=== PATIENT | female | born 1930 | race Caucasian/White ===

== ENCOUNTER 2017-06-24 10:53 | Emergency (ER) | payer MEDICARE, BC ==
--- NOTE | 2017-06-24 12:12 | ERPHSYRPT ---
- History of Present Illness Time Seen by Provider: 06/24/17 11:54 Source: patient, family (son and daughter in law) Patient Subjective Stated Complaint: vomiting and diarrhea lst pm, denies fever , family is historian due to patient having alzheimers Triage Nursing Assessment: pt to er per wheelchair with daugher in law, family reports caregivier advised diarrhea and vomiting last night, no fever, denies pain or discomfort, denies any other complaints Physician History: CC: vomiting and diarrhea Hx: 87 y/o Alzheimer patient cared for at home with 24 hour family care. She has had copious vomiting and diarrhea thru the night./ This AM was generally weak and barely able to walk. No focal weakness. Stared at them funny. No further vomiting or diarrhea. No fever. She sees Dr Camacho. Timing/Duration: today, yesterday Allergies/Adverse Reactions: No Known Drug Allergies Allergy (Verified 03/12/16 15:12) Hx Tetanus, Diphtheria Vaccination/Date Given: No Hx Influenza Vaccination/Date Given: Yes Hx Pneumococcal Vaccination/Date Given: Yes - Review of Systems Constitutional: Fatigue, Malaise, Weakness, No Fever, No Chills Eyes: No Symptoms Ears, Nose, & Throat: No Symptoms Respiratory: No Cough, No Dyspnea Cardiac: No Chest Pain Abdominal/Gastrointestinal: Nausea, Vomiting, Diarrhea, No Abdominal Pain Genitourinary Symptoms: No Dysuria Skin: No Rash Neurological: No Headache All Other Systems: Reviewed and Negative - Past Medical History Pertinent Past Medical History: Yes Neurological History: Alzheimer's Disease ENT History: No Pertinent History Cardiac History: No Pertinent History Respiratory History: No Pertinent History Endocrine Medical History: No Pertinent History Musculoskeletal History: No Pertinent History GI Medical History: No Pertinent History History: No Pertinent History Psycho-Social History: No Pertinent History Female Reproductive Disorders: No Pertinent History Other Medical History: daughter in law states no medical history, no surgical history, no medication, no allergies, has 24 hour accompaniment in her own home - Past Surgical History Past Surgical History: No Neuro Surgical History: No Pertinent History Cardiac: No Pertinent History Respiratory: No Pertinent History Gastrointestinal: No Pertinent History Genitourinary: No Pertinent History Musculoskeletal: No Pertinent History Female Surgical History: No Pertinent History Other Surgical History: JOINT ASPIRATION OF THE KNEE - Social History Smoking Status: Never smoker Exposure to second hand smoke: No Drug Use: none Patient Lives Alone: No (cared for by family) - Female History Hx Now: No - Nursing Vital Signs Nursing Vital Signs: Initial Vital Signs Temperature 97.9 F 06/24/17 11:07 Pulse Rate 74 06/24/17 11:07 Respiratory Rate 20 06/24/17 11:07 Blood Pressure 187/85 06/24/17 11:07 O2 Sat by Pulse Oximetry 99 06/24/17 11:07 Pain Scale Pain Intensity 0 - Physical Exam General Appearance: alert Eye Exam: PERRL/EOMI Ears, Nose, Throat Exam: dry mucous membranes Neck Exam: normal inspection, non-tender, supple Respiratory Exam: normal breath sounds Cardiovascular Exam: regular rate/rhythm Gastrointestinal/Abdomen Exam: soft, No tenderness, No distention Extremity Exam: normal inspection, normal range of motion Neurologic Exam: alert, cooperative (but has trouble understanding everything due to dementia), No motor deficits Skin Exam: warm, dry, No rash SpO2 Interpretation: normal SpO2: 99 Oxygen Delivery: Room Air - Course Nursing assessment & vital signs reviewed: Yes EKG Interpreted by Me: RATE (71), Sinus Rhythm, NORMAL AXIS, NORMAL INTERVALS ( QTc 429), NORMAL QRS, NORMAL ST-T - Radiology Exams AAS X-ray Interpretation: Teleradiologist Report (a few small bowel air fluid leveling, rule out ileus vs enteritis.) Ordered Tests: Active Orders 24 hr Category Date Time Status Cath for Specimen-Straight STAT Care 06/24/17 12:08 Active EKG-ER Only STAT Care 06/24/17 12:07 Active Gown/Disrobe Pt STAT Care 06/24/17 12:09 Active IV Insertion STAT Care 06/24/17 12:07 Active OBSTR/ACUTE ABDOMEN SERIES Stat Exams 06/24/17 12:08 Completed CBC W DIFF Stat Lab 06/24/17 12:37 Completed CMP Stat Lab 06/24/17 12:37 Completed CULTURE,URINE Stat Lab 06/24/17 13:05 Received Lactic Acid Stat Lab 06/24/17 12:07 Completed UA W/ MICROSCOPIC Stat Lab 06/24/17 13:05 Completed Medication Summary Generic Name Dose Route Start Last Admin Trade Name Freq PRN Reason Stop Dose Admin Lactated Ringer's 1,000 mls @ 100 mls/hr 06/24/17 12:30 06/24/17 12:46 Lactated Ringers IV 07/24/17 12:29 100 mls/hr .Q10H SHANTE Administration Discontinued Medications Generic Name Dose Route Start Last Admin Trade Name Jael PRN Reason Stop Dose Admin Ceftriaxone Sodium/Dextrose 1 g in 50 mls @ 100 mls/hr 06/24/17 13:24 13:52 Rocephin 1 Gm-D5w 50 Ml Bag IV 06/24/17 13:53 100 mls/hr STAT STA Administration Ceftriaxone Sodium/Dextrose Confirm 06/24/17 13:50 Rocephin 1 Gm-D5w 50 Ml Bag Administered 06/24/17 13:51 Dose 1 g in 50 mls @ ud IV .STK-MED ONE Ondansetron HCl 4 mg 06/24/17 13:25 06/24/17 13:52 Zofran 4 Mg/2 Ml Vial IV 06/24/17 13:26 4 mg STAT ONE Administration Ondansetron HCl Confirm 06/24/17 13:49 Zofran 4 Mg/2 Ml Vial Administered 06/24/17 13:50 Dose 4 mg .ROUTE .STK-MED ONE Lab/Rad Data: Laboratory Result Diagrams 06/24/17 12:37 06/24/17 12:37 Laboratory Results 06/24/17 06/24/17 06/24/17 Range/Units 13:05 12:37 12:37 WBC 8.9 (4.0-10.5) K/mm3 RBC 4.94 (4.1-5.4) M/mm3 Hgb 13.6 (12.0-16.0) gm/dl Hct 41.7 (35-47) % MCV 84.4 (78-100) fl MCH 27.5 (26-32) pg MCHC 32.6 (32-36) g/dl RDW 14.7 H (11.5-14.0) % Plt Count 221 (150-450) K/mm3 MPV 9.2 (6-9.5) fl Gran % 83.2 H (36.0-66.0) % Lymphocytes % 7.6 L (24.0-44.0) % Monocytes % 8.5 (0.0-12.0) % Eosinophils % 0.6 (0.00-5.0) % Basophils % 0.1 (0.0-0.4) % Basophils # 0.01 (0-0.4) Sodium 141 (137-145) mmol/L Potassium 4.5 (3.5-5.1) mmol/L Chloride 103 (98-107) mEq/L Carbon Dioxide 26 (22-30) mmol/L Anion Gap 15.5 MEQ/L BUN 22 H (7-17) mg/dl Creatinine 1.08 H (0.52-1.04) mg/dl Estimated GFR 51 ML/MIN Glucose 103 (74-106) mg/dL Lactic Acid (0.4-2.0) Calcium 9.3 (8.4-10.2) mg/dl Total Bilirubin 0.70 (0.2-1.3) mg/d? AST 18 (14-36) U/L ALT 13 (0-35) U/L Alkaline Phosphatase 95 (38-126) U/L Serum Total Protein 6.7 (6.3-8.2) mg/dl Albumin 4.0 (3.5-5.0) g/dl Ur Collection Type CATH Urine Color YELLOW (YELLOW) Urine Appearance HAZY (CLEAR) Urine pH 5.0 (5-6) Ur Specific [place] 1.010 (1.005-1.025) Urine Protein TRACE (Negative) Urine Ketones NEGATIVE (NEGATIVE) Urine Blood 50 (0-5) Rafy/ul Urine Nitrite POSITIVE (NEGATIVE) Urine Bilirubin SMALL (NEGATIVE) Urine Urobilinogen NORMAL (0-1) mg/dL Ur Leukocyte Esterase TRACE (NEGATIVE) Urine Microscopic RBC 0-2 (0-2) /HPF Urine Microscopic WBC 10-15 (0-5) /HPF Urine Bacteria PACKED (NEGATIVE) /HPF Urine Culture Reflexed YES (NO) Urine Glucose NEGATIVE (NEGATIVE) mg/dL Specimen Received 06/24/17 1305 06/24/17 Range/Units 12:07 WBC (4.0-10.5) K/mm3 RBC (4.1-5.4) M/mm3 Hgb (12.0-16.0) gm/dl Hct (35-47) % MCV (78-100) fl MCH (26-32) pg MCHC (32-36) g/dl RDW (11.5-14.0) % Plt Count (150-450) K/mm3 MPV (6-9.5) fl Gran % (36.0-66.0) % Lymphocytes % (24.0-44.0) % Monocytes % (0.0-12.0) % Eosinophils % (0.00-5.0) % Basophils % (0.0-0.4) % Basophils # (0-0.4) Sodium (137-145) mmol/L Potassium (3.5-5.1) mmol/L Chloride (98-107) mEq/L Carbon Dioxide (22-30) mmol/L Anion Gap MEQ/L BUN (7-17) mg/dl Creatinine (0.52-1.04) mg/dl Estimated GFR ML/MIN Glucose (74-106) mg/dL Lactic Acid 1.8 (0.4-2.0) Calcium (8.4-10.2) mg/dl Total Bilirubin (0.2-1.3) mg/d? AST (14-36) U/L ALT (0-35) U/L Alkaline Phosphatase (38-126) U/L Serum Total Protein (6.3-8.2) mg/dl Albumin (3.5-5.0) g/dl Ur Collection Type Urine Color (YELLOW) Urine Appearance (CLEAR) Urine pH (5-6) Ur Specific [place] (1.005-1.025) Urine Protein (Negative) Urine Ketones (NEGATIVE) Urine Blood (0-5) Rafy/ul Urine Nitrite (NEGATIVE) Urine Bilirubin (NEGATIVE) Urine Urobilinogen (0-1) mg/dL Ur Leukocyte Esterase (NEGATIVE) Urine Microscopic RBC (0-2) /HPF Urine Microscopic WBC (0-5) /HPF Urine Bacteria (NEGATIVE) /HPF Urine Culture Reflexed (NO) Urine Glucose (NEGATIVE) mg/dL Specimen Received - Progress Progress Note: 06/24/17 14:48 Pt doing well here. A little general weak but walked in [place]. She ate a popsicle. Family prefers to take her home. Rx keflex and zofran. Counseled pt/family regarding: lab results, diagnosis, need for follow-up, rad results - Departure Time of Disposition: 14:48 Departure Disposition: Home Clinical Impression: Vomiting and diarrhea, UTI (urinary tract infection) Condition: Stable Critical Care Time: No Referrals: MICHAEL CAMACHO [Primary Care Provider] - Instructions: Diarrhea and Traveler's Diarrhea, Adult (DC), Nausea and Vomiting , Adult (DC) Additional Instructions: URINARY TRACT INFECTION 1. You will need to drink plenty of fluids in order to keep your urinary system flushed. These fluids should mainly consist of water and juices. 2. Take medications as directed. You need to completely finish any antiobiotic prescription given. 3. Try to avoid coffee, tea, alcohol, and seasoned foods as they may cause bladder irritation. 4. If signs and symptoms persist after 3-4 days, you will need to follow up with your family physician. 5. Female Patients: A. Avoid intercourse for 3-4 days. B. Empty bladder before and after intercourse to reduce risk of re- infection. C. After emptying bladder, wipe from front to back to reduce the risk of re- infection. Sip fluids. Rx zofran to [facility] Return for problems or concerns. Prescriptions: Ondansetron ODT 4 MG [Zofran Odt 4 mg] 1 tab PO Q6H PRN PRN #10 tab.rapdis PRN Reason: Nausea/Vomiting Cephalexin Mh 500 mg [Keflex 500 mg] 1 cap PO TID #21 capsule
[2017-06-24] MEDS ORDERED: Lactated Ringers 1,000 ML IV SCH (12:30)
[2017-06-24] MEDS ORDERED: Lactated Ringers 1,000 ML IV ONE (12:45)
[2017-06-24 12:48] LABS: BASOPHIL % 0.1 % (0.0-0.4); Basophil (Absolute #) 0.01 (0-0.4); Eosinophil % 0.6 % (0.00-5.0); Eosinophil (Absolute #) 0.05 (0-0.5); Granulocyte Absolute (ANC) 7.39 (1.4-6.9); Granulocytes % 83.2 % (36.0-66.0); Hematocrit 41.7 % (35-47); Hemoglobin 13.6 gm/dl (12.0-16.0); Lymphocyte (Absolute #) 0.67 (1.0-4.6); Lymphocytes % 7.6 % (24.0-44.0); Mean Cell Volume 84.4 fl (78-100); Mean Corpuscular Hemoglobin 27.5 pg (26-32); Mean Corpuscular Hgb Concent. 32.6 g/dl (32-36); Mean Platelet Volume 9.2 fl (6-9.5); Monocyte (Absolute #) 0.75 (0.0-1.3); Monocytes % 8.5 % (0.0-12.0); Platelet Count 221 K/mm3 (150-450); Red Blood Count 4.94 M/mm3 (4.1-5.4); Red Cell Distribution Width 14.7 % (11.5-14.0); White Blood Count 8.9 K/mm3 (4.0-10.5)
[2017-06-24 12:56] LABS: ANION GAP 15.5 MEQ/L; BILIRUBIN,TOTAL 0.7 mg/d? (0.2-1.3); Calcium 9.3 mg/dl (8.4-10.2); Creatinine 1 1.08 mg/dl (0.52-1.04); Potassium 4.5 mmol/L (3.5-5.1); Total Protein 6.7 mg/dl (6.3-8.2)
--- NOTE | 2017-06-24 13:06 | XRAY ---
Indication: Left upper abdominal pain. Vomiting. Comparison: None 2 views of the abdomen demonstrates a few small bowel air-fluid leveling. No focal bowel dilatation or obstruction. Previous cholecystectomy. Remaining solid organs unremarkable. Osseous structures demonstrates moderate osteopenia, multilevel degenerative spondylosis, and moderate levorotoscoliosis centered at L2-L3 level. Also mild bilateral hip degenerative changes. Single PA chest demonstrates minor fissure thickening. No infiltrate, consolidation, or large effusion. Heart is not enlarged. Mild aortic calcifications. Bony thorax intact with mild osteopenia, degenerative changes including right shoulder heterotopic ossifications, and double curvature scoliosis. Impression: 1. A few small bowel air-fluid leveling. Rule out ileus versus enteritis. 2. Nonacute 1 view chest with chronic features.
[2017-06-24 13:19] LABS: Appearance HAZY (CLEAR); Bilirubin SMALL (NEGATIVE); Blood 50 Ery/ul (0-5); Glucose NEGATIVE (NEGATIVE); Ketones NEGATIVE (NEGATIVE); Leukocyte Esterase TRACE (NEGATIVE); Nitrite POSITIVE (NEGATIVE); Protein,Urine Dip TRACE (Negative); Urobilinogen NORMAL mg/dL (0-1)
[2017-06-24 13:20] LABS: Bacteria PACKED /HPF (NEGATIVE)
[2017-06-24] MEDS ORDERED: ROCEPHIN 1 Gm-D5w 50 ml Bag** 1 G/50 ML IVPB IV STA (13:24)
[2017-06-24] MEDS ORDERED: Zofran 4 MG/2 ML VIAL IV ONE (13:25)
[2017-06-24] MEDS ORDERED: Zofran 4 MG/2 ML VIAL ONE (13:49)
[2017-06-24] MEDS ORDERED: ROCEPHIN 1 Gm-D5w 50 ml Bag** 1 G/50 ML IVPB IV ONE (13:50)
[2017-06-24 14:39] VITALS: BP 170/78; PULSE 68
[2017-06-24 14:51] VITALS: O2SAT 99
== END 2017-06-24 15:34 | disposition home or self-care (01) ==
LOC: ED 10:53
DX: R11.2 Nausea with vomiting, unspecified (principal); R19.7 Diarrhea, unspecified; N39.0 Urinary tract infection, site not specified; G30.9 Alzheimer's disease, unspecified; F02.80 Dementia in other diseases classified elsewhere, unspecified severity, without behavioral disturbance, psychotic disturbance, mood disturbance, and anxiety
CPT/HCPCS: 96374; 96365; 99285; 36000; 96360; 96361; 93005; 81000; 36415; 87186; 85025; 87077; 80053; 87086; 74022; 83605; P9612; 96367; J0696; J2405

== ENCOUNTER 2017-07-20 11:04 | Emergency (ER) | payer MEDICARE, BC ==
[2017-07-20] MEDS ORDERED: Catapres 0.1 MG PO ONE (11:25)
[2017-07-20] MEDS ORDERED: Sodium Chloride 0.9% 1000 ML 1,000 ML IV STA (11:25)
[2017-07-20] MEDS ORDERED: VASOTEC I.V. 2.5 MG IV ONE ×2 (11:25→11:32)
[2017-07-20] MEDS ORDERED: Sodium Chloride 0.9% 1000 ML 1,000 ML ONE (11:32)
[2017-07-20] MEDS ORDERED: Catapres 0.1 MG ONE (11:32)
--- NOTE | 2017-07-20 11:37 | ERPHSYRPT ---
- History of Present Illness Time Seen by Provider: 07/20/17 11:35 Source: patient, family Exam Limitations: no limitations Patient Subjective Stated Complaint: pt family reports pt with Alzheimer's with increased confusion, states care givers report a strong smell to the urine and a darker color than normal. pt denies pain. pt denies urinary s/s. Triage Nursing Assessment: pt is aox1, pupils perrl, pt is afebrile, resps easy and non labored, radial pulses are strong and equal. abd is soft and non tender , bowel sounds are present and normoactive x4. no edema appreciated to bilat lower extremities. Physician History: 87-year-old female without any significant past medical history except for dementia according to [id number] started having confusion episodes since yesterday. She was talking about her mother who has been for long years. Her [id number] also noticed that her urine is very cloudy and foul- smelling. Although patient denies any other symptoms. Timing/Duration: yesterday Associated Symptoms: denies symptoms Allergies/Adverse Reactions: No Known Drug Allergies Allergy (Verified 03/12/16 15:12) Hx Tetanus, Diphtheria Vaccination/Date Given: Yes Hx Influenza Vaccination/Date Given: Yes Hx Pneumococcal Vaccination/Date Given: Yes Immunizations Up to Date: Yes - Review of Systems Constitutional: No Fever, No Chills Eyes: No Symptoms Ears, Nose, & Throat: No Symptoms Respiratory: No Cough, No Dyspnea Cardiac: No Chest Pain, No Edema, No Syncope Abdominal/Gastrointestinal: No Abdominal Pain, No Nausea, No Vomiting, No Diarrhea Genitourinary Symptoms: No Dysuria Musculoskeletal: No Back Pain, No Neck Pain Skin: No Rash Neurological: No Dizziness, No Focal Weakness, No Sensory Changes Psychological: No Symptoms Endocrine: No Symptoms All Other Systems: Reviewed and Negative - Past Medical History Pertinent Past Medical History: Yes Neurological History: Alzheimer's Disease ENT History: No Pertinent History Cardiac History: No Pertinent History Respiratory History: No Pertinent History Endocrine Medical History: No Pertinent History Musculoskeletal History: No Pertinent History GI Medical History: No Pertinent History History: No Pertinent History Psycho-Social History: No Pertinent History Female Reproductive Disorders: No Pertinent History Other Medical History: daughter in law states no medical history, no surgical history, no medication, no allergies, has 24 hour accompaniment in her own home - Past Surgical History Past Surgical History: No Neuro Surgical History: No Pertinent History Cardiac: No Pertinent History Respiratory: No Pertinent History Gastrointestinal: No Pertinent History Genitourinary: No Pertinent History Musculoskeletal: No Pertinent History Female Surgical History: No Pertinent History Other Surgical History: JOINT ASPIRATION OF THE KNEE - Social History Smoking Status: Never smoker Exposure to second hand smoke: No Drug Use: none Patient Lives Alone: Yes (11/11 care nurse rn) - Nursing Vital Signs Nursing Vital Signs: Initial Vital Signs Temperature 97.6 F 07/20/17 11:07 Pulse Rate 68 07/20/17 11:07 Respiratory Rate 20 07/20/17 11:07 Blood Pressure 197/115 07/20/17 11:07 O2 Sat by Pulse Oximetry 96 07/20/17 11:07 Pain Scale Pain Intensity 0 - Physical Exam General Appearance: no apparent distress, alert Eye Exam: PERRL/EOMI, eyes nml inspection Ears, Nose, Throat Exam: normal ENT inspection, TMs normal, pharynx normal, moist mucous membranes Neck Exam: normal inspection, non-tender, supple, full range of motion Respiratory Exam: normal breath sounds, lungs clear, No respiratory distress Cardiovascular Exam: regular rate/rhythm, normal heart sounds, normal peripheral pulses Gastrointestinal/Abdomen Exam: soft, normal bowel sounds, No tenderness, No mass Back Exam: normal inspection, normal range of motion, No CVA tenderness, No vertebral tenderness Extremity Exam: normal inspection, normal range of motion, pelvis stable Neurologic Exam: alert, oriented x 3, cooperative, normal mood/affect, nml cerebellar function, nml station & gait, sensation nml, No motor deficits Skin Exam: normal color, warm, dry, No rash Lymphatic Exam: No adenopathy SpO2: 96 Oxygen Delivery: Room Air - Course Nursing assessment & vital signs reviewed: Yes EKG Interpreted by Me: Sinus Rhythm Ordered Tests: Active Orders 24 hr Category Date Time Status Cloth Examiner Hand STAT Care 07/20/17 11:26 Active Clean Catch Urine Specimen STAT Care 07/20/17 11:26 Active EKG-ER Only STAT Care 07/20/17 11:25 Active IV Insertion STAT Care 07/20/17 11:26 Active Oxygen-ED Only NASAL CANNULA 2 lpm Care 07/20/17 11:25 Active HEAD WITHOUT CONTRAST [CT] Stat Exams 07/20/17 11:26 Taken CBC W DIFF Stat Lab 07/20/17 11:35 Completed CMP Stat Lab 07/20/17 11:35 Completed CULTURE,URINE Stat Lab 07/20/17 11:26 Received TROPONIN Q3H Lab 07/20/17 11:35 Received UA W/ MICROSCOPIC Stat Lab 07/20/17 11:26 Completed Urine Triage Profile Stat Lab 07/20/17 11:26 Received Medication Summary Discontinued Medications Generic Name Dose Route Start Last Admin Trade Name Jael PRN Reason Stop Dose Admin Clonidine 0.1 mg 07/20/17 11:25 07/20/17 11:36 Catapres 0.1 Mg PO 07/20/17 11:26 0.1 mg STAT ONE Administration Clonidine Confirm 07/20/17 11:32 Catapres 0.1 Mg Administered 07/20/17 11:33 Dose 0.1 mg .ROUTE .STK-MED ONE Enalaprilat 0.625 mg 07/20/17 11:25 07/20/17 11:36 Vasotec I.V. 2.5 Mg IV 07/20/17 11:26 0.625 mg STAT ONE Administration Enalaprilat Confirm 07/20/17 11:32 Vasotec I.V. 2.5 Mg Administered 07/20/17 11:33 Dose 2.5 mg IV .STK-MED ONE Sodium Chloride 1,000 mls @ 999 mls/hr 07/20/17 11:25 07/20/17 11:36 Sodium Chloride 0.9% 1000 Ml IV 07/20/17 12:25 999 mls/hr .Q1H1M STA Administration Sodium Chloride Confirm 07/20/17 11:32 Sodium Chloride 0.9% 1000 Ml Administered 07/20/17 11:33 Dose 1,000 mls @ ud .ROUTE .STK-MED ONE Ceftriaxone Sodium/Dextrose 1 g in 50 mls @ 100 mls/hr 07/20/17 12:03 12:21 Rocephin 1 Gm-D5w 50 Ml Bag IV 07/20/17 12:32 100 mls/hr STAT STA Administration Ceftriaxone Sodium/Dextrose Confirm 07/20/17 12:10 Rocephin 1 Gm-D5w 50 Ml Bag Administered 07/20/17 12:11 Dose 1 g in 50 mls @ ud IV .STK-MED ONE Lab/Rad Data: Laboratory Result Diagrams 07/20/17 11:35 07/20/17 11:35 Laboratory Results 07/20/17 07/20/17 07/20/17 Range/Units 11:35 11:35 11:26 WBC 5.7 (4.0-10.5) K/mm3 RBC 4.93 (4.1-5.4) M/mm3 Hgb 13.7 (12.0-16.0) gm/dl Hct 41.1 (35-47) % MCV 83.4 (78-100) fl MCH 27.8 (26-32) pg MCHC 33.3 (32-36) g/dl RDW 14.4 H (11.5-14.0) % Plt Count 232 (150-450) K/mm3 MPV 8.7 (6-9.5) fl Gran % 54.7 (36.0-66.0) % Eos # (Auto) 0.23 (0-0.5) Absolute Lymphs (auto) 1.54 (1.0-4.6) Absolute Monos (auto) 0.78 (0.0-1.3) Lymphocytes % 27.1 (24.0-44.0) % Monocytes % 13.7 H (0.0-12.0) % Eosinophils % 4.0 (0.00-5.0) % Basophils % 0.5 (0.0-0.4) % Absolute Granulocytes 3.11 (1.4-6.9) Basophils # 0.03 (0-0.4) Sodium 141 (137-145) mmol/L Potassium 4.5 (3.5-5.1) mmol/L Chloride 107 (98-107) mmol/L Carbon Dioxide 22 (22-30) mmol/L Anion Gap 16.3 H (5-15) MEQ/L BUN 14 (7-17) mg/dL Creatinine 0.93 (0.52-1.04) mg/dL Estimated GFR > 60 ML/MIN Glucose 87 (74-106) mg/dL Calcium 9.7 (8.4-10.2) mg/dL Total Bilirubin 0.50 (0.2-1.3) mg/dL AST 22 (14-36) U/L ALT 13 (0-35) U/L Alkaline Phosphatase 80 (38-126) U/L Serum Total Protein 7.2 (6.3-8.2) g/dL Albumin 4.1 (3.5-5.0) g/dL Ur Collection Type CLEAN CATCH Urine Color YELLOW (YELLOW) Urine Appearance CLOUDY (CLEAR) Urine pH 5.0 (5-6) Ur Specific [place] 1.010 (1.005-1.025) Urine Protein TRACE (Negative) Urine Ketones NEGATIVE (NEGATIVE) Urine Blood 250 (0-5) Rafy/ul Urine Nitrite POSITIVE (NEGATIVE) Urine Bilirubin NEGATIVE (NEGATIVE) Urine Urobilinogen NORMAL (0-1) mg/dL Ur Leukocyte Esterase 2+ (NEGATIVE) Urine Microscopic WBC >100 (0-5) /HPF Urine Bacteria PACKED (NEGATIVE) /HPF Urine Culture Reflexed YES (NO) Urine Glucose NEGATIVE (NEGATIVE) mg/dL Specimen Received 07-20-17 1126 - Progress Progress: improved Counseled pt/family regarding: lab results, diagnosis, need for follow-up, rad results - Departure Time of Disposition: 12:40 Departure Disposition: Home Clinical Impression: Essential hypertension, Vascular dementia with behavior disturbance UTI (urinary tract infection) Qualifiers: Urinary tract infection type: acute pyelonephritis Qualified Code(s): N10 - Acute pyelonephritis Condition: Stable Critical Care Time: Yes Critical Care Time(excluding separately billable procedures): 30-74 minutes Referrals: MICHAEL CAMACHO [Primary Care Provider] - Instructions: Urinary Tract Infection, Adult (DC), Dementia (Including Alzheimer Disease), Dementia (DC), Tips for Caregivers of People With Alzheimer Disease, Medicines for High Blood Pressure, High Blood Pressure (DC) Additional Instructions: I U-type hiPlease follow-up with your primary care physician in next 2-3 days. Please take your medication as prescribed. You do have a high blood pressure problem and for which I have prescribed lisinopril 5 mg daily for you. Your CT scan also showing some high blood pressure effects on your brain including dementia. Please contact your primary care physician to get consult with neurologist for further evaluation. Please follow the instructions given to you. Please take your medication as prescribed if given. If symptoms recur or get worse, come back to the emergency room if you cannot reach your primary care physician, or call your primary care physician for an appointment. Again if your symptoms get worse, come back to the emergency room. Thanks for visiting emergency room, and let us take care of you. URINARY TRACT INFECTION 1. You will need to drink plenty of fluids in order to keep your urinary system flushed. These fluids should mainly consist of water and juices. 2. Take medications as directed. You need to completely finish any antiobiotic prescription given. 3. Try to avoid coffee, tea, alcohol, and seasoned foods as they may cause bladder irritation. 4. If signs and symptoms persist after 3-4 days, you will need to follow up with your family physician. 5. Female Patients: A. Avoid intercourse for 3-4 days. B. Empty bladder before and after intercourse to reduce risk of re- infection. C. After emptying bladder, wipe from front to back to reduce the risk of re- infection. SAMANTHASKYLER MALIK was seen on 07/20/17 n the Emergency Room. At that time you were treated for an emergent condition, during your visit Laboratory, Radiology and/or other procedures may have been ordered. It is very important that you follow-up with your Primary Care Physician MICHAEL CAMACHO within the next 24- 48 hours to review your Emergency Room visit and the final results of testing that was ordered. Some test results such as Urine Cultures, Blood Cultures, and other cultures if ordered will not be finalized for 24-48 hours. If you do not have a Primary Care Provider please call the medical records department at [phone] to obtain a copy of your results or you may sign into our patient portal to obtain these results by visiting us @ [email or web address] and completing the following steps: 1. Click on the Patient Portal link 2. Click the Patient Self Enrollment Link to complete the enrollment form and entering your 3. Once the enrollment form is completed you will receive an email with a temporary ID and password at the email address you provided. 4. Next choose a user name and password. Your user name must be at least 4 characters long and your password must be at least 4 characters long. 5. Choose a security question from the list and provide your answer to the question. If you already have signed into the Health Portal you may access your Health Care Information 11/11 by the following steps: 1. Login to our website @ [email or web address] 2. Enter your original user name and password. FAQS The [facility] Health Portal is an online tool that contains your Lab Results, Radiology Reports, Visit History, Discharge Instructions and Health Summary Lab and Radiology Results will not be available for 72 hours on the portal. The Portal is a secure site, passwords are encryted and URLs are re-written so they cannot be copied and pasted. You and authorized family members are the only ones who can access your Portal. Also there is a timeout feature that protects your information if you leave the Portal page open. If you have technical difficulty please use the Contact Us link on the page this will allow you to submit any questions you have regarding the Portal or you may contact the Medical Record Department at [phone]. Prescriptions: Ciprofloxacin HCl [Cipro] 250 mg PO BID #15 tablet Lisinopril 5 mg [Zestril 5 MG] 5 mg PO DAILY #30 tablet
[2017-07-20 11:45] LABS: BASOPHIL % 0.5 % (0.0-0.4); Basophil (Absolute #) 0.03 (0-0.4); Eosinophil (Absolute #) 0.23 (0-0.5); Granulocyte Absolute (ANC) 3.11 (1.4-6.9); Granulocytes % 54.7 % (36.0-66.0); Hematocrit 41.1 % (35-47); Hemoglobin 13.7 gm/dl (12.0-16.0); Lymphocyte (Absolute #) 1.54 (1.0-4.6); Lymphocytes % 27.1 % (24.0-44.0); Mean Cell Volume 83.4 fl (78-100); Mean Corpuscular Hemoglobin 27.8 pg (26-32); Mean Corpuscular Hgb Concent. 33.3 g/dl (32-36); Mean Platelet Volume 8.7 fl (6-9.5); Monocyte (Absolute #) 0.78 (0.0-1.3); Monocytes % 13.7 % (0.0-12.0); Platelet Count 232 K/mm3 (150-450); Red Blood Count 4.93 M/mm3 (4.1-5.4); Red Cell Distribution Width 14.4 % (11.5-14.0); White Blood Count 5.7 K/mm3 (4.0-10.5)
[2017-07-20 11:46] LABS: Appearance CLOUDY (CLEAR); Bilirubin NEGATIVE (NEGATIVE); Blood 250 Ery/ul (0-5); Glucose NEGATIVE (NEGATIVE); Ketones NEGATIVE (NEGATIVE); Leukocyte Esterase 2+ (NEGATIVE); Nitrite POSITIVE (NEGATIVE); Protein,Urine Dip TRACE (Negative); Urobilinogen NORMAL mg/dL (0-1)
[2017-07-20 11:57] LABS: ALBUMIN 4.1 g/dL (3.5-5.0); ALKALINE PHOSPHATASE 80 U/L (38-126); ANION GAP 16.3 MEQ/L (5-15); BLOOD UREA NITROGEN 14 mg/dL (7-17); CHLORIDE 107 mmol/L (98-107); Calcium 9.7 mg/dL (8.4-10.2); Carbon Dioxide 22 mmol/L (22-30); Creatinine 1 0.93 mg/dL (0.52-1.04); Glucose 87 mg/dL (74-106); Potassium 4.5 mmol/L (3.5-5.1); SGOT/AST 22 U/L (14-36); SGPT/ALT 13 U/L (0-35); SODIUM 141 mmol/L (137-145); Total Protein 7.2 g/dL (6.3-8.2)
[2017-07-20 11:57] LABS: Bacteria PACKED /HPF (NEGATIVE); WBC >100 /HPF (0-5)
[2017-07-20] MEDS ORDERED: ROCEPHIN 1 Gm-D5w 50 ml Bag** 1 G/50 ML IVPB IV STA (12:03)
[2017-07-20] MEDS ORDERED: ROCEPHIN 1 Gm-D5w 50 ml Bag** 1 G/50 ML IVPB IV ONE (12:10)
[2017-07-20 12:24] LABS: Amphetamine,Urine NEGATIVE (NEGATIVE); Barbiturate,Urine NEGATIVE (NEGATIVE); Benzodiazepine,Urine NEGATIVE (NEGATIVE); Cocaine,Urine NEGATIVE (NEGATIVE); Methadone,Urine NEGATIVE (NEGATIVE); Opiate,Urine NEGATIVE (NEGATIVE); PCP,Urine NEGATIVE (NEGATIVE); THC,Urine NEGATIVE (NEGATIVE)
[2017-07-20 13:08] VITALS: BP 160/81; PULSE 72; O2SAT 99
--- NOTE | 2017-07-20 20:48 | XRAY ---
Indication: Confusion. Multiple contiguous axial images obtained through the head without contrast. Comparison: None Age-appropriate global atrophy and moderate periventricular degenerative micro-ischemia bilaterally. No acute intracranial hemorrhage, abnormal extra-axial fluid collection, or mass effect. Fourth ventricle is midline without hydrocephalus. Bony calvarium intact. Visualized paranasal sinuses and mastoid air cells are clear. Impression: Nonacute senile brain. Comment: Preliminary interpretation was made by [facility]. No discrepancy. CTDI 66.59
== END 2017-07-20 13:05 | disposition home or self-care (01) ==
LOC: ED 11:04
DX: N10 Acute pyelonephritis (principal); F01.51 Vascular dementia, unspecified severity, with behavioral disturbance; I10 Essential (primary) hypertension
CPT/HCPCS: 36000; 36415; 70450; 80053; 80307; 81000; 84484; 85025; 87077; 87086; 87186; 93005; 93041; 96360; 96365; 96374; 99284; J0696; A9270-GY

== ENCOUNTER 2017-10-20 21:20 | Emergency (ER) | payer MEDICARE, BC ==
--- NOTE | 2017-10-20 21:47 | ERPHSYRPT ---
- History of Present Illness Time Seen by Provider: 10/20/17 21:36 Source: patient, family Exam Limitations: other (dementia) Physician History: The patient is an 87-year-old female with dementia with her family complaining of intermittent headaches for about 2 weeks. Tonight the patient does not want to clearly state she has a headache, however, her daughter stated that the patient was crying because of her head was hurting just before arrival. Tshe daughter states the patient's BP always goes up when she sees the doctor. The patient does not appear to be in any distress at this time. She denies vomiting or light avoidance. The daughter gave her ibuprofen 200 mg earlier today. Her past medical history significant for dementia, hypertension, and recent removal of skin lesions from her face. Timing/Duration: week(s) (2), intermittent, improved Quality: aching Head Pain Location: global Severity of Pain-Max: severe Severity of Pain-Current: none Recent Head Trauma: occasional headaches Associated Symptoms: denies symptoms Previous symptoms: no prior history Allergies/Adverse Reactions: No Known Drug Allergies Allergy (Verified 10/20/17 21:41) Hx Tetanus, Diphtheria Vaccination/Date Given: Yes Hx Influenza Vaccination/Date Given: Yes Hx Pneumococcal Vaccination/Date Given: Yes - Review of Systems Constitutional: No Fever, No Chills Eyes: No Symptoms Ears, Nose, & Throat: No Symptoms Respiratory: No Cough, No Dyspnea Cardiac: No Chest Pain, No Edema, No Syncope Abdominal/Gastrointestinal: No Abdominal Pain, No Nausea, No Vomiting, No Diarrhea Genitourinary Symptoms: No Dysuria Musculoskeletal: No Back Pain, No Neck Pain Skin: No Rash Neurological: Headache Psychological: No Symptoms Endocrine: No Symptoms Hematologic/Lymphatic: No Symptoms Immunological/Allergic: No Symptoms All Other Systems: Reviewed and Negative - Past Medical History Pertinent Past Medical History: Yes Neurological History: Alzheimer's Disease ENT History: No Pertinent History Cardiac History: No Pertinent History Respiratory History: No Pertinent History Endocrine Medical History: No Pertinent History Musculoskeletal History: No Pertinent History GI Medical History: No Pertinent History History: No Pertinent History Psycho-Social History: No Pertinent History Female Reproductive Disorders: No Pertinent History Other Medical History: daughter in law states no medical history, no surgical history, no medication, no allergies, has 24 hour accompaniment in her own home - Past Surgical History Past Surgical History: No Neuro Surgical History: No Pertinent History Cardiac: No Pertinent History Respiratory: No Pertinent History Gastrointestinal: No Pertinent History Genitourinary: No Pertinent History Musculoskeletal: No Pertinent History Female Surgical History: No Pertinent History Other Surgical History: JOINT ASPIRATION OF THE KNEE - Social History Smoking Status: Never smoker Exposure to second hand smoke: No Drug Use: none 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) - Nursing Vital Signs Nursing Vital Signs: Initial Vital Signs Temperature 97.9 F 10/20/17 21:27 Pulse Rate 69 10/20/17 21:27 Respiratory Rate 18 10/20/17 21:27 Blood Pressure 203/91 10/20/17 21:27 O2 Sat by Pulse Oximetry 97 10/20/17 21:27 Pain Scale Pain Intensity 5 - Physical Exam General Appearance: no apparent distress Eye Exam: PERRL/EOMI Ears, Nose, Throat Exam: normal ENT inspection, moist mucous membranes Neck Exam: normal inspection, supple, full range of motion, No meningismus Respiratory Exam: normal breath sounds, lungs clear Cardiovascular Exam: regular rate/rhythm, normal heart sounds Gastrointestinal/Abdominal Exam: soft, No tenderness, No distention Back Exam: normal inspection, normal range of motion Extremity Exam: normal inspection Mental Status Exam: alert, oriented x 3, 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 Exam: normal speech, PERRL, tongue midline, No abnormal pupil position, No abnormal speech, No facial asymmetry, No facial droop, No facial paresthesias, No facial weakness, No hearing deficit (R), No hearing deficit (L), No tongue deviation to R, No tongue deviation to L Coordination/Gait Exam: normal cerebellar function Motor/Sensory Exam: no motor deficit, no sensory deficit Skin Exam: normal color, warm, dry, No rash SpO2 Interpretation: normal Oxygen Delivery: Room Air - CT Exams Head CT Interpretation: Negative, Tele-radiologist Report (Per Dr Harris), No/ Intracranial Hemorrhag Ordered Tests: Active Orders 24 hr Category Date Time Status IV Insertion STAT Care 10/20/17 21:48 Active HEAD WITHOUT CONTRAST [CT] Stat Exams 10/20/17 21:48 Taken BMP Stat Lab 10/20/17 21:30 Completed CBC W DIFF Stat Lab 10/20/17 21:30 Completed CULTURE,URINE Stat Lab 10/20/17 22:06 Received UA W/ MICROSCOPIC Stat Lab 10/20/17 22:06 Completed Medication Summary Discontinued Medications Generic Name Dose Route Start Last Admin Trade Name Jeal PRN Reason Stop Dose Admin Acetaminophen 1,000 mg 10/20/17 22:36 10/20/17 22:41 Tylenol Extra Strength 500 Mg PO 10/20/17 22:37 1,000 mg STAT STA Administration Acetaminophen Confirm 10/20/17 22:41 Tylenol Extra Strength 500 Mg Administered 10/20/17 22:42 Dose 1,000 mg .ROUTE .STK-MED ONE Lorazepam 0.5 mg 10/20/17 21:49 10/20/17 22:06 Ativan 2 Mg/1 Ml Vial IV 10/20/17 21:50 0.5 mg STAT ONE Administration Lorazepam Confirm 10/20/17 21:51 Ativan 2 Mg/1 Ml Vial Administered 10/20/17 21:52 Dose 2 mg .ROUTE .STK-MED ONE Lab/Rad Data: Laboratory Result Diagrams 10/20/17 21:30 10/20/17 21:30 Laboratory Results 10/20/17 10/20/17 10/20/17 Range/Units 22:06 21:30 21:30 WBC 5.5 (4.0-10.5) K/mm3 RBC 4.87 (4.1-5.4) M/mm3 Hgb 13.9 (12.0-16.0) gm/dl Hct 41.0 (35-47) % MCV 84.2 (78-100) fl MCH 28.5 (26-32) pg MCHC 33.9 (32-36) g/dl RDW 14.8 H (11.5-14.0) % Plt Count 214 (150-450) K/mm3 MPV 8.8 (6-9.5) fl Gran % 44.8 (36.0-66.0) % Eos # (Auto) 0.44 (0-0.5) Absolute Lymphs (auto) 1.74 (1.0-4.6) Absolute Monos (auto) 0.83 (0.0-1.3) Lymphocytes % 31.5 (24.0-44.0) % Monocytes % 15.0 H (0.0-12.0) % Eosinophils % 8.0 H (0.00-5.0) % Basophils % 0.7 (0.0-0.4) % Absolute Granulocytes 2.47 (1.4-6.9) Basophils # 0.04 (0-0.4) Sodium 141 (137-145) mmol/L Potassium 4.4 (3.5-5.1) mmol/L Chloride 109 H (98-107) mmol/L Carbon Dioxide 23 (22-30) mmol/L Anion Gap 13.5 (5-15) MEQ/L BUN 29 H (7-17) mg/dL Creatinine 1.16 H (0.52-1.04) mg/dL Estimated GFR 46.9 ML/MIN Glucose 107 H (74-106) mg/dL Calcium 9.4 (8.4-10.2) mg/dL Ur Collection Type VOID Urine Color YELLOW (YELLOW) Urine Appearance CLEAR (CLEAR) Urine pH 5.0 (5-6) Ur Specific [place] 1.025 (1.005-1.025) Urine Protein TRACE (Negative) Urine Ketones NEGATIVE (NEGATIVE) Urine Blood 5-10 (0-5) Rafy/ul Urine Nitrite NEGATIVE (NEGATIVE) Urine Bilirubin NEGATIVE (NEGATIVE) Urine Urobilinogen NORMAL (0-1) mg/dL Ur Leukocyte Esterase NEGATIVE (NEGATIVE) Urine Microscopic RBC 0-2 (0-2) /HPF Urine Microscopic WBC 0-2 (0-5) /HPF Ur Epithelial Cells RARE (FEW) /HPF Urine Bacteria RARE (NEGATIVE) /HPF Urine Culture Reflexed YES (NO) Urine Glucose NEGATIVE (NEGATIVE) mg/dL Specimen Received 10/20/170 - Progress Progress: improved Progress Note: 10/20/17 23:16 I discussed pt's BP with family. Counseled pt/family regarding: lab results, diagnosis, need for follow-up, rad results - Departure Time of Disposition: 23:12 Departure Disposition: Home Clinical Impression: Headache Condition: Stable Critical Care Time: No Referrals: MICHAEL CAMACHO [Primary Care Provider] - Additional Instructions: You have intermittent headaches. Today in the ER your blood pressure was also elevated. Your family states that your blood pressure goes up when you see a doctor. Today you were given Ativan 0.5 mg by IV and Tylenol 1000 mg orally in the ER. Continue taking Tylenol 1000 mg 3 times a day. Check your blood pressure when you are home tonight and if it is still elevated, please take another lisinopril 5 mg. Follow-up with your primary medical doctor next week.
[2017-10-20] MEDS ORDERED: Ativan 2 MG/1 ML VIAL IV ONE (21:49)
[2017-10-20] MEDS ORDERED: Ativan 2 MG/1 ML VIAL ONE (21:51)
[2017-10-20 21:54] LABS: BASOPHIL % 0.7 % (0.0-0.4); Basophil (Absolute #) 0.04 (0-0.4); Eosinophil (Absolute #) 0.44 (0-0.5); Granulocyte Absolute (ANC) 2.47 (1.4-6.9); Granulocytes % 44.8 % (36.0-66.0); Hemoglobin 13.9 gm/dl (12.0-16.0); Lymphocyte (Absolute #) 1.74 (1.0-4.6); Lymphocytes % 31.5 % (24.0-44.0); Mean Cell Volume 84.2 fl (78-100); Mean Corpuscular Hemoglobin 28.5 pg (26-32); Mean Corpuscular Hgb Concent. 33.9 g/dl (32-36); Mean Platelet Volume 8.8 fl (6-9.5); Monocyte (Absolute #) 0.83 (0.0-1.3); Platelet Count 214 K/mm3 (150-450); Red Blood Count 4.87 M/mm3 (4.1-5.4); Red Cell Distribution Width 14.8 % (11.5-14.0); White Blood Count 5.5 K/mm3 (4.0-10.5)
[2017-10-20 22:09] LABS: ANION GAP 13.5 MEQ/L (5-15); Calcium 9.4 mg/dL (8.4-10.2); Creatinine 1 1.16 mg/dL (0.52-1.04); Potassium 4.4 mmol/L (3.5-5.1)
[2017-10-20] MEDS ORDERED: TYLENOL EXTRA STRENGTH 500 MG PO STA (22:36)
[2017-10-20] MEDS ORDERED: TYLENOL EXTRA STRENGTH 500 MG ONE (22:41)
[2017-10-20 22:44] LABS: Appearance CLEAR (CLEAR); Specific Gravity 1.025 (1.005-1.025)
[2017-10-20 22:45] LABS: Bilirubin NEGATIVE (NEGATIVE); Glucose NEGATIVE (NEGATIVE); Ketones NEGATIVE (NEGATIVE); Leukocyte Esterase NEGATIVE (NEGATIVE); Nitrite NEGATIVE (NEGATIVE); Protein,Urine Dip TRACE (Negative); Urobilinogen NORMAL mg/dL (0-1)
[2017-10-20 22:46] LABS: Bacteria RARE /HPF (NEGATIVE); Epithelial Cells RARE /HPF (FEW); RBC 0-2 /HPF (0-2); WBC 0-2 /HPF (0-5)
[2017-10-20 23:09] VITALS: O2SAT 95
[2017-10-20 23:39] VITALS: BP 206/93; PULSE 65
--- NOTE | 2017-10-21 08:35 | XRAY ---
Indication: Headache. No known injury. Multiple contiguous axial images obtained through the head without contrast. Comparison: July 20, 2017. Stable age-appropriate global atrophy and moderate periventricular degenerative micro-ischemia bilaterally. Again no acute intracranial hemorrhage, abnormal extra-axial fluid collection, or mass effect. Fourth ventricle is midline without hydrocephalus. Bony calvarium intact. Visualized paranasal sinuses and mastoid air cells are clear. Impression: Stable nonacute senile brain. Comment: Preliminary interpretation was made by [facility]. No discrepancy. CT DI 71.08
== END 2017-10-20 23:39 | disposition home or self-care (01) ==
LOC: ED 21:20
DX: R51 Headache (principal); G30.9 Alzheimer's disease, unspecified; F02.80 Dementia in other diseases classified elsewhere, unspecified severity, without behavioral disturbance, psychotic disturbance, mood disturbance, and anxiety; Z79.899 Other long term (current) drug therapy
CPT/HCPCS: 36000; 36415; 70450; 80048; 81000; 85025; 87086; 96374; 99284; J2060; A9270-GY

== ENCOUNTER 2017-11-11 17:49 | Emergency (ER) | payer MEDICARE, BC ==
--- NOTE | 2017-11-11 19:57 | ERPHSYRPT ---
- History of Present Illness Time Seen by Provider: 11/11/17 19:00 Source: patient, family Exam Limitations: other (pt has dementia) Patient Subjective Stated Complaint: Pt daughter in law states "She has dementia and this morning we were at her house and she was complaining of a headache. normally she walks without any difficulty and this morning she was having a hard time walking and when she did walk, she started to lean to the left." Triage Nursing Assessment: Pt alert and oriented X 3, skin pwd. Pt cannot stand on her own, pt is leaning to the left even when sitting down. Pt in no respiratory distress, cinn stroke scale is a negative, pt has clear speech in full sentences. Physician History: 87 y/o white female with h/o htn presents greater than 12 hours since pt awoke this am with leaning to the left when ambulating, c/o headache and "problem with my eye. sx have resolved per pt. pt has a surgery tomorrow to remove skin cancer. pt has no complaints upon arrival. family states every time pt comes to hospital ER her bp rises significantly and as soon as pt is home, it goes back to normal Time of Onset/Last Time Seen Normal: last pm Timing/Duration: today, resolved prior to arrival, sudden, improved Severity: mild (pt had c/o headache, left eye problems and seen leaning to the left when ambulating.) Character of Deficits: new weakness, RLE Baseline/Normal Cognition: alert but confused Current Cognition: alert but confused Baseline Gait: walks only w/assistance Associated Symptoms: confusion, weakness, trouble walking Allergies/Adverse Reactions: No Known Drug Allergies Allergy (Verified 10/20/17 21:41) Hx Tetanus, Diphtheria Vaccination/Date Given: No Hx Influenza Vaccination/Date Given: No Hx Pneumococcal Vaccination/Date Given: No Immunizations Up to Date: Yes - Review of Systems Constitutional: Weakness Eyes: Other (left eye pain that has resolved) Ears, Nose, & Throat: No Symptoms Respiratory: No Symptoms, No Cough, No Dyspnea, No Stridor, No Wheezing Cardiac: No Symptoms, No Chest Pain, No Palpitations, No Syncope Abdominal/Gastrointestinal: No Symptoms, No Abdominal Pain, No Nausea, No Vomiting, No Diarrhea Genitourinary Symptoms: No Symptoms, No Dysuria, No Frequency, No Incontinence, No Urinary Retention Musculoskeletal: Other (leaning to the left when ambulating) - Past Medical History Pertinent Past Medical History: Yes Neurological History: Alzheimer's Disease ENT History: No Pertinent History Cardiac History: No Pertinent History Respiratory History: No Pertinent History Endocrine Medical History: No Pertinent History Musculoskeletal History: No Pertinent History GI Medical History: No Pertinent History History: No Pertinent History Psycho-Social History: No Pertinent History Female Reproductive Disorders: No Pertinent History Other Medical History: daughter in law states no medical history, no surgical history, no medication, no allergies, has 24 hour accompaniment in her own home - Past Surgical History Past Surgical History: No Neuro Surgical History: No Pertinent History Cardiac: No Pertinent History Respiratory: No Pertinent History Gastrointestinal: No Pertinent History Genitourinary: No Pertinent History Musculoskeletal: No Pertinent History Female Surgical History: No Pertinent History Other Surgical History: JOINT ASPIRATION OF THE KNEE - Social History Smoking Status: Never smoker Exposure to second hand smoke: No Drug Use: none Patient Lives Alone: No - Female History Hx Now: No - Nursing Vital Signs Nursing Vital Signs: Initial Vital Signs Temperature 98.8 F 11/11/17 17:59 Pulse Rate 70 11/11/17 17:59 Respiratory Rate 16 11/11/17 17:59 Blood Pressure 206/92 11/11/17 17:59 O2 Sat by Pulse Oximetry 98 11/11/17 17:59 Pain Scale Pain Intensity 0 - [place] Coma Scale Best Eye Response (Chris): (4) open spontaneously Best Verbal Response ([place]idan): (4) confused conversation Best Motor Response ([place]): (6) obeys commands Chris Total: 14 - Physical Exam General Appearance: no apparent distress, alert, No anxiety Eye Exam: bilateral eye: normal inspection, PERRL, EOMI Ears, Nose, Throat Exam: normal ENT inspection Neck Exam: normal inspection, No non-tender, No supple, No full range of motion Respiratory: normal breath sounds, lungs clear, No chest tenderness, No respiratory distress Cardiovascular: regular rate/rhythm, normal heart sounds, normal peripheral pulses Gastrointestinal: soft, normal bowel sounds, No tenderness, No distention Pelvic Exam: not done Rectal Exam: deferred Back Exam: normal inspection Extremity Exam: normal inspection, normal range of motion, pelvis stable Mental Status: alert, cooperative, 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 Exam: normal hearing, normal speech, PERRL, tongue midline, No abnormal speech, No facial droop, No facial weakness, No tongue deviation to L Coordination/Gait: abnormal gait (leans to left) Motor/Sensory: weak motor strength RLE Skin Exam: normal color SpO2 Interpretation: normal SpO2: 98 Oxygen Delivery: Room Air - Course Nursing assessment & vital signs reviewed: Yes EKG Interpreted by Me: RATE, Sinus Rhythm, NORMAL AXIS, NORMAL INTERVALS, NORMAL QRS, Non-specific ST Changes (comparison ekg 07/20/17 no sig changes) Ordered Tests: Active Orders 24 hr Category Date Time Status EKG-ER Only STAT Care 11/11/17 19:33 Active HEAD WITHOUT CONTRAST [CT] Stat Exams 11/11/17 18:45 Taken CBC Stat Lab 11/11/17 19:55 Completed CMP Stat Lab 11/11/17 19:55 Completed UA Stat Lab 11/11/17 19:55 Completed Medication Summary Discontinued Medications Generic Name Dose Route Start Last Admin Trade Name Freq PRN Reason Stop Dose Admin Clonidine 0.1 mg 11/11/17 21:02 Catapres 0.1 Mg PO 11/11/17 21:03 STAT ONE Lab/Rad Data: Laboratory Result Diagrams 11/11/17 19:55 11/11/17 19:55 Laboratory Results 11/11/17 11/11/17 11/11/17 Range/Units 19:55 19:55 19:55 WBC 6.2 (4.0-10.5) K/mm3 RBC 4.69 (4.1-5.4) M/mm3 Hgb 13.5 (12.0-16.0) gm/dl Hct 39.7 (35-47) % MCV 84.6 (78-100) fl MCH 28.8 (26-32) pg MCHC 34.0 (32-36) g/dl RDW 14.7 H (11.5-14.0) % Plt Count 265 (150-450) K/mm3 MPV 8.7 (6-9.5) fl Sodium 142 (137-145) mmol/L Potassium 4.9 (3.5-5.1) mmol/L Chloride 107 (98-107) mmol/L Carbon Dioxide 26 (22-30) mmol/L Anion Gap 14.2 (5-15) MEQ/L BUN 18 H (7-17) mg/dL Creatinine 0.98 (0.52-1.04) mg/dL Estimated GFR 56.9 ML/MIN Glucose 110 H (74-106) mg/dL Calcium 9.7 (8.4-10.2) mg/dL Total Bilirubin 0.40 (0.2-1.3) mg/dL AST 15 (14-36) U/L ALT 14 (0-35) U/L Alkaline Phosphatase 87 (38-126) U/L Serum Total Protein 6.9 (6.3-8.2) g/dL Albumin 4.1 (3.5-5.0) g/dL Ur Collection Type CLEAN CATCH Urine Color YELLOW (YELLOW) Urine Appearance CLEAR (CLEAR) Urine pH 5.0 (5-6) Ur Specific [place] 1.020 (1.005-1.025) Urine Protein NEGATIVE (Negative) Urine Ketones NEGATIVE (NEGATIVE) Urine Blood NEGATIVE (0-5) Rafy/ul Urine Nitrite NEGATIVE (NEGATIVE) Urine Bilirubin NEGATIVE (NEGATIVE) Urine Urobilinogen NORMAL (0-1) mg/dL Ur Leukocyte Esterase NEGATIVE (NEGATIVE) Urine Glucose NEGATIVE (NEGATIVE) mg/dL Specimen Received 11/11/171999 - Progress Progress: improved, re-examined Progress Note: 11/11/17 21:[address] MARTIN WHO IS COVERING FOR DR. CAMACHO. NO NEED FOR ADMISSION, I AGREE. PT HAS 11/[address]. MARTIN ADD A DAILY ASA AND CONTINUE LISINOPRIL. FOLLOW UP WITH DR. CAMACHO ON FRIDAY THIS WEEK. FAMILY AND PT AGREE WITH THIS PLAN Discussed with : Yoni Counseled pt/family regarding: lab results, diagnosis, need for follow-up, rad results - Departure Time of Disposition: 21:20 Departure Disposition: Home Clinical Impression: Hypertension, TIA (transient ischemic attack), Dementia Condition: Stable Critical Care Time: Yes Critical Care Time(excluding separately billable procedures): 30-74 minutes Referrals: MICHAEL CAMACHO [Primary Care Provider] -
[2017-11-11 20:31] LABS: Appearance CLEAR (CLEAR); Bilirubin NEGATIVE (NEGATIVE); Blood NEGATIVE Ery/ul (0-5); Glucose NEGATIVE (NEGATIVE); Ketones NEGATIVE (NEGATIVE); Leukocyte Esterase NEGATIVE (NEGATIVE); Nitrite NEGATIVE (NEGATIVE); Protein,Urine Dip NEGATIVE (Negative); Urobilinogen NORMAL mg/dL (0-1)
[2017-11-11 20:39] LABS: ALBUMIN 4.1 g/dL (3.5-5.0); ANION GAP 14.2 MEQ/L (5-15); BILIRUBIN,TOTAL 0.4 mg/dL (0.2-1.3); Calcium 9.7 mg/dL (8.4-10.2); Creatinine 1 0.98 mg/dL (0.52-1.04); Hematocrit 39.7 % (35-47); Hemoglobin 13.5 gm/dl (12.0-16.0); Mean Cell Volume 84.6 fl (78-100); Mean Corpuscular Hemoglobin 28.8 pg (26-32); Mean Platelet Volume 8.7 fl (6-9.5); Platelet Count 265 K/mm3 (150-450); Potassium 4.9 mmol/L (3.5-5.1); Red Blood Count 4.69 M/mm3 (4.1-5.4); Red Cell Distribution Width 14.7 % (11.5-14.0); Total Protein 6.9 g/dL (6.3-8.2); White Blood Count 6.2 K/mm3 (4.0-10.5)
[2017-11-11 20:49] VITALS: PULSE 66
[2017-11-11] MEDS ORDERED: BABY ASPIRIN 81 MG CHEW ONE (21:40)
[2017-11-11] MEDS: BABY ASPIRIN 81 MG CHEW PO ONE (21:41)
[2017-11-11] MEDS: Catapres 0.1 MG PO ONE (21:41)
[2017-11-11] MEDS ORDERED: Catapres 0.1 MG ONE (21:41)
[2017-11-11 22:18] VITALS: BP 187/93; O2SAT 95
--- NOTE | 2017-11-12 08:34 | XRAY ---
Indication: Difficulty walking. Balance issues. Hallucinations. Multiple contiguous axial images obtained through the head without contrast. Comparison: October 20, 2017. Stable age-appropriate global atrophy and moderate periventricular degenerative micro-ischemia bilaterally. No acute intracranial hemorrhage, abnormal extra-axial fluid collection, or mass effect. Fourth ventricle is midline without hydrocephalus. Bony calvarium intact. Visualized paranasal sinuses and mastoid air cells are clear. Impression: Stable nonacute senile brain. CT DI 70.00
== END 2017-11-11 22:20 | disposition home or self-care (01) ==
LOC: ED 17:49
DX: I10 Essential (primary) hypertension (principal); G45.9 Transient cerebral ischemic attack, unspecified; F03.90 Unspecified dementia, unspecified severity, without behavioral disturbance, psychotic disturbance, mood disturbance, and anxiety; G30.8 Other Alzheimer's disease; F02.80 Dementia in other diseases classified elsewhere, unspecified severity, without behavioral disturbance, psychotic disturbance, mood disturbance, and anxiety; R51 Headache
CPT/HCPCS: 36415; 70450; 80053; 81002; 85027; 93005; 99284; A9270-GY

== ENCOUNTER 2017-12-27 14:20 | Emergency (ER) | payer MEDICARE, BC ==
[2017-12-27] MEDS ORDERED: BACIGUENT PACKET TP ONE (15:01)
[2017-12-27] MEDS ORDERED: BACIGUENT PACKET ONE (15:01)
--- NOTE | 2017-12-27 15:07 | ERPHSYRPT ---
- History of Present Illness Time Seen by Provider: 12/27/17 14:57 Source: patient, family Patient Subjective Stated Complaint: Wound check to left upper forehead Triage Nursing Assessment: Patient brought back via w/c per family and transferred to bed with assist of 1. Patient had skin cancer removed at [facility] Friday12-23-17. Patient had dissolvable stitches and had been putting vaseline to site. Patient lives alone and receives 24 hour care and family was called by staff stating patient had been scratching at area to left upper forehead causing an open area. Area noted to be slightly red and warm. Physician History: This is a 87-year-old white female who is brought by her family with complaints that the patient was scratching at a skin cancer removal site they state that she was having bleeding in the area earlier today. According the family patient had a skin cancer removed on the left temp oral frontal region on December 23, 2017 dissolvable sutures were placed. Patient apparently began scratching on the site and this morning was noted to have blood to the area some erythema in the area. Past medical history is positive for Alzheimer's. Past surgical history includes joint aspiration of the knee skin cancer removed left lateral forehead. . Timing/Duration: today Severity: mild Modifying Factors: Improves With: nothing Associated Symptoms: denies symptoms Allergies/Adverse Reactions: No Known Drug Allergies Allergy (Verified 12/27/17 14:53) Home Medications: Aspirin 81 gm Chew [Baby Aspirin 81 mg Chew] 1 tab PO DAILY 12/27/17 [ History] Sertraline HCl 1 tab PO HS 12/27/17 [History] Hx Tetanus, Diphtheria Vaccination/Date Given: No Hx Influenza Vaccination/Date Given: No Hx Pneumococcal Vaccination/Date Given: No Immunizations Up to Date: Yes - Review of Systems Constitutional: No Fever, No Chills Eyes: No Symptoms Ears, Nose, & Throat: No Symptoms Respiratory: No Cough, No Dyspnea Cardiac: No Chest Pain, No Edema, No Syncope Abdominal/Gastrointestinal: No Abdominal Pain, No Nausea, No Vomiting, No Diarrhea Genitourinary Symptoms: No Dysuria Musculoskeletal: No Back Pain, No Neck Pain Skin: Other (patient's scratching at skin cancer recent removal site apparently bleeding this morning.) Neurological: No Dizziness, No Focal Weakness, No Sensory Changes Psychological: No Symptoms Endocrine: No Symptoms All Other Systems: Reviewed and Negative - Past Medical History Pertinent Past Medical History: Yes Neurological History: Alzheimer's Disease ENT History: No Pertinent History Cardiac History: No Pertinent History Respiratory History: No Pertinent History Endocrine Medical History: No Pertinent History Musculoskeletal History: No Pertinent History GI Medical History: No Pertinent History History: No Pertinent History Psycho-Social History: No Pertinent History Female Reproductive Disorders: No Pertinent History Other Medical History: daughter in law states no medical history, no surgical history, no medication, no allergies, has 24 hour accompaniment in her own home - Past Surgical History Past Surgical History: No Neuro Surgical History: No Pertinent History Cardiac: No Pertinent History Respiratory: No Pertinent History Gastrointestinal: No Pertinent History Genitourinary: No Pertinent History Musculoskeletal: No Pertinent History Female Surgical History: No Pertinent History Other Surgical History: JOINT ASPIRATION OF THE KNEE - Social History Smoking Status: Never smoker Exposure to second hand smoke: No Drug Use: none Patient Lives Alone: Yes (Has 24 hour care) - Female History Hx Last Menstrual Period: menopausal Hx Now: No - Nursing Vital Signs Nursing Vital Signs: Initial Vital Signs Temperature 98.0 F 12/27/17 14:45 Pulse Rate 66 12/27/17 14:45 Respiratory Rate 18 12/27/17 14:45 Blood Pressure 216/97 12/27/17 14:45 O2 Sat by Pulse Oximetry 95 12/27/17 14:45 Pain Scale Pain Intensity 0 - Physical Exam General Appearance: no apparent distress, alert, other (patient with sutured incision left frontal temporal region several smaller abrasions near the incision, slight erythema to the area area is not hot incision appears to be closed) Eye Exam: PERRL/EOMI, eyes nml inspection Ears, Nose, Throat Exam: normal ENT inspection, TMs normal, pharynx normal, moist mucous membranes Neck Exam: normal inspection, non-tender, supple, full range of motion Respiratory Exam: normal breath sounds, lungs clear, No respiratory distress Cardiovascular Exam: regular rate/rhythm, normal heart sounds, normal peripheral pulses Gastrointestinal/Abdomen Exam: soft, normal bowel sounds, No tenderness, No mass Back Exam: normal inspection, normal range of motion, No CVA tenderness, No vertebral tenderness Extremity Exam: normal inspection, normal range of motion, pelvis stable Neurologic Exam: alert, oriented x 3, cooperative, 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, normal mood/affect, nml cerebellar function, nml station & gait, sensation nml, No motor deficits Skin Exam: other (healing incision left frontal temporal area approximately 2.5 cm wound edges well approximated several abrasions near the incision no drainage area is not hot very slight erythema to area) SpO2 Interpretation: normal (95% ) SpO2: 95 Oxygen Delivery: Room Air - Course Nursing assessment & vital signs reviewed: Yes Ordered Tests: Active Orders 24 hr Category Date Time Status Wound Care STAT Care 12/27/17 15:01 Active Medication Summary Discontinued Medications Generic Name Dose Route Start Last Admin Trade Name Jael PRN Reason Stop Dose Admin Bacitracin Zinc 0.9 gm 12/27/17 15:01 12/27/17 15:02 Baciguent Packet TP 12/27/17 15:02 0.9 gm STAT ONE Administration Bacitracin Zinc Confirm 12/27/17 15:01 Baciguent Packet Administered 12/27/17 15:02 Dose 1 gm .ROUTE .STK-MED ONE Clonidine 0.1 mg 12/27/17 15:58 12/27/17 16:04 Catapres 0.1 Mg PO 12/27/17 15:59 0.1 mg STAT ONE Administration Clonidine Confirm 12/27/17 16:02 Catapres 0.1 Mg Administered 12/27/17 16:03 Dose 0.1 mg .ROUTE .STK-MED ONE - Progress Progress: improved Progress Note: 12/27/17 15:06 This is a 87-year-old white female status post removal of skin cancer left frontal temporal areas on December 23, 2017. Patient had the area sutured with absorbable sutures family states the patient has been itching the area. Patient with some very small superficial abrasions near the incision site the incision site appears to be healing quite well and possibly could be healed. There is a very slight amount of erythema in the area is not hot there is no drainage. Will have nurse clean the area and apply bacitracin. 12/27/17 16:27 Patient's family states that the patient has white coat syndrome, her blood pressure has been elevated. Patient has been given clonidine 0.1 mg orally. 12/27/17 16:49 patient's blood pressure is improved Will release. - Departure Time of Disposition: 15:07 Departure Disposition: Home Clinical Impression: abrasion to suture site left forehead Condition: Fair Critical Care Time: No Referrals: MICHAEL CAMACHO [Primary Care Provider] - Additional Instructions: Return home. Bacitracin to area until healed. Follow-up with your family doctor or return if problems. Return for acute distress or for severe symptoms. your blood pressure was elevated be sure to monitor your blood pressures at home , follow up with your family doctor.
[2017-12-27] MEDS ORDERED: Catapres 0.1 MG PO ONE (15:58)
[2017-12-27] MEDS ORDERED: Catapres 0.1 MG ONE (16:02)
[2017-12-27 16:48] VITALS: BP 184/84; PULSE 61
[2017-12-27 16:50] VITALS: O2SAT 95
== END 2017-12-27 17:02 | disposition home or self-care (01) ==
LOC: ED 14:20
DX: S00.81XA Abrasion of other part of head, initial encounter (principal); Z98.890 Other specified postprocedural states; Z79.82 Long term (current) use of aspirin; Z79.899 Other long term (current) drug therapy
CPT/HCPCS: 99283; A9270-GY

== ENCOUNTER 2018-01-23 18:04 | Observation (INO) | payer MEDICARE, BC ==
[2018-01-23 19:32] LABS: Hematocrit 21.4 % (35-47); Mean Cell Volume 85.9 fl (78-100); Mean Corpuscular Hemoglobin 27.3 pg (26-32); Mean Corpuscular Hgb Concent. 31.8 g/dl (32-36); Mean Platelet Volume 8.3 fl (6-9.5); Platelet Count 363 K/mm3 (150-450); Red Blood Count 2.49 M/mm3 (4.1-5.4); Red Cell Distribution Width 13.5 % (11.5-14.0); White Blood Count 6.3 K/mm3 (4.0-10.5)
[2018-01-23 19:35] LABS: Hemoglobin 6.8 gm/dl (12.0-16.0)
[2018-01-23] MEDS ORDERED: Sodium Chloride 0.9% 500 ML 500 ML IV SCH (20:30)
--- NOTE | 2018-01-23 20:53 | XRAY ---
Indication: Anemia and confusion. Multiple contiguous axial images obtained through the head without contrast. Comparison: November 11, 2017. Stable age-appropriate global atrophy and moderate periventricular degenerative micro-ischemia bilaterally. Also stable bilateral parasellar internal carotid artery calcifications. No acute intracranial hemorrhage, abnormal extra-axial fluid collection, or mass effect. Fourth ventricle is midline without hydrocephalus. Bony calvarium intact. Visualized paranasal sinuses and mastoid air cells are clear. Impression: Stable nonacute senile brain. CTDI 66.12
[2018-01-23 21:26] LABS: ABO TYPING B; RH TYPING NEGATIVE
[2018-01-23] MEDS ORDERED: Lactated Ringers 1,000 ML IV SCH (21:30)
[2018-01-23] MEDS ORDERED: PROTONIX 40 MG IV IV ONE (21:31)
[2018-01-23] MEDS ORDERED: PROTONIX IV SCH (21:45)
[2018-01-23] MEDS ORDERED: SODIUM CHLORIDE 0.9% IV SCH (21:45)
[2018-01-23] MEDS ORDERED: ROCEPHIN 1 Gm-D5w 50 ml Bag** 1 G/50 ML IVPB IV SCH (22:00)
[2018-01-23] MEDS: PROTONIX IV SCH (22:26)
[2018-01-23] MEDS: SODIUM CHLORIDE 0.9% IV SCH (22:26)
[2018-01-23] MEDS ORDERED: ZOLOFT 50 MG TABLET PO SCH (23:35)
[2018-01-23] MEDS ORDERED: Ativan 0.5 MG PO ONE (23:45)
[2018-01-24] MEDS: PROTONIX IV SCH (03:21)
[2018-01-24] MEDS: SODIUM CHLORIDE 0.9% IV SCH (03:21)
[2018-01-24 04:45] LABS: Antibody Screen POSITIVE (NEGATIVE)
[2018-01-24] MEDS ORDERED: PROTONIX 40 MG IV*** 80 MG in Sodium Chloride 0.9% 500 ML 500 ML IV SCH (08:00)
[2018-01-24] MEDS ORDERED: ZOLOFT 50 MG TABLET PO SCH (10:00)
[2018-01-24] MEDS ORDERED: APRESOLINE 20 MG/ML INJ IV ONE (10:49)
[2018-01-24 11:29] LABS: Hematocrit 27.7 % (35-47); Hemoglobin 9.7 gm/dl (12.0-16.0)
[2018-01-24 12:12] VITALS: BP 175/79; PULSE 79; O2SAT 95
--- NOTE | 2018-01-24 13:15 | PCM.SSS ---
History of Present Illness - Chief Complaint Chief Complaint: Anemia, confusion History of Present Illness: is a 87 year old female of Dr. Fidel Camacho with dementia who was admitted directed last night for blood transfusion with Hgb 6.9. She was seen in the office by Dr. Camacho yesterday with increased fatigue for several days, being pale, and not making sense when speaking. In the past similar sx indicated UTI so she was sent for labs and UA and returned home. She did submit a UA through OP lab, which was negative. She returned last night for 2 units of blood; I did examine her last night and speak with family, but she was not yet admitted so I did not submit an H&P through the EMR. She was denying any pain last night. Apparently her home nurse had noted a black stool 4d prior to admission. Medications & Allergies Home Medications: Home Medication List Sertraline HCl 1 tab PO HS 12/27/17 [History Confirmed 01/23/18] hydroCHLOROthiazide [Hydrochlorothiazide] 12.5 mg PO DAILY 01/23/18 [History Confirmed 01/23/18] Lisinopril 5 mg PO DAILY 01/24/18 [History Confirmed 01/24/18] Omeprazole 20 MG [Prilosec 20 mg] 20 mg PO DAILY #44 capsule. 01/24/18 [Rx] Allergies/Adverse Reactions: Allergies Allergy/AdvReac Type Severity Reaction Status Date / Time No Known Drug Allergies Allergy Verified 12/27/17 14:53 - Past Medical History Past Medical History: Yes Neurological History: Dementia, Stroke ENT History: No Pertinent History Cardiac History: No Pertinent History Respiratory History: No Pertinent History Endocrine Medical History: No Pertinent History Musculoskelatal History: No Pertinent History GI Medical History: No Pertinent History History: No Pertinent History Pyscho-Social History: Anxiety Reproductive Disorders: No Pertinent History 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 - Female History Are you now?: No - Past Surgical History Past Surgical History: Yes Neuro Surgical History: No Pertinent History Cardiac History: No Pertinent History Respiratory Surgery: No Pertinent History GI Surgical History: Appendectomy Genitourinary Surgical Hx: No Pertinent History Musculskeletal Surgical Hx: No Pertinent History Female Surgical History: No Pertinent History Other Surgical History: had uterus tied up - Social History Smoking Status: Never smoker Exposure to second hand smoke: No Alcohol: None Drug Use: none - Physical Exam Vital Signs: Vital Signs - 24 hr Temp Pulse Resp BP Pulse Ox 01/24/18 12:00 97.8 F 79 18 175/79 95 01/24/18 10:50 97.9 F 65 191/87 01/24/18 07:58 97.6 F 67 16 163/73 97 01/24/18 04:00 97.6 F 65 20 145/66 95 01/24/18 00:00 97.7 F 95 H 17 165/78 97 01/23/18 20:47 98.1 F 70 16 163/75 96 01/23/18 19:02 98.1 F 70 16 163/75 96 General Appearance: mild distress (crying initially, then is calm. denies pain. cooperative.) Neurologic Exam: alert, disoriented Respiratory Exam: normal breath sounds, lungs clear, No crackles/rales, No rhonchi, No wheezing Cardiovascular Exam: regular rate/rhythm, normal heart sounds, No murmur Gastrointestinal/Abdomen Exam: soft, No normal bowel sounds (hyperactive), No tenderness, No distention, No mass, No guarding, No rebound Extremity Exam: normal inspection, No pedal edema, No swelling Skin Exam: normal color, warm, dry, No rash Results - Labs Lab/Micro Results: Lab Results-Last 24 Hours 01/23/18 01/23/18 01/23/18 Range/Units 19:20 19:20 19:20 WBC 6.3 (4.0-10.5) K/mm3 RBC 2.49 L (4.1-5.4) M/mm3 Hgb 6.8 L* (12.0-16.0) gm/dl Hct 21.4 L (35-47) % MCV 85.9 (78-100) fl MCH 27.3 (26-32) pg MCHC 31.8 L (32-36) g/dl RDW 13.5 (11.5-14.0) % Plt Count 363 (150-450) K/mm3 MPV 8.3 (6-9.5) fl Stool Occult Blood (Negative) ABO Group B Rh Factor NEGATIVE Antibody Screen POSITIVE (NEGATIVE) Crossmatch COMPATIBLE COMPATIBLE (COMPATIBLE) 01/24/18 01/24/18 Range/Units 05:49 11:24 WBC (4.0-10.5) K/mm3 RBC (4.1-5.4) M/mm3 Hgb 9.7 L (12.0-16.0) gm/dl Hct 27.7 L (35-47) % MCV (78-100) fl MCH (26-32) pg MCHC (32-36) g/dl RDW (11.5-14.0) % Plt Count (150-450) K/mm3 MPV (6-9.5) fl Stool Occult Blood POSITIVE (Negative) ABO Group Rh Factor Antibody Screen (NEGATIVE) Crossmatch (COMPATIBLE) - Radiology Impressions Radiology Exams & Impressions: Radiology Procedures Category Date Time Status HEAD WITHOUT CONTRAST [CT] Routine Exams 01/23/18 19:15 Completed Assessment/Plan (1) Anemia Current Visit: Yes Status: Acute Qualifiers: Anemia type: iron deficiency Iron deficiency anemia type: unspecified iron deficiency Qualified Code(s): D50.9 - Iron deficiency anemia, unspecified Assessment & Plan: GI bleed - not currently with melena or hematochezia, but did have hemoccult + stool. Received 2 units PRBC with post hgb of 9.7. Home and family to monitor ; check H&H as needed. recheck hgb on friday or Friday outpatient. F/u with Dr. Camacho. Code(s): D64.9 - ANEMIA, UNSPECIFIED (2) GI bleed Current Visit: Yes Status: Acute Qualifiers: GI bleed type/associated pathology: unspecified gastrointestinal hemorrhage type Qualified Code(s): K92.2 - Gastrointestinal hemorrhage, unspecified Code(s): K92.2 - GASTROINTESTINAL HEMORRHAGE, UNSPECIFIED (3) Vascular dementia with behavior disturbance Current Visit: No Status: Chronic Code(s): F01.51 - VASCULAR DEMENTIA WITH BEHAVIORAL DISTURBANCE Hospital Summary - Hospital Course Hospital Course: is a 87 year old female of Dr. Fidel Camacho with dementia who was admitted directed last night for blood transfusion with Hgb 6.9. She was seen in the office by Dr. Camacho yesterday with increased fatigue for several days, being pale, and not making sense when speaking. In the past similar sx indicated UTI so she was sent for labs and UA and returned home. She did submit a UA through OP lab, which was negative. She returned last night for 2 units of blood; I did examine her last night and speak with family, but she was not yet admitted so I did not submit an H&P through the EMR. She was denying any pain last night. Apparently her home nurse had noted a black stool 4d prior to admission. Family notes she was sitting up making jokes with them this morning. Hgb is 9.7. She was then taken to the bathroom and the staff moved her too quickly and her head was "spinning" and now she says, "I just want to " but denies any pain or current head spinning. I discussed with family that her stool hemoccult was positive here but she would not be a good candidate for any procedures and they agree; would watch the hgb and transfuse as necessary. Also , I did offer that she could stay another day and recheck hgb in the morning but they opt to take her home tonight. After her second unit was transfused, she did have an elevated bp to 190s systolic and was given hydralazine 10mg IV x 1. Her lisinopril 10mg has been held so I will resume that when she is discharged to home. - Vitals & Intake/Output Vital Signs: Vital Signs Temperature 97.8 F 01/24/18 12:00 Pulse Rate 79 01/24/18 12:00 Respiratory Rate 18 01/24/18 12:00 Blood Pressure 175/79 01/24/18 12:00 O2 Sat by Pulse Oximetry 95 01/24/18 12:00 Intake & Output: Intake & Output 01/22/18 01/23/18 01/24/18 01/25/18 11:59 11:59 11:59 11:59 Intake Total 889 0 Output Total 0 700 Balance 889 -700 Weight 56.8 kg - Lab Result Diagrams: 01/24/18 11:24 Lab Results-Last 24 Hrs: Lab Results-Last 24 Hours 01/23/18 01/23/18 01/23/18 Range/Units 19:20 19:20 19:20 WBC 6.3 (4.0-10.5) K/mm3 RBC 2.49 L (4.1-5.4) M/mm3 Hgb 6.8 L* (12.0-16.0) gm/dl Hct 21.4 L (35-47) % MCV 85.9 (78-100) fl MCH 27.3 (26-32) pg MCHC 31.8 L (32-36) g/dl RDW 13.5 (11.5-14.0) % Plt Count 363 (150-450) K/mm3 MPV 8.3 (6-9.5) fl Stool Occult Blood (Negative) ABO Group B Rh Factor NEGATIVE Antibody Screen POSITIVE (NEGATIVE) Crossmatch COMPATIBLE COMPATIBLE (COMPATIBLE) 01/24/18 01/24/18 Range/Units 05:49 11:24 WBC (4.0-10.5) K/mm3 RBC (4.1-5.4) M/mm3 Hgb 9.7 L (12.0-16.0) gm/dl Hct 27.7 L (35-47) % MCV (78-100) fl MCH (26-32) pg MCHC (32-36) g/dl RDW (11.5-14.0) % Plt Count (150-450) K/mm3 MPV (6-9.5) fl Stool Occult Blood POSITIVE (Negative) ABO Group Rh Factor Antibody Screen (NEGATIVE) Crossmatch (COMPATIBLE) - Radiology Exams Ordered Rad Exams-Entire Visit: Radiology Procedures Category Date Time Status HEAD WITHOUT CONTRAST [CT] Routine Exams 01/23/18 19:15 Completed - Procedures and Test Procedures and Tests throughout Hospitalization: Therapy Orders & Screens 01/23/18 21:22 OT Screen per Nursing Assess Comment: Protocol Order Physician Instructions: Greater than 3 points order OT Admission Screening Reason For Exam: Triggered on Admission Diagnosis: Anemia, confusion Open Wound/Cellutlitis/Pressure Ulcers: No Acute Fx/ORIF/Change in wt bearing status: No Severe MUSCULOSKELETAL pain: No ADL Dysfunction: Yes Acute CVA w/Hemiparesis/Hemiplegia: No Decreased Functional Mobility/Strength: Yes Sprain/Strain: No Acute Post-op Mobility Dysfunction: No Total Points: 4 PT Screen per Nursing Assess Comment: Protocol Order Physician Instructions: Greater than 3 points order PT Admission Screenin Reason For Exam: Triggered on Admission Diagnosis: Anemia, confusion Open Wound/Cellutlitis/Pressure Ulcers: No Acute Fx/ORIF/Change in wt bearing status: No Severe MUSCULOSKELETAL pain: No ADL Dysfunction: Yes Acute CVA w/Hemiparesis/Hemiplegia: No Decreased Functional Mobility/Strength: Yes Sprain/Strain: No Acute Post-op Mobility Dysfunction: No Total Points: 4 - Discharge Disposition: Home, Self-Care Condition: Stable Prescriptions: New Omeprazole 20 MG [Prilosec 20 mg] 20 mg PO DAILY #44 capsule.dr Continue Sertraline HCl 1 tab PO HS hydroCHLOROthiazide [Hydrochlorothiazide] 12.5 mg PO DAILY Lisinopril 5 mg PO DAILY Discontinued Aspirin 81 gm Chew [Baby Aspirin 81 mg Chew] 1 tab PO DAILY Follow up with: MICHAEL CAMACHO [Primary Care Provider] - 01/30/18 1:30 pm
[2018-01-24] MEDS ORDERED: TYLENOL EXTRA STRENGTH 500 MG PO PRN (13:27)
[2018-01-24] MEDS ORDERED: ROCEPHIN 1 Gm-D5w 50 ml Bag** 1 G/50 ML IVPB IV SCH (22:00)
[2018-01-28 11:08] LABS: AB ID Interp SEE SEPARATE REPORT
== END 2018-01-24 14:10 | disposition home or self-care (01) ==
LOC: MED SURG 18:52
PROVIDERS: ADMIT Family Medicine; ATTEND Family Medicine
DX: D64.9 Anemia, unspecified (principal); K92.2 Gastrointestinal hemorrhage, unspecified; F01.51 Vascular dementia, unspecified severity, with behavioral disturbance; Z79.899 Other long term (current) drug therapy; Z23 Encounter for immunization
CPT/HCPCS: 36415; 70450; 80053; 81001; 82272; 85014; 85018; 85025; 85027; 86850; 86870; 86900; 86901; 86922; 87086; 93268; P9016; 36430; 90662; G0008; J0360; J0696; A9270-GY; G0378

== ENCOUNTER 2018-03-29 14:14 | Emergency (ER) | payer MEDICARE, BC ==
--- NOTE | 2018-03-29 14:49 | ERPHSYRPT ---
- History of Present Illness Time Seen by Provider: 03/29/18 14:37 Source: patient, family Exam Limitations: other (patient with history of ALZHEIMERS) Patient Subjective Stated Complaint: Pt states "I have this horrible cough. I was taking cough medicine for it that Dr. Camacho gave me but I am done with that and it just seems to be getting worse." Triage Nursing Assessment: Pt alert and oriented X 3, skin pwd. Pt in no apparent respiratory distress, able to speak in clear full sentences. Pt has intermittant non productive cough. Physician History: Patient arrives with complaint of cough for 11 days family states low-grade fever family states that patient had been placed on a cough syrup by family physician. she has not been otherwise ill he denies any stress is not short of breath she has no chest pain no belly pain no vomiting. 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 Past surgical history includes appendectomy, uterus was tied up. Timing/Duration: day(s) (11 DAYS ) Severity: mild Modifying Factors: Improves With: other (COUGH MEDICINE PRESCRIBED BY PATIENT'S FAMILY DOCTOR) Associated Symptoms: cough, fever, No nausea, No vomiting, No abdominal pain, No shortness of breath, No heartburn, No diaphoresis, No chest pain, No headaches, No loss of appetite, No malaise, No rash, No syncope, No seizure, No weakness Allergies/Adverse Reactions: No Known Drug Allergies Allergy (Verified 12/27/17 14:53) Home Medications: Sertraline HCl 1 tab PO HS 12/27/17 [History] Famotidine 40 mg PO DAILY 03/29/18 [History] Hx Tetanus, Diphtheria Vaccination/Date Given: No Hx Influenza Vaccination/Date Given: Yes Hx Pneumococcal Vaccination/Date Given: No Immunizations Up to Date: Yes - Review of Systems Constitutional: Fever (lowgrade), No Chills, No Fatigue, No Lethargy, No Malaise , No Night Sweats, No Weakness, No Weight Loss Eyes: No Symptoms Ears, Nose, & Throat: No Symptoms Respiratory: Cough, No Cyanosis, No Dyspnea, No Dyspnea on Exertion (LOYA), No Stridor, No Wheezing Cardiac: No Chest Pain, No Edema, No Syncope Abdominal/Gastrointestinal: No Abdominal Pain, No Nausea, No Vomiting, No Diarrhea Genitourinary Symptoms: No Dysuria Musculoskeletal: No Back Pain, No Neck Pain Skin: No Rash Neurological: No Dizziness, No Focal Weakness, No Sensory Changes Psychological: No Symptoms Endocrine: No Symptoms All Other Systems: Reviewed and Negative - Past Medical History Pertinent Past Medical History: Yes Neurological History: Dementia, Stroke ENT History: No Pertinent History Cardiac History: No Pertinent History Respiratory History: No Pertinent History Endocrine Medical History: No Pertinent History Musculoskeletal History: No Pertinent History GI Medical History: No Pertinent History History: No Pertinent History Psycho-Social History: Anxiety Female Reproductive Disorders: No Pertinent History 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 - Past Surgical History Past Surgical History: Yes Neuro Surgical History: No Pertinent History Cardiac: No Pertinent History Respiratory: No Pertinent History Gastrointestinal: Appendectomy Genitourinary: No Pertinent History Musculoskeletal: No Pertinent History Female Surgical History: No Pertinent History Other Surgical History: had uterus tied up - Social History Smoking Status: Never smoker Exposure to second hand smoke: No Drug Use: none Patient Lives Alone: No - Female History Hx Now: No - Nursing Vital Signs Nursing Vital Signs: Initial Vital Signs Temperature 98.2 F 03/29/18 14:18 Pulse Rate 72 03/29/18 14:18 Respiratory Rate 20 03/29/18 14:18 Blood Pressure 185/101 03/29/18 14:18 O2 Sat by Pulse Oximetry 95 03/29/18 14:18 Pain Scale Pain Intensity 0 - Physical Exam General Appearance: no apparent distress, alert, other (elderly white female in no apparent distress, patient on coughing at present) Eye Exam: PERRL/EOMI, eyes nml inspection Ears, Nose, Throat Exam: normal ENT inspection, TMs normal, pharynx normal, moist mucous membranes Neck Exam: normal inspection, non-tender, supple, full range of motion Respiratory Exam: normal breath sounds, lungs clear, No respiratory distress Cardiovascular Exam: regular rate/rhythm, normal heart sounds, normal peripheral pulses, capillary refill <2 sec Gastrointestinal/Abdomen Exam: soft, normal bowel sounds, No tenderness, No mass Back Exam: normal inspection, normal range of motion, No CVA tenderness, No vertebral tenderness Extremity Exam: normal inspection, normal range of motion, pelvis stable Neurologic Exam: alert, oriented x 3, cooperative, artillery officer II-XII nml as tested, normal mood/affect, nml cerebellar function, nml station & gait, sensation nml, No motor deficits Skin Exam: normal color, warm, dry, No rash SpO2 Interpretation: normal (95%) SpO2: 95 Oxygen Delivery: Room Air - Course Nursing assessment & vital signs reviewed: Yes EKG Interpreted by Me: RATE (71 bpm), Sinus Rhythm, NORMAL AXIS, Other (EKG: Sinus rhythm, 71 bpm, normal axis, no acute ST or T wave changes, essentially normal EKG , compared to November 11, 2017) Ordered Tests: Active Orders 24 hr Category Date Time Status Embedded Systems Software Developer STAT Care 03/29/18 14:43 Active EKG-ER Only STAT Care 03/29/18 14:42 Active IV Insertion STAT Care 03/29/18 14:42 Active cath [Cath for Specimen-Straight] STAT Care 03/29/18 15:12 Active CHEST 1 VIEW (PORTABLE) Stat Exams 03/29/18 14:42 Taken BLOOD CULTURE Stat Lab 03/29/18 15:24 Received CBC W DIFF Stat Lab 03/29/18 15:24 Completed CMP Stat Lab 03/29/18 15:24 Completed CULTURE,URINE Stat Lab 03/29/18 15:24 Received NT PRO BNP Stat Lab 03/29/18 15:24 Completed UA W/RFX UR CULTURE Stat Lab 03/29/18 15:24 Completed Peak Expiratory Flow Rate ONCE RT 03/29/18 17:06 Completed Respiratory Nebulizer STAT RT 03/29/18 16:43 Completed Respiratory Therapy Assessment DAILY RT 03/29/18 17:05 Completed Medication Summary Discontinued Medications Generic Name Dose Route Start Last Admin Trade Name Freq PRN Reason Stop Dose Admin Albuterol/Ipratropium 3 ml 03/29/18 16:43 03/29/18 17:00 Duoneb 0.5-3 Mg/3 Ml Neb IH 03/29/18 16:44 3 ml STAT ONE Administration Albuterol/Ipratropium Confirm 03/29/18 16:59 Duoneb 0.5-3 Mg/3 Ml Neb Administered 03/29/18 17:00 Dose 3 ml IH .STK-MED ONE Ceftriaxone Sodium/Dextrose 1 g in 50 mls @ 100 mls/hr 03/29/18 16:03 17:01 Rocephin 1 Gm-D5w 50 Ml Bag IV 03/29/18 16:32 Infused STAT STA Infusion Ceftriaxone Sodium/Dextrose Confirm 03/29/18 16:26 Rocephin 1 Gm-D5w 50 Ml Bag Administered 03/29/18 16:27 Dose 1 g in 50 mls @ ud IV .STK-MED ONE Lab/Rad Data: Laboratory Result Diagrams 03/29/18 15:24 03/29/18 15:24 Laboratory Results 03/29/18 03/29/18 03/29/18 Range/Units 15:24 15:24 15:24 WBC 5.5 (4.0-10.5) K/mm3 RBC 3.69 L (4.1-5.4) M/mm3 Hgb 9.0 L (12.0-16.0) gm/dl Hct 29.6 L (35-47) % MCV 80.2 (78-100) fl MCH 24.3 L (26-32) pg MCHC 30.4 L (32-36) g/dl RDW 16.0 H (11.5-14.0) % Plt Count 234 (150-450) K/mm3 MPV 8.5 (6-9.5) fl Gran % 57.3 (36.0-66.0) % Eos # (Auto) 0.26 (0-0.5) Absolute Lymphs (auto) 1.30 (1.0-4.6) Absolute Monos (auto) 0.73 (0.0-1.3) Lymphocytes % 23.9 L (24.0-44.0) % Monocytes % 13.4 H (0.0-12.0) % Eosinophils % 4.8 (0.00-5.0) % Basophils % 0.6 (0.0-0.4) % Absolute Granulocytes 3.13 (1.4-6.9) Basophils # 0.03 (0-0.4) Sodium 139 (137-145) mmol/L Potassium 4.0 (3.5-5.1) mmol/L Chloride 106 (98-107) mmol/L Carbon Dioxide 25 (22-30) mmol/L Anion Gap 11.8 (5-15) MEQ/L BUN 19 H (7-17) mg/dL Creatinine 1.02 (0.52-1.04) mg/dL Estimated GFR 54.4 ML/MIN Glucose 108 H (74-106) mg/dL Calcium 8.9 (8.4-10.2) mg/dL Total Bilirubin 0.30 (0.2-1.3) mg/dL AST 18 (14-36) U/L ALT 13 (0-35) U/L Alkaline Phosphatase 73 (38-126) U/L NT-Pro-B Natriuret Pep 959 (0-1800) pg/mL Serum Total Protein 6.5 (6.3-8.2) g/dL Albumin 3.7 (3.5-5.0) g/dL Urine Color YELLOW (YELLOW) Urine Appearance CLEAR (CLEAR) Urine pH 5.0 (5-6) Ur Specific [place] 1.016 (1.005-1.025) Urine Protein NEGATIVE (Negative) Urine Ketones NEGATIVE (NEGATIVE) Urine Blood SMALL (0-5) Rafy/ul Urine Nitrite POSITIVE (NEGATIVE) Urine Bilirubin NEGATIVE (NEGATIVE) Urine Urobilinogen NEGATIVE (0-1) mg/dL Ur Leukocyte Esterase SMALL (NEGATIVE) Urine WBC (Auto) 26-50 (0-5) /HPF Urine RBC (Auto) 6-10 (0-2) /HPF U Epithel Cells (Auto) RARE (FEW) /HPF Urine Bacteria (Auto) MODERATE (NEGATIVE) /HPF Urine Yeast (Budding) Rare (NEGATIVE) /HPF Urine Culture Reflexed YES (NO) Urine Glucose NEGATIVE (NEGATIVE) mg/dL - Progress Progress: improved Progress Note: 03/29/18 14:59 87-year-old white female brought by her family with patient is coughing for 11 days they state that she is coughing increasingly so, for the past 2 days. He has had a low grade fever at home. No vomiting no chest pain no abdominal pain no shortness of breath. Patient arrives he does not appear to be in acute distress. Patient does have elevated blood pressure however she has white coat syndrome. Family states that her blood pressure taken right before she came here was a diastolic of 9110 states they that her family doctor has taken her off of her blood pressure medicines. Family is asking for a urine to be drawn on this patient well. Will go ahead and get chest x-ray EKG CBC CMP and BNP. Patient does not appear to be in acute distress at this time. . 03/29/18 16:44 Patient's chest x-ray decreased inspiratory phase no obvious infiltrates. BMP within normal limits. Patient does have a urinary tract infection. Patient is given Rocephin IV. I reevaluated the patient now I can hear some wheezes posteriorly. Will go ahead and give patient DuoNeb treatment and reassess. 03/29/18 17:59 Patient better after DuoNeb treatment. I did offer consideration for possible observation however patient refuses. Will give patient prednisone 60 mg orally. Will send patient home with a prescription for Keflex, albuterol nebulizer and prednisone. Patient will need to follow-up with her family doctor - Departure Time of Disposition: 18:00 Departure Disposition: Home Clinical Impression: Bronchitis with bronchospasm UTI (urinary tract infection) Qualifiers: Urinary tract infection type: acute cystitis Hematuria presence: without hematuria Qualified Code(s): N30.00 - Acute cystitis without hematuria Condition: Fair Critical Care Time: No Referrals: MICHAEL CAMACHO [Primary Care Provider] - Additional Instructions: Return home. Keflex as prescribed. Prednisone as prescribed. Albuterol hand-held nebulizer one 2 puffs every 4-6 hours. Follow-up with your family doctor tomorrow and arrange follow-up. Return for acute distress or for severe symptoms. Your x-rays have been preliminarily read they will be reread tomorrow you will be contacted if any discrepancies are noted. Prescriptions: Albuterol Common Canister [Proventil Common Canister] 2 puff IH Q4-6HPRN PRN #1 canister PRN Reason: sob, wheezing Cephalexin Mh 500 mg [Keflex 500 mg] 500 mg PO Q6H #28 capsule
[2018-03-29 15:28] LABS: BASOPHIL % 0.6 % (0.0-0.4); Basophil (Absolute #) 0.03 (0-0.4); Eosinophil % 4.8 % (0.00-5.0); Eosinophil (Absolute #) 0.26 (0-0.5); Granulocyte Absolute (ANC) 3.13 (1.4-6.9); Granulocytes % 57.3 % (36.0-66.0); Hematocrit 29.6 % (35-47); Lymphocytes % 23.9 % (24.0-44.0); Mean Cell Volume 80.2 fl (78-100); Mean Corpuscular Hgb Concent. 30.4 g/dl (32-36); Mean Platelet Volume 8.5 fl (6-9.5); Monocyte (Absolute #) 0.73 (0.0-1.3); Monocytes % 13.4 % (0.0-12.0); Platelet Count 234 K/mm3 (150-450); Red Blood Count 3.69 M/mm3 (4.1-5.4); White Blood Count 5.5 K/mm3 (4.0-10.5)
[2018-03-29 15:41] LABS: Mean Corpuscular Hemoglobin 24.3 pg (26-32)
[2018-03-29 15:44] LABS: Appearance CLEAR (CLEAR); Bilirubin NEGATIVE (NEGATIVE); Blood SMALL Ery/ul (0-5); Glucose NEGATIVE (NEGATIVE); Ketones NEGATIVE (NEGATIVE); Leukocyte Esterase SMALL (NEGATIVE); Nitrite POSITIVE (NEGATIVE); Protein,Urine Dip NEGATIVE (Negative); Specific Gravity 1.016 (1.005-1.025); Urobilinogen NEGATIVE mg/dL (0-1)
[2018-03-29 15:56] LABS: ALBUMIN 3.7 g/dL (3.5-5.0); ANION GAP 11.8 MEQ/L (5-15); BILIRUBIN,TOTAL 0.3 mg/dL (0.2-1.3); Calcium 8.9 mg/dL (8.4-10.2); Creatinine 1 1.02 mg/dL (0.52-1.04); Total Protein 6.5 g/dL (6.3-8.2)
[2018-03-29] MEDS ORDERED: ROCEPHIN 1 Gm-D5w 50 ml Bag** 1 G/50 ML IVPB IV STA (16:03)
[2018-03-29] MEDS ORDERED: ROCEPHIN 1 Gm-D5w 50 ml Bag** 1 G/50 ML IVPB IV ONE (16:26)
[2018-03-29] MEDS ORDERED: DUONEB 0.5-3 MG/3 ml Neb IH ONE ×2 (16:43→16:59)
[2018-03-29 18:25] VITALS: BP 203/100
[2018-03-29 18:37] VITALS: PULSE 84; O2SAT 98
--- NOTE | 2018-03-29 20:13 | XRAY ---
Indication: Cough. Comparison: June 24, 2017. Portable chest underinflated today accentuating the cardiopulmonary structures. Cardiac silhouette now obscures left lung base. Remaining heart and lungs unremarkable. Bony thorax intact again with osteopenia and degenerative changes. Impression: Nonacute underinflated chest with chronic features.
== END 2018-03-29 18:50 | disposition home or self-care (01) ==
LOC: ED 14:14
DX: J40 Bronchitis, not specified as acute or chronic (principal); J98.01 Acute bronchospasm; N39.0 Urinary tract infection, site not specified; Z79.899 Other long term (current) drug therapy
CPT/HCPCS: 36000; 36415; 71045; 80053; 81001; 83880; 85025; 87040; 87077; 87086; 87186; 93005; 93041; 94150; 94640; 96374; 99284; P9612; J0696; A9270-GY

== ENCOUNTER 2018-04-07 18:24 | Emergency (ER) | payer MEDICARE, BC ==
--- NOTE | 2018-04-07 18:47 | ERPHSYRPT ---
- History of Present Illness Time Seen by Provider: 04/07/18 18:30 Source: patient, family Exam Limitations: no limitations Physician History: 87 y/o white female presents with one day h/o cough and soa. pt seen a week ago in this ED and dx with uti and tx with keflex. pt seen by pcp yesterday. no changes to tx plan. today pt has soa, wheezing and fever. daughter notes left buttock with some bleeding issue. family told to go to ED if sx worsen Timing/Duration: today Fever Severity: mild Fever Therapy BRIDGE ENGINEER: Acetaminophen Associated Symptoms: cough, shortness of breath Allergies/Adverse Reactions: No Known Drug Allergies Allergy (Verified 04/07/18 18:40) Home Medications: Sertraline HCl 1 tab PO HS 12/27/17 [History] Famotidine 40 mg PO DAILY 03/29/18 [History] Hx Tetanus, Diphtheria Vaccination/Date Given: No Hx Influenza Vaccination/Date Given: Yes Hx Pneumococcal Vaccination/Date Given: No - Review of Systems Constitutional: Fever Eyes: No Symptoms Ears, Nose, & Throat: No Symptoms Respiratory: Cough, Dyspnea (mld), Wheezing, No Stridor Cardiac: No Symptoms, No Chest Pain, No Palpitations, No Syncope Abdominal/Gastrointestinal: No Symptoms, No Abdominal Pain, No Nausea, No Vomiting, No Diarrhea Genitourinary Symptoms: No Symptoms, No Dysuria, No Frequency, No Hematuria Musculoskeletal: No Symptoms Skin: No Symptoms Neurological: No Symptoms Psychological: No Symptoms Endocrine: No Symptoms Hematologic/Lymphatic: No Symptoms Immunological/Allergic: No Symptoms All Other Systems: Reviewed and Negative - Past Medical History Pertinent Past Medical History: Yes Neurological History: Dementia, Stroke ENT History: No Pertinent History Cardiac History: No Pertinent History Respiratory History: No Pertinent History Endocrine Medical History: No Pertinent History Musculoskeletal History: No Pertinent History GI Medical History: No Pertinent History History: No Pertinent History Psycho-Social History: Anxiety Female Reproductive Disorders: No Pertinent History 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 - Past Surgical History Past Surgical History: Yes Neuro Surgical History: No Pertinent History Cardiac: No Pertinent History Respiratory: No Pertinent History Gastrointestinal: Appendectomy Genitourinary: No Pertinent History Musculoskeletal: No Pertinent History Female Surgical History: No Pertinent History Other Surgical History: had uterus tied up - Social History Smoking Status: Never smoker Exposure to second hand smoke: No Drug Use: none Patient Lives Alone: No - Nursing Vital Signs Nursing Vital Signs: Initial Vital Signs Temperature 99.9 F 04/07/18 18:36 Pulse Rate 62 04/07/18 18:36 Respiratory Rate 16 04/07/18 18:36 Blood Pressure 226/98 04/07/18 18:36 O2 Sat by Pulse Oximetry 97 04/07/18 18:36 Pain Scale Pain Intensity 0 - Physical Exam General Appearance: mild distress, alert Eye Exam: PERRL/EOMI ENT Exam: normal ENT inspection, no apparent trauma, hearing grossly normal Neck Exam: normal inspection, non-tender, supple, full range of motion Respiratory Exam: chest non-tender, no respiratory distress, wheezing (bilat lung field), No no accessory muscle use Cardiovascular/Chest Exam: normal heart sounds, regular rate/rhythm Gastrointestinal/Abdominal Exam: soft, non tender, no distention, no mass, no guarding, normal bowel sounds, No guarding, No rebound, No tenderness Pelvic Exam: not done Rectal Exam: not done Extremity Exam: non-tender, normal range of motion, normal inspection, normal capillary refill Neurologic Exam: alert, cooperative, other (pt has sig dementia) Skin Exam: other (left buttock superficial skin ulceration without infection 2.5cm diameter. ) Lymphatic: No adenopathy SpO2 Interpretation: normal Oxygen Delivery: Room Air - Course Nursing assessment & vital signs reviewed: Yes EKG Interpreted by Me: RATE (63), Sinus Rhythm, NORMAL AXIS, NORMAL INTERVALS, NORMAL QRS, Other (no sig change 03/29/18) Ordered Tests: Active Orders 24 hr Category Date Time Status EKG-ER Only STAT Care 04/07/18 18:55 Active IV Insertion STAT Care 04/07/18 18:55 Active CHEST 1 VIEW (PORTABLE) Stat Exams 04/07/18 18:55 Taken CBC W DIFF Stat Lab 04/07/18 19:35 Completed CMP Stat Lab 04/07/18 19:35 Completed NT PRO BNP Stat Lab 04/07/18 19:35 Completed TROPONIN Q3H Lab 04/07/18 19:35 Completed TROPONIN Q3H Lab 04/07/18 22:00 Ordered Medication Summary Discontinued Medications Generic Name Dose Route Start Last Admin Trade Name Freq PRN Reason Stop Dose Admin Enalaprilat 1.25 mg 04/07/18 21:42 Vasotec I.V. 2.5 Mg IV 12/18/18 21:43 STAT ONE Ceftriaxone Sodium/Dextrose 1 g in 50 mls @ 100 mls/hr 04/07/18 19:38 21:43 Rocephin 1 Gm-D5w 50 Ml Bag IV 04/07/18 20:07 Infused STAT STA Infusion Ceftriaxone Sodium/Dextrose Confirm 04/07/18 20:00 Rocephin 1 Gm-D5w 50 Ml Bag Administered 04/07/18 20:01 Dose 1 g in 50 mls @ ud IV .STK-MED ONE Methylprednisolone Sodium Succinate 125 mg 04/07/18 19:17 04/07/18 20:02 Solu-Medrol 125 Mg IV 04/07/18 19:18 125 mg STAT ONE Administration Methylprednisolone Sodium Succinate Confirm 04/07/18 20:00 Solu-Medrol 125 Mg Administered 04/07/18 20:01 Dose 125 mg .ROUTE .STK-MED ONE Lab/Rad Data: Laboratory Result Diagrams 04/07/18 19:35 04/07/18 19:35 Laboratory Results 04/07/18 04/07/18 04/07/18 Range/Units 19:35 19:35 19:35 WBC 5.9 (4.0-10.5) K/mm3 RBC 4.12 (4.1-5.4) M/mm3 Hgb 9.9 L (12.0-16.0) gm/dl Hct 32.6 L (35-47) % MCV 79.1 (78-100) fl MCH 24.0 L (26-32) pg MCHC 30.4 L (32-36) g/dl RDW 16.4 H (11.5-14.0) % Plt Count 278 (150-450) K/mm3 MPV 8.4 (6-9.5) fl Gran % 53.7 (36.0-66.0) % Eos # (Auto) 0.40 (0-0.5) Absolute Lymphs (auto) 1.41 (1.0-4.6) Absolute Monos (auto) 0.91 (0.0-1.3) Lymphocytes % 23.8 L (24.0-44.0) % Monocytes % 15.3 H (0.0-12.0) % Eosinophils % 6.7 H (0.00-5.0) % Basophils % 0.5 (0.0-0.4) % Absolute Granulocytes 3.18 (1.4-6.9) Basophils # 0.03 (0-0.4) Sodium 140 (137-145) mmol/L Potassium 4.0 (3.5-5.1) mmol/L Chloride 106 (98-107) mmol/L Carbon Dioxide 28 (22-30) mmol/L Anion Gap 9.7 (5-15) MEQ/L BUN 17 (7-17) mg/dL Creatinine 1.08 H (0.52-1.04) mg/dL Estimated GFR 50.9 ML/MIN Glucose 89 (74-106) mg/dL Calcium 8.8 (8.4-10.2) mg/dL Total Bilirubin 0.60 (0.2-1.3) mg/dL AST 13 L (14-36) U/L ALT 13 (0-35) U/L Alkaline Phosphatase 87 (38-126) U/L Troponin I < 0.012 (0.000-0.034) ng/mL NT-Pro-B Natriuret Pep 821 (0-1800) pg/mL Serum Total Protein 6.7 (6.3-8.2) g/dL Albumin 3.9 (3.5-5.0) g/dL - Progress Progress: improved Progress Note: 04/07/18 19:12 cxr-no acute process. 04/07/18 19:18 respiratory therapist evaluated pt and pt refuses svn tx. Counseled pt/family regarding: lab results, diagnosis, need for follow-up, rad results - Departure Time of Disposition: 21:48 Departure Disposition: Home Clinical Impression: Cough, Hypertension Condition: Stable Critical Care Time: No Referrals: MICHAEL CAMACHO [Primary Care Provider] - Additional Instructions: take medications as prescribed. follow up tomorrow with primary doctor for further management of cough and hypertension Prescriptions: Prednisone 10 mg [Deltasone 10 mg] 10 mg PO BID #6 tablet
[2018-04-07] MEDS ORDERED: solu-MEDROL 125 MG IV ONE (19:17)
[2018-04-07] MEDS ORDERED: ROCEPHIN 1 Gm-D5w 50 ml Bag** 1 G/50 ML IVPB IV STA (19:38)
[2018-04-07] MEDS ORDERED: ROCEPHIN 1 Gm-D5w 50 ml Bag** 1 G/50 ML IVPB IV ONE (20:00)
[2018-04-07] MEDS ORDERED: solu-MEDROL 125 MG ONE (20:00)
[2018-04-07 20:16] LABS: BASOPHIL % 0.5 % (0.0-0.4); Basophil (Absolute #) 0.03 (0-0.4); Eosinophil % 6.7 % (0.00-5.0); Granulocyte Absolute (ANC) 3.18 (1.4-6.9); Granulocytes % 53.7 % (36.0-66.0); Hematocrit 32.6 % (35-47); Hemoglobin 9.9 gm/dl (12.0-16.0); Lymphocyte (Absolute #) 1.41 (1.0-4.6); Lymphocytes % 23.8 % (24.0-44.0); Mean Cell Volume 79.1 fl (78-100); Mean Corpuscular Hgb Concent. 30.4 g/dl (32-36); Mean Platelet Volume 8.4 fl (6-9.5); Monocyte (Absolute #) 0.91 (0.0-1.3); Monocytes % 15.3 % (0.0-12.0); Platelet Count 278 K/mm3 (150-450); Red Blood Count 4.12 M/mm3 (4.1-5.4); Red Cell Distribution Width 16.4 % (11.5-14.0); White Blood Count 5.9 K/mm3 (4.0-10.5)
[2018-04-07 20:48] LABS: ALBUMIN 3.9 g/dL (3.5-5.0); ANION GAP 9.7 MEQ/L (5-15); BILIRUBIN,TOTAL 0.6 mg/dL (0.2-1.3); Calcium 8.8 mg/dL (8.4-10.2); Creatinine 1 1.08 mg/dL (0.52-1.04); Total Protein 6.7 g/dL (6.3-8.2)
[2018-04-07] MEDS ORDERED: VASOTEC I.V. 2.5 MG IV ONE ×2 (21:42→21:48)
[2018-04-07 22:55] VITALS: BP 191/125; PULSE 75; O2SAT 96
--- NOTE | 2018-04-08 09:00 | XRAY ---
Indication: Wheezing and cough. Comparison: March 29, 2018. Portable chest demonstrates stable right midlung subsegmental atelectasis/scarring. No focal infiltrate, consolidation, or large effusion. Heart is not enlarged for AP portable technique. Bony thorax intact again with osteopenia and degenerative changes. Impression: Nonacute chest with chronic features.
== END 2018-04-07 23:11 | disposition home or self-care (01) ==
LOC: ED 18:24
DX: R05 Cough (principal); R06.02 Shortness of breath; Z79.899 Other long term (current) drug therapy; I10 Essential (primary) hypertension
CPT/HCPCS: 36000; 36415; 71045; 80053; 83880; 84484; 85025; 93005; 96365; 96374; 96375; 99284; J0696; J2930

== ENCOUNTER 2018-04-23 16:06 | Inpatient (IN) | payer MEDICARE, BC ==
[2018-04-23] MEDS ORDERED: Sodium Chloride 0.9% 1000 ML 1,000 ML IV STA (16:37)
[2018-04-23] MEDS ORDERED: Zofran 4 MG/2 ML VIAL IV ONE (16:37)
--- NOTE | 2018-04-23 16:38 | ERPHSYRPT ---
- History of Present Illness Time Seen by Provider: 04/23/18 16:32 Source: family Exam Limitations: other (dementia) Patient Subjective Stated Complaint: pt has history of dementia and an only answers question with one word answers, she states she does not hurt, but told caregiver her chest hurt, pt is being treated for shingles to hip. and that she recently has been constipated but had normal bm today, vomiting x4 today Triage Nursing Assessment: pt alert, confused, resp easy, skin w/d/p. no edema, abd soft ,chest clear Physician History: The patient is an 88-year-old female with a family member who complains that the patient has been vomiting and had diarrhea all day. The patient has severe Alzheimer's dementia and is unable to communicate well. The family member also states that she had complained of chest pain at one point. She no longer is complaining of chest pain. Pt was seen in [facility] and sent to ER. She was being seen by Dr. Camden Camacho and is now being transferred over to Dr. Solis. Pt is DNR. Her past medical history significant for Alzheimer's dementia, TIA, hypertension , GERD, and shingles. Timing/Duration: today Severity: moderate Modifying Factors: Improves With: nothing Associated Symptoms: nausea, vomiting, chest pain Allergies/Adverse Reactions: No Known Drug Allergies Allergy (Verified 04/23/18 16:18) Home Medications: Sertraline HCl 1 tab PO HS 12/27/17 [History] Famotidine 40 mg PO DAILY 03/29/18 [History] Amlodipine Besylate [Norvasc] 2.5 mg DAILY 04/23/18 [History] Tramadol HCl 50 mg [Ultram 50 mg] 50 mg .ROUTE Q4H PRN PRN 04/23/18 [ History] Hx Tetanus, Diphtheria Vaccination/Date Given: No Hx Influenza Vaccination/Date Given: Yes Hx Pneumococcal Vaccination/Date Given: Yes Immunizations Up to Date: Yes - Review of Systems Constitutional: No Fever, No Chills Eyes: No Symptoms Ears, Nose, & Throat: No Symptoms Respiratory: No Cough, No Dyspnea Cardiac: Chest Pain Abdominal/Gastrointestinal: Nausea, Vomiting, Diarrhea Genitourinary Symptoms: No Dysuria Musculoskeletal: No Back Pain, No Neck Pain Skin: No Rash Neurological: No Dizziness, No Focal Weakness, No Sensory Changes Psychological: No Symptoms Endocrine: No Symptoms Hematologic/Lymphatic: No Symptoms Immunological/Allergic: No Symptoms All Other Systems: Reviewed and Negative - Past Medical History Pertinent Past Medical History: Yes Neurological History: Dementia, Stroke ENT History: No Pertinent History Cardiac History: No Pertinent History Respiratory History: No Pertinent History Endocrine Medical History: No Pertinent History Musculoskeletal History: No Pertinent History GI Medical History: No Pertinent History History: No Pertinent History Psycho-Social History: Anxiety Female Reproductive Disorders: No Pertinent History 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 - Past Surgical History Past Surgical History: Yes Neuro Surgical History: No Pertinent History Cardiac: No Pertinent History Respiratory: No Pertinent History Gastrointestinal: Appendectomy Genitourinary: No Pertinent History Musculoskeletal: No Pertinent History Female Surgical History: No Pertinent History Other Surgical History: had uterus tied up - Social History Smoking Status: Never smoker Exposure to second hand smoke: No Drug Use: none Patient Lives Alone: No - Female History Hx Last Menstrual Period: post Hx Now: No - Nursing Vital Signs Nursing Vital Signs: Initial Vital Signs Temperature 97.8 F 04/23/18 16:07 Pulse Rate 78 04/23/18 16:07 Respiratory Rate 18 04/23/18 16:07 Blood Pressure 158/73 04/23/18 16:07 O2 Sat by Pulse Oximetry 98 04/23/18 16:07 Pain Scale Pain Intensity 0 - Physical Exam General Appearance: no apparent distress, alert Eye Exam: PERRL/EOMI, eyes nml inspection Ears, Nose, Throat Exam: normal ENT inspection, TMs normal, pharynx normal, moist mucous membranes Neck Exam: normal inspection, non-tender, supple, full range of motion Respiratory Exam: normal breath sounds, lungs clear, No respiratory distress Cardiovascular Exam: regular rate/rhythm, normal heart sounds, normal peripheral pulses Gastrointestinal/Abdomen Exam: soft, normal bowel sounds, No tenderness, No mass Pelvic Exam: not done Rectal Exam: not done Back Exam: normal inspection, normal range of motion, No CVA tenderness, No vertebral tenderness Extremity Exam: normal inspection, normal range of motion, pelvis stable Neurologic Exam: alert, oriented x 3, cooperative, normal mood/affect, nml cerebellar function, nml station & gait, sensation nml, No motor deficits Lymphatic Exam: No adenopathy SpO2 Interpretation: normal SpO2: 98 Oxygen Delivery: Room Air - Course EKG Interpreted by Me: RATE, Sinus Rhythm, NORMAL AXIS, NORMAL INTERVALS, NORMAL QRS, NORMAL ST-T, Other (no change in EKG compared to EKG from 04/07/18.) - Radiology Exams Chest X-ray Interpretation: Reviewed by me, Teleradiologist Report (per Dr Wade), Infiltrates (new left lung base infiltrate versus atelecstasis.) Abdomen X-ray Interpretation: Reviewed by me, Teleradiologist Report (per Dr Wade), Negative, Other (fecal stasis without stasis) Ordered Tests: Active Orders 24 hr Category Date Time Status EKG-ER Only STAT Care 04/23/18 16:37 Active IV Insertion STAT Care 04/23/18 16:37 Active ABDOMEN 2 VIEW Stat Exams 04/23/18 16:39 Completed CHEST 2 VIEWS (PA AND LAT) Stat Exams 04/23/18 16:39 Completed CBC W DIFF Stat Lab 04/23/18 16:52 Completed CMP Stat Lab 04/23/18 16:52 Completed LIPASE Stat Lab 04/23/18 16:52 Completed Lactic Acid Stat Lab 04/23/18 17:00 Results PROTIME WITH INR Stat Lab 04/23/18 16:52 Completed TROPONIN Q3H Lab 04/23/18 16:52 Completed TROPONIN Q3H Lab 04/23/18 19:45 Ordered TROPONIN Q3H Lab 04/23/18 22:45 Ordered TROPONIN Q3H Lab 04/24/18 01:45 Ordered TROPONIN Q3H Lab 04/24/18 04:45 Ordered Medication Summary Discontinued Medications Generic Name Dose Route Start Last Admin Trade Name Freq PRN Reason Stop Dose Admin Sodium Chloride 1,000 mls @ 999 mls/hr 04/23/18 16:37 04/23/18 17:07 Sodium Chloride 0.9% 1000 Ml IV 04/23/18 17:37 999 mls/hr .Q1H1M STA Administration Sodium Chloride Confirm 04/23/18 17:03 Sodium Chloride 0.9% 1000 Ml Administered 04/23/18 17:04 Dose 1,000 mls @ ud .ROUTE .STK-MED ONE Ondansetron HCl 4 mg 04/23/18 16:37 04/23/18 17:08 Zofran 4 Mg/2 Ml Vial IV 04/23/18 16:38 4 mg STAT ONE Administration Ondansetron HCl Confirm 04/23/18 17:03 Zofran 4 Mg/2 Ml Vial Administered 04/23/18 17:04 Dose 4 mg .ROUTE .STK-MED ONE Lab/Rad Data: Laboratory Result Diagrams 04/23/18 16:52 04/23/18 16:52 Laboratory Results 04/23/18 04/23/18 04/23/18 Range/Units 17:00 16:52 16:52 WBC (4.0-10.5) K/mm3 RBC (4.1-5.4) M/mm3 Hgb (12.0-16.0) gm/dl Hct (35-47) % MCV (78-100) fl MCH (26-32) pg MCHC (32-36) g/dl RDW (11.5-14.0) % Plt Count (150-450) K/mm3 MPV (6-9.5) fl Gran % (36.0-66.0) % Eos # (Auto) (0-0.5) Absolute Lymphs (auto) (1.0-4.6) Absolute Monos (auto) (0.0-1.3) Lymphocytes % (24.0-44.0) % Monocytes % (0.0-12.0) % Eosinophils % (0.00-5.0) % Basophils % (0.0-0.4) % Absolute Granulocytes (1.4-6.9) Basophils # (0-0.4) PT 11.9 (9.95-12.35) SECONDS INR 1.02 (0.8-3.0) Sodium (137-145) mmol/L Potassium (3.5-5.1) mmol/L Chloride (98-107) mmol/L Carbon Dioxide (22-30) mmol/L Anion Gap (5-15) MEQ/L BUN (7-17) mg/dL Creatinine (0.52-1.04) mg/dL Estimated GFR ML/MIN Glucose (74-106) mg/dL Lactic Acid 1.9 (0.4-2.0) Calcium (8.4-10.2) mg/dL Total Bilirubin (0.2-1.3) mg/dL AST (14-36) U/L ALT (0-35) U/L Alkaline Phosphatase (38-126) U/L Troponin I < 0.012 (0.000-0.034) ng/mL Serum Total Protein (6.3-8.2) g/dL Albumin (3.5-5.0) g/dL Lipase (23-300) U/L 04/23/18 04/23/18 Range/Units 16:52 16:52 WBC 6.9 (4.0-10.5) K/mm3 RBC 3.96 L (4.1-5.4) M/mm3 Hgb 9.6 L (12.0-16.0) gm/dl Hct 31.5 L (35-47) % MCV 79.5 (78-100) fl MCH 24.2 L (26-32) pg MCHC 30.5 L (32-36) g/dl RDW 17.9 H (11.5-14.0) % Plt Count 231 (150-450) K/mm3 MPV 8.4 (6-9.5) fl Gran % 72.5 H (36.0-66.0) % Eos # (Auto) 0.09 (0-0.5) Absolute Lymphs (auto) 1.00 (1.0-4.6) Absolute Monos (auto) 0.80 (0.0-1.3) Lymphocytes % 14.4 L (24.0-44.0) % Monocytes % 11.5 (0.0-12.0) % Eosinophils % 1.3 (0.00-5.0) % Basophils % 0.3 (0.0-0.4) % Absolute Granulocytes 5.02 (1.4-6.9) Basophils # 0.02 (0-0.4) PT (9.95-12.35) SECONDS INR (0.8-3.0) Sodium 141 (137-145) mmol/L Potassium 4.0 (3.5-5.1) mmol/L Chloride 106 (98-107) mmol/L Carbon Dioxide 25 (22-30) mmol/L Anion Gap 13.9 (5-15) MEQ/L BUN 21 H (7-17) mg/dL Creatinine 1.06 H (0.52-1.04) mg/dL Estimated GFR 51.9 ML/MIN Glucose 111 H (74-106) mg/dL Lactic Acid (0.4-2.0) Calcium 9.2 (8.4-10.2) mg/dL Total Bilirubin 0.40 (0.2-1.3) mg/dL AST 17 (14-36) U/L ALT 15 (0-35) U/L Alkaline Phosphatase 93 (38-126) U/L Troponin I (0.000-0.034) ng/mL Serum Total Protein 6.8 (6.3-8.2) g/dL Albumin 4.0 (3.5-5.0) g/dL Lipase 90 (23-300) U/L - Progress Progress: unchanged Discussed with : Will Will see patient in: hospital (observation) Counseled pt/family regarding: lab results, diagnosis, rad results - Departure Time of Disposition: 17:54 Departure Disposition: Observation (per Dr Solis) Clinical Impression: Gastroenteritis, Infiltrate noted on imaging study Condition: Stable Critical Care Time: No Referrals: MICHAEL CAMACHO [Primary Care Provider] -
[2018-04-23 16:56] LABS: BASOPHIL % 0.3 % (0.0-0.4); Basophil (Absolute #) 0.02 (0-0.4); Eosinophil % 1.3 % (0.00-5.0); Eosinophil (Absolute #) 0.09 (0-0.5); Granulocytes % 72.5 % (36.0-66.0); Hematocrit 31.5 % (35-47); Hemoglobin 9.6 gm/dl (12.0-16.0); Lymphocytes % 14.4 % (24.0-44.0); Mean Cell Volume 79.5 fl (78-100); Mean Corpuscular Hemoglobin 24.2 pg (26-32); Mean Corpuscular Hgb Concent. 30.5 g/dl (32-36); Mean Platelet Volume 8.4 fl (6-9.5); Monocytes % 11.5 % (0.0-12.0); Platelet Count 231 K/mm3 (150-450); Red Blood Count 3.96 M/mm3 (4.1-5.4); Red Cell Distribution Width 17.9 % (11.5-14.0); White Blood Count 6.9 K/mm3 (4.0-10.5)
[2018-04-23] MEDS ORDERED: Zofran 4 MG/2 ML VIAL ONE (17:03)
[2018-04-23] MEDS ORDERED: Sodium Chloride 0.9% 1000 ML 1,000 ML ONE (17:03)
[2018-04-23 17:04] LABS: Lactic Acid 1.9 (0.4-2.0)
[2018-04-23 17:07] LABS: INR 1.02 (0.8-3.0); PROTIME 11.9 SECONDS (9.95-12.35)
[2018-04-23 17:11] LABS: ANION GAP 13.9 MEQ/L (5-15); BILIRUBIN,TOTAL 0.4 mg/dL (0.2-1.3); Calcium 9.2 mg/dL (8.4-10.2); Creatinine 1 1.06 mg/dL (0.52-1.04); Total Protein 6.8 g/dL (6.3-8.2)
--- NOTE | 2018-04-23 17:17 | XRAY ---
Indication: Cough. Comparison: April 07, 2018. PA/lateral chest demonstrates new left base infiltrate versus atelectasis with tiny effusion. Stable right midlung atelectasis/scarring. Heart is not enlarged.
--- NOTE | 2018-04-23 17:21 | XRAY ---
Indication: Nausea and vomiting. Comparison: None 2 views of the abdomen nonacute and nonobstructed with mild scattered colonic fecal debris and cholecystectomy clips. Solid organs unremarkable. Osseous structures intact with osteopenia, moderate multilevel degenerative spondylosis, and marked levorotoscoliosis. Impression: Fecal stasis without obstruction.
[2018-04-23] MEDS ORDERED: ROCEPHIN 1 Gm-D5w 50 ml Bag** 1 G/50 ML IVPB IV STA (17:49)
[2018-04-23] MEDS ORDERED: ROCEPHIN 1 Gm-D5w 50 ml Bag** 1 G/50 ML IVPB IV ONE (18:00)
[2018-04-23] MEDS ORDERED: Zofran 4 MG/2 ML VIAL IV PRN (18:57)
[2018-04-23] MEDS ORDERED: TYLENOL 325 MG PO PRN (18:57)
[2018-04-24 04:47] LABS: BASOPHIL % 0.6 % (0.0-0.4); Basophil (Absolute #) 0.03 (0-0.4); Eosinophil % 2.8 % (0.00-5.0); Eosinophil (Absolute #) 0.14 (0-0.5); Granulocytes % 60.1 % (36.0-66.0); Hematocrit 29.9 % (35-47); Lymphocyte (Absolute #) 1.16 (1.0-4.6); Lymphocytes % 23.5 % (24.0-44.0); Mean Cell Volume 79.3 fl (78-100); Mean Corpuscular Hgb Concent. 30.1 g/dl (32-36); Mean Platelet Volume 8.2 fl (6-9.5); Monocyte (Absolute #) 0.64 (0.0-1.3); Platelet Count 225 K/mm3 (150-450); Red Blood Count 3.77 M/mm3 (4.1-5.4); White Blood Count 4.9 K/mm3 (4.0-10.5)
[2018-04-24 04:58] LABS: ANION GAP 10.5 MEQ/L (5-15); BLOOD UREA NITROGEN 14 mg/dL (7-17); CHLORIDE 106 mmol/L (98-107); Calcium 8.7 mg/dL (8.4-10.2); Carbon Dioxide 26 mmol/L (22-30); Creatinine 1 0.88 mg/dL (0.52-1.04); Glucose 104 mg/dL (74-106); Potassium 4.1 mmol/L (3.5-5.1); SODIUM 138 mmol/L (137-145)
[2018-04-24 05:08] LABS: Mean Corpuscular Hemoglobin 23.8 pg (26-32)
--- NOTE | 2018-04-24 08:28 | PCM.HP ---
History of Present Illness - Chief Complaint Chief Complaint: Gastroenteritis, PNE History of Present Illness: is a 88 year old female patient of Dr Leyva who developed sudden onset of profuse diarrhea and vomiting, she was unable to tolerate anything by mouth including liquids. She has dementia but lives at home with caretakers. she was admitted for nausea, vomiting and diarrhea for IV fluids. chest xray showed infiltrate vs atelectasis left lung base. - Review of Systems Constitutional: No Fever, No Chills Respiratory: Cough Cardiac: No Chest Pain, No Edema, No Syncope Abdominal/Gastrointestinal: Nausea, Vomiting, Diarrhea Genitourinary Symptoms: No Dysuria Skin: No Rash All Other Systems: Reviewed and Negative Medications & Allergies Home Medications: Home Medication List Sertraline HCl 1 tab PO HS 12/27/17 [History Confirmed 04/23/18] Albuterol Common Canister [Proventil Common Canister] 2 puff IH Q4-6HPRN PRN #1 canister 03/29/18 [Rx Confirmed 04/23/18] Famotidine 40 mg PO DAILY 03/29/18 [History Confirmed 04/23/18] Amlodipine Besylate [Norvasc] 2.5 mg DAILY 04/23/18 [History Confirmed 04/23/18] Tramadol HCl 50 mg [Ultram 50 mg] 50 mg .ROUTE Q4H PRN PRN 04/23/18 [ History Confirmed 04/23/18] Allergies/Adverse Reactions: Allergies Allergy/AdvReac Type Severity Reaction Status Date / Time No Known Drug Allergies Allergy Verified 04/23/18 16:18 - Past Medical History Past Medical History: Yes Neurological History: Dementia, Stroke ENT History: No Pertinent History Cardiac History: No Pertinent History Respiratory History: No Pertinent History Endocrine Medical History: No Pertinent History Musculoskelatal History: No Pertinent History GI Medical History: No Pertinent History History: No Pertinent History Pyscho-Social History: Anxiety Reproductive Disorders: No Pertinent History 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 - Female History Hx Last Menstrual Period: post Are you now?: No - Past Surgical History Past Surgical History: Yes Neuro Surgical History: No Pertinent History Cardiac History: No Pertinent History Respiratory Surgery: No Pertinent History GI Surgical History: Appendectomy Genitourinary Surgical Hx: No Pertinent History Musculskeletal Surgical Hx: No Pertinent History Female Surgical History: No Pertinent History Other Surgical History: had uterus tied up - Social History Smoking Status: Never smoker Exposure to second hand smoke: No Alcohol: None Drug Use: none - Physical Exam Vital Signs: Vital Signs - 24 hr Temp Pulse Pulse Resp BP Pulse Ox 04/24/18 07:54 16 04/24/18 07:08 98.7 F 72 16 148/74 96 04/24/18 07:05 94 L 04/24/18 04:15 98.1 F 72 17 187/81 93 L 04/24/18 04:00 17 04/24/18 00:15 97.9 F 95 H 16 160/85 95 04/24/18 00:00 16 04/23/18 23:35 97.9 F 95 H 16 160/85 95 04/23/18 22:55 168/80 04/23/18 21:30 160/72 04/23/18 20:25 97.6 F 117 H 18 186/76 98 04/23/18 20:04 71 16 95 04/23/18 20:00 16 04/23/18 18:57 95 04/23/18 18:04 78 16 173/74 04/23/18 17:59 98 04/23/18 17:11 72 16 146/62 100 04/23/18 16:10 70 04/23/18 16:07 97.8 F 78 18 158/73 98 General Appearance: no apparent distress, alert Neurologic Exam: alert, oriented x 3, cooperative, normal mood/affect, nml cerebellar function, nml station & gait, sensation nml, No motor deficits Eye Exam: PERRL/EOMI, eyes nml inspection Respiratory Exam: lungs clear, No respiratory distress, No accessory muscle use Cardiovascular Exam: regular rate/rhythm, normal heart sounds, normal peripheral pulses Gastrointestinal/Abdomen Exam: soft, normal bowel sounds, No tenderness, No mass Extremity Exam: normal inspection, normal range of motion, pelvis stable Skin Exam: normal color, warm, dry, No rash Results - Labs Lab/Micro Results: Lab Results-Last 24 Hours 04/23/18 04/23/18 04/23/18 Range/Units 16:52 16:52 16:52 WBC 6.9 (4.0-10.5) K/mm3 RBC 3.96 L (4.1-5.4) M/mm3 Hgb 9.6 L (12.0-16.0) gm/dl Hct 31.5 L (35-47) % MCV 79.5 (78-100) fl MCH 24.2 L (26-32) pg MCHC 30.5 L (32-36) g/dl RDW 17.9 H (11.5-14.0) % Plt Count 231 (150-450) K/mm3 MPV 8.4 (6-9.5) fl Gran % 72.5 H (36.0-66.0) % Eos # (Auto) 0.09 (0-0.5) Absolute Lymphs (auto) 1.00 (1.0-4.6) Absolute Monos (auto) 0.80 (0.0-1.3) Lymphocytes % 14.4 L (24.0-44.0) % Monocytes % 11.5 (0.0-12.0) % Eosinophils % 1.3 (0.00-5.0) % Basophils % 0.3 (0.0-0.4) % Absolute Granulocytes 5.02 (1.4-6.9) Basophils # 0.02 (0-0.4) PT 11.9 (9.95-12.35) SECONDS INR 1.02 (0.8-3.0) Sodium 141 (137-145) mmol/L Potassium 4.0 (3.5-5.1) mmol/L Chloride 106 (98-107) mmol/L Carbon Dioxide 25 (22-30) mmol/L Anion Gap 13.9 (5-15) MEQ/L BUN 21 H (7-17) mg/dL Creatinine 1.06 H (0.52-1.04) mg/dL Estimated GFR 51.9 ML/MIN Glucose 111 H (74-106) mg/dL Lactic Acid (0.4-2.0) Calcium 9.2 (8.4-10.2) mg/dL Total Bilirubin 0.40 (0.2-1.3) mg/dL AST 17 (14-36) U/L ALT 15 (0-35) U/L Alkaline Phosphatase 93 (38-126) U/L Troponin I (0.000-0.034) ng/mL Serum Total Protein 6.8 (6.3-8.2) g/dL Albumin 4.0 (3.5-5.0) g/dL Lipase 90 (23-300) U/L 04/23/18 04/23/18 04/23/18 Range/Units 16:52 17:00 20:11 WBC (4.0-10.5) K/mm3 RBC (4.1-5.4) M/mm3 Hgb (12.0-16.0) gm/dl Hct (35-47) % MCV (78-100) fl MCH (26-32) pg MCHC (32-36) g/dl RDW (11.5-14.0) % Plt Count (150-450) K/mm3 MPV (6-9.5) fl Gran % (36.0-66.0) % Eos # (Auto) (0-0.5) Absolute Lymphs (auto) (1.0-4.6) Absolute Monos (auto) (0.0-1.3) Lymphocytes % (24.0-44.0) % Monocytes % (0.0-12.0) % Eosinophils % (0.00-5.0) % Basophils % (0.0-0.4) % Absolute Granulocytes (1.4-6.9) Basophils # (0-0.4) PT (9.95-12.35) SECONDS INR (0.8-3.0) Sodium (137-145) mmol/L Potassium (3.5-5.1) mmol/L Chloride (98-107) mmol/L Carbon Dioxide (22-30) mmol/L Anion Gap (5-15) MEQ/L BUN (7-17) mg/dL Creatinine (0.52-1.04) mg/dL Estimated GFR ML/MIN Glucose (74-106) mg/dL Lactic Acid 1.9 (0.4-2.0) Calcium (8.4-10.2) mg/dL Total Bilirubin (0.2-1.3) mg/dL AST (14-36) U/L ALT (0-35) U/L Alkaline Phosphatase (38-126) U/L Troponin I < 0.012 0.014 (0.000-0.034) ng/mL Serum Total Protein (6.3-8.2) g/dL Albumin (3.5-5.0) g/dL Lipase (23-300) U/L 04/23/18 04/24/18 04/24/18 Range/Units 22:58 01:50 04:32 WBC (4.0-10.5) K/mm3 RBC (4.1-5.4) M/mm3 Hgb (12.0-16.0) gm/dl Hct (35-47) % MCV (78-100) fl MCH (26-32) pg MCHC (32-36) g/dl RDW (11.5-14.0) % Plt Count (150-450) K/mm3 MPV (6-9.5) fl Gran % (36.0-66.0) % Eos # (Auto) (0-0.5) Absolute Lymphs (auto) (1.0-4.6) Absolute Monos (auto) (0.0-1.3) Lymphocytes % (24.0-44.0) % Monocytes % (0.0-12.0) % Eosinophils % (0.00-5.0) % Basophils % (0.0-0.4) % Absolute Granulocytes (1.4-6.9) Basophils # (0-0.4) PT (9.95-12.35) SECONDS INR (0.8-3.0) Sodium (137-145) mmol/L Potassium (3.5-5.1) mmol/L Chloride (98-107) mmol/L Carbon Dioxide (22-30) mmol/L Anion Gap (5-15) MEQ/L BUN (7-17) mg/dL Creatinine (0.52-1.04) mg/dL Estimated GFR ML/MIN Glucose (74-106) mg/dL Lactic Acid (0.4-2.0) Calcium (8.4-10.2) mg/dL Total Bilirubin (0.2-1.3) mg/dL AST (14-36) U/L ALT (0-35) U/L Alkaline Phosphatase (38-126) U/L Troponin I 0.019 0.019 0.016 (0.000-0.034) ng/mL Serum Total Protein (6.3-8.2) g/dL Albumin (3.5-5.0) g/dL Lipase (23-300) U/L 04/24/18 04/24/18 Range/Units 04:32 04:32 WBC 4.9 (4.0-10.5) K/mm3 RBC 3.77 L (4.1-5.4) M/mm3 Hgb 9.0 L (12.0-16.0) gm/dl Hct 29.9 L (35-47) % MCV 79.3 (78-100) fl MCH 23.8 L (26-32) pg MCHC 30.1 L (32-36) g/dl RDW 18.0 H (11.5-14.0) % Plt Count 225 (150-450) K/mm3 MPV 8.2 (6-9.5) fl Gran % 60.1 (36.0-66.0) % Eos # (Auto) 0.14 (0-0.5) Absolute Lymphs (auto) 1.16 (1.0-4.6) Absolute Monos (auto) 0.64 (0.0-1.3) Lymphocytes % 23.5 L (24.0-44.0) % Monocytes % 13.0 H (0.0-12.0) % Eosinophils % 2.8 (0.00-5.0) % Basophils % 0.6 (0.0-0.4) % Absolute Granulocytes 2.96 (1.4-6.9) Basophils # 0.03 (0-0.4) PT (9.95-12.35) SECONDS INR (0.8-3.0) Sodium 138 (137-145) mmol/L Potassium 4.1 (3.5-5.1) mmol/L Chloride 106 (98-107) mmol/L Carbon Dioxide 26 (22-30) mmol/L Anion Gap 10.5 (5-15) MEQ/L BUN 14 (7-17) mg/dL Creatinine 0.88 (0.52-1.04) mg/dL Estimated GFR > 60.0 ML/MIN Glucose 104 (74-106) mg/dL Lactic Acid (0.4-2.0) Calcium 8.7 (8.4-10.2) mg/dL Total Bilirubin (0.2-1.3) mg/dL AST (14-36) U/L ALT (0-35) U/L Alkaline Phosphatase (38-126) U/L Troponin I (0.000-0.034) ng/mL Serum Total Protein (6.3-8.2) g/dL Albumin (3.5-5.0) g/dL Lipase (23-300) U/L - Radiology Impressions Radiology Exams & Impressions: Radiology Procedures Category Date Time Status ABDOMEN 2 VIEW Stat Exams 04/23/18 16:39 Completed CHEST 2 VIEWS (PA AND LAT) Stat Exams 04/23/18 16:39 Completed Assessment/Plan (1) Gastroenteritis Current Visit: Yes Status: Acute Assessment & Plan: vomiting and diarrhea resolved since admission, will advance diet Code(s): K52.9 - NONINFECTIVE GASTROENTERITIS AND COLITIS, UNSPECIFIED (2) Pneumonia Current Visit: Yes Status: Acute Assessment & Plan: continue rocephin and zithromax, nebs and supportive care. Code(s): J18.9 - PNEUMONIA, UNSPECIFIED ORGANISM
[2018-04-24] MEDS ORDERED: PROVENTIL COMMON CANISTER IH PRN (09:59)
[2018-04-24] MEDS ORDERED: ULTRAM 50 MG PO PRN (09:59)
[2018-04-24] MEDS ORDERED: Zithromax 500 MG/ 250 ML NaCl Premix 500 MG/250 ML IVPB IV SCH (10:00)
[2018-04-24] MEDS ORDERED: NORVASC 5 MG PO SCH (10:00)
[2018-04-24] MEDS: Pepcid 20 MG PO SCH (10:34)
[2018-04-24] MEDS: Sodium Chloride 0.9% 1000 ML 1,000 ML IV SCH (11:22)
[2018-04-24] MEDS ORDERED: SERTRALINE HCL PO SCH (22:00)
[2018-04-24] MEDS: Zithromax 500 MG/ 250 ML NaCl Premix 500 MG/250 ML IVPB IV SCH (23:10)
[2018-04-24] MEDS: ZOLOFT 50 MG TABLET PO SCH (23:10)
[2018-04-24] MEDS: ROCEPHIN 1 Gm-D5w 50 ml Bag** 1 G/50 ML IVPB IV SCH (23:10)
[2018-04-25 05:38] LABS: BASOPHIL % 0.4 % (0.0-0.4); Basophil (Absolute #) 0.02 (0-0.4); Eosinophil % 3.5 % (0.00-5.0); Eosinophil (Absolute #) 0.19 (0-0.5); Granulocytes % 57.3 % (36.0-66.0); Hematocrit 30.6 % (35-47); Hemoglobin 9.3 gm/dl (12.0-16.0); Lymphocyte (Absolute #) 1.24 (1.0-4.6); Lymphocytes % 22.6 % (24.0-44.0); Mean Cell Volume 78.7 fl (78-100); Mean Corpuscular Hemoglobin 23.9 pg (26-32); Mean Corpuscular Hgb Concent. 30.4 g/dl (32-36); Mean Platelet Volume 8.4 fl (6-9.5); Monocyte (Absolute #) 0.89 (0.0-1.3); Monocytes % 16.2 % (0.0-12.0); Platelet Count 234 K/mm3 (150-450); Red Blood Count 3.89 M/mm3 (4.1-5.4); Red Cell Distribution Width 17.8 % (11.5-14.0); White Blood Count 5.5 K/mm3 (4.0-10.5)
[2018-04-25 05:49] LABS: ANION GAP 11.9 MEQ/L (5-15); BLOOD UREA NITROGEN 8 mg/dL (7-17); CHLORIDE 106 mmol/L (98-107); Calcium 8.9 mg/dL (8.4-10.2); Carbon Dioxide 25 mmol/L (22-30); Creatinine 1 0.91 mg/dL (0.52-1.04); Glucose 103 mg/dL (74-106); Potassium 3.9 mmol/L (3.5-5.1); SODIUM 139 mmol/L (137-145)
--- NOTE | 2018-04-25 07:54 | PCM.NOTE ---
Date and Time: 04/25/1848 Subjective Assessment: She had large emesis and large loose stool yesterday. Her son and another family member are at the bedside. Patient awakens but doesn't say much. She denies pain. - Review of Systems All Other Systems: Unable due to dementia (denies pain) Objective Exam General Appearance: no apparent distress, alert Neurologic Exam: alert, cooperative, normal mood/affect Skin Exam: normal color, warm, dry, No rash Respiratory Exam: normal breath sounds, lungs clear, No crackles/rales, No rhonchi, No wheezing Cardiovascular Exam: regular rate/rhythm, normal heart sounds, No murmur, No friction rub, No gallop Gastrointestinal/Abdomen Exam: soft, normal bowel sounds, No tenderness, No distention, No mass Extremity Exam: normal inspection, other (no c/c/e) OBJECTIVE DATA Vital Signs: Vital Signs - 24 hr Temp Pulse Resp BP Pulse Ox 04/25/18 07:34 98 F 84 20 186/82 98 04/25/18 04:00 98.1 F 75 21 188/87 97 04/25/18 00:00 23 04/24/18 23:49 97.9 F 71 23 171/76 98 04/24/18 20:00 97.7 F 74 17 141/66 97 04/24/18 19:54 69 18 96 04/24/18 16:00 97.6 F 74 18 136/58 94 L 04/24/18 12:00 99.3 F 70 18 130/59 94 L 04/24/18 11:17 16 04/24/18 11:07 96 04/24/18 07:54 16 Pain Assessment - Last Documented Pain Intensity 0 [facility] Intake and Output: Intake & Output 04/23/18 04/24/18 04/25/18 04/26/18 06:59 06:59 06:59 06:59 Intake Total 370 1896 Output Total 200 Balance 370 1696 Weight 59.9 kg Lab Results: Lab Results-Last 24 Hours 04/25/18 04/25/18 Range/Units 05:03 05:03 WBC 5.5 (4.0-10.5) K/mm3 RBC 3.89 L (4.1-5.4) M/mm3 Hgb 9.3 L (12.0-16.0) gm/dl Hct 30.6 L (35-47) % MCV 78.7 (78-100) fl MCH 23.9 L (26-32) pg MCHC 30.4 L (32-36) g/dl RDW 17.8 H (11.5-14.0) % Plt Count 234 (150-450) K/mm3 MPV 8.4 (6-9.5) fl Gran % 57.3 (36.0-66.0) % Eos # (Auto) 0.19 (0-0.5) Absolute Lymphs (auto) 1.24 (1.0-4.6) Absolute Monos (auto) 0.89 (0.0-1.3) Lymphocytes % 22.6 L (24.0-44.0) % Monocytes % 16.2 H (0.0-12.0) % Eosinophils % 3.5 (0.00-5.0) % Basophils % 0.4 (0.0-0.4) % Absolute Granulocytes 3.15 (1.4-6.9) Basophils # 0.02 (0-0.4) Sodium 139 (137-145) mmol/L Potassium 3.9 (3.5-5.1) mmol/L Chloride 106 (98-107) mmol/L Carbon Dioxide 25 (22-30) mmol/L Anion Gap 11.9 (5-15) MEQ/L BUN 8 (7-17) mg/dL Creatinine 0.91 (0.52-1.04) mg/dL Estimated GFR > 60.0 ML/MIN Glucose 103 (74-106) mg/dL Calcium 8.9 (8.4-10.2) mg/dL Radiology Exams: Radiology Procedures Category Date Time Status ABDOMEN 2 VIEW Stat Exams 04/23/18 16:39 Completed CHEST 2 VIEWS (PA AND LAT) Stat Exams 04/23/18 16:39 Completed Assessment/Plan (1) Gastroenteritis Current Visit: Yes Status: Acute Assessment & Plan: Continue with fluids and encourage oral intake. If she does well through the day today, may be discharged tomorrow. If continued diarrhea, may need to check stool studies. She lives at home alone but her family pays for someone to be with her 24 hours a day. Code(s): K52.9 - NONINFECTIVE GASTROENTERITIS AND COLITIS, UNSPECIFIED (2) Pneumonia Current Visit: Yes Status: Acute Qualifiers: Laterality: left Lung location: lower lobe of lung Assessment & Plan: Continue with ceftriaxone and azithromycin. Code(s): J18.9 - PNEUMONIA, UNSPECIFIED ORGANISM (3) Dementia Current Visit: No Status: Chronic Qualifiers: Assessment & Plan: History of iron deficiency anemia. Will check iron studies in AM if they have not been checked in the last few months. Code(s): F03.90 - UNSPECIFIED DEMENTIA WITHOUT BEHAVIORAL DISTURBANCE (4) Anemia Current Visit: No Status: Acute Qualifiers: Anemia type: iron deficiency Iron deficiency anemia type: unspecified iron deficiency Qualified Code(s): D50.9 - Iron deficiency anemia, unspecified Code(s): D64.9 - ANEMIA, UNSPECIFIED
[2018-04-25] MEDS: NORVASC 5 MG PO SCH (08:20)
[2018-04-25] MEDS: Pepcid 20 MG PO SCH (08:20)
[2018-04-25] MEDS: Sodium Chloride 0.9% 1000 ML 1,000 ML IV SCH (08:24)
[2018-04-25] MEDS: ROCEPHIN 1 Gm-D5w 50 ml Bag** 1 G/50 ML IVPB IV SCH (21:00)
[2018-04-25] MEDS: ZOLOFT 50 MG TABLET PO SCH (21:00)
[2018-04-25] MEDS: Zithromax 500 MG/ 250 ML NaCl Premix 500 MG/250 ML IVPB IV SCH (22:01)
[2018-04-26 05:59] LABS: BASOPHIL % 1.1 % (0.0-0.4); Basophil (Absolute #) 0.05 (0-0.4); Eosinophil % 6.1 % (0.00-5.0); Eosinophil (Absolute #) 0.28 (0-0.5); Granulocytes % 45.4 % (36.0-66.0); Hematocrit 27.9 % (35-47); Hemoglobin 8.4 gm/dl (12.0-16.0); Lymphocyte (Absolute #) 1.33 (1.0-4.6); Lymphocytes % 29.2 % (24.0-44.0); Mean Cell Volume 79.3 fl (78-100); Mean Corpuscular Hgb Concent. 30.1 g/dl (32-36); Mean Platelet Volume 8.5 fl (6-9.5); Monocyte (Absolute #) 0.83 (0.0-1.3); Monocytes % 18.2 % (0.0-12.0); Platelet Count 234 K/mm3 (150-450); Red Blood Count 3.52 M/mm3 (4.1-5.4); White Blood Count 4.6 K/mm3 (4.0-10.5)
[2018-04-26 06:01] LABS: Mean Corpuscular Hemoglobin 23.8 pg (26-32)
[2018-04-26 06:20] LABS: ANION GAP 9.2 MEQ/L (5-15); BLOOD UREA NITROGEN 11 mg/dL (7-17); CHLORIDE 106 mmol/L (98-107); Calcium 8.7 mg/dL (8.4-10.2); Carbon Dioxide 26 mmol/L (22-30); Creatinine 1 0.91 mg/dL (0.52-1.04); Glucose 94 mg/dL (74-106); Potassium 4.1 mmol/L (3.5-5.1); SODIUM 137 mmol/L (137-145)
[2018-04-26 06:29] LABS: Iron 25 ug/dL (37-170); Iron Saturation 8 % (20-39); TIBC 315 ug/dL (265-462)
[2018-04-26] MEDS: Sodium Chloride 0.9% 1000 ML 1,000 ML IV SCH (06:46)
[2018-04-26] MEDS ORDERED: FEOSOL 325 MG PO SCH (10:00)
--- NOTE | 2018-04-26 10:34 | PCM.DCORD ---
- Discharge Discharge Date: 04/26/18 Disposition: Home, Self-Care Condition: Good Prescriptions: New Ferrous Sulfate 325 mg [Feosol 325 mg] 325 mg PO BID #60 tablet Amlodipine Besylate 5 mg [Norvasc 5 mg] 5 mg PO DAILY #30 tablet Cefdinir [Omnicef] 300 mg PO BID #8 capsule Azithromycin 250 mg [Zithromax 250 MG TABLET] 250 mg PO DAILY #2 tablet Continue Sertraline HCl 1 tab PO HS Famotidine 40 mg PO DAILY Albuterol Common Canister [Proventil Common Canister] 2 puff IH Q4- 6HPRN PRN #1 canister PRN Reason: sob, wheezing Tramadol HCl 50 mg [Ultram 50 mg] 50 mg .ROUTE Q4H PRN PRN PRN Reason: Pain Discontinued Amlodipine Besylate [Norvasc] 2.5 mg DAILY Follow up with: MICHAEL CAMACHO [Primary Care Provider] - 1 Week
[2018-04-26] MEDS: Pepcid 20 MG PO SCH (10:36)
[2018-04-26] MEDS: NORVASC 5 MG PO SCH (10:37)
[2018-04-26 11:19] VITALS: BP 160/76; PULSE 73; O2SAT 96
--- NOTE | 2018-04-28 15:15 | DS ---
DISCHARGE DIAGNOSES: 1) GASTROENTERITIS. 2) LEFT LOWER LOBE PNEUMONIA. 3) DEMENTIA. 4) IRON DEFICIENCY ANEMIA. DISCHARGE PHYSICAL EXAMINATION: VITALS: Temperature current 98F, temperature max 98.7F, heart rate 69 to 76, respiratory rate 16 to 18, blood pressure 127 to 180 over 74 to 86. Oxygen saturation 95 to 97% on room air. GENERAL: The patient is lying in bed. Her son and were at the bedside. The patient was nonverbal, in no acute distress, looking around. Family member's state she has been more agitated last night and this morning. CVS: Her heart has a regular rate and rhythm. No murmurs, gallops or rubs are appreciated. CHEST: Clear to auscultation bilaterally. ABDOMEN: Soft, nontender, nondistended with normal bowel sounds. EXTREMITIES: No clubbing, cyanosis or edema. SKIN: Warm, dry and intact. HOSPITAL COURSE: 1) GASTROENTERITIS: She has had no further episodes of vomiting or diarrhea. She has been ambulating in the room well. 2) PNEUMONIA, LEFT LOWER LOBE: She has been on ceftriaxone and azithromycin for three days, will finish out a five day course of azithromycin and a seven day course of third generation cephalosporin with four more days of Cefdinir 300 mg p.o. b.i.d. 3) HYPOTENSION: I increased her amlodipine from 2.5 to 5 mg. She will need to follow up with her primary care physician regarding this. 4) IRON DEFICIENCY ANEMIA: I checked her iron level. Her iron was 25 and iron saturation was 8. Her TIBC was normal. Hemoglobin at discharge was 8.4. I have started her on ferrous sulfate 325 mg p.o. b.i.d. and she will need to have her hemoglobin and iron rechecked in three months. DISCHARGE MEDICATIONS: Please see the discharge order. DISPOSITION: The patient was discharged to home in fair condition.
== END 2018-04-26 12:45 | disposition home or self-care (01) | DRG 391 ==
LOC: ED 16:06 → MED SURG 18:45 → INTOOBSV 04-24 18:45 → OBSVTOIN 04-24 18:45
PROVIDERS: ADMIT Family Medicine; ATTEND Family Medicine
DX: K52.9 Noninfective gastroenteritis and colitis, unspecified (principal); J18.9 Pneumonia, unspecified organism; F03.90 Unspecified dementia, unspecified severity, without behavioral disturbance, psychotic disturbance, mood disturbance, and anxiety; D50.9 Iron deficiency anemia, unspecified; I95.9 Hypotension, unspecified; F41.9 Anxiety disorder, unspecified; R91.8 Other nonspecific abnormal finding of lung field; Z85.820 Personal history of malignant melanoma of skin; R41.0 Disorientation, unspecified; G30.9 Alzheimer's disease, unspecified; F02.80 Dementia in other diseases classified elsewhere, unspecified severity, without behavioral disturbance, psychotic disturbance, mood disturbance, and anxiety; I10 Essential (primary) hypertension; K21.9 Gastro-esophageal reflux disease without esophagitis; Z86.73 Personal history of transient ischemic attack (TIA), and cerebral infarction without residual deficits
CPT/HCPCS: 36000; 36415; 71046; 74021; 80048; 80053; 83540; 83550; 83605; 83690; 84484; 85025; 85610; 87040; 93005; 93268; 94762; 96360; 96365; 96374; 96375; 99285; G0378; J0456; J0696; J2405; A9270-GY

== ENCOUNTER 2018-08-14 17:49 | Emergency (ER) | payer MEDICARE, BC ==
[2018-08-14 18:52] LABS: BASOPHIL % 0.5 % (0.0-0.4); Basophil (Absolute #) 0.03 (0-0.4); Eosinophil % 6.2 % (0.00-5.0); Eosinophil (Absolute #) 0.35 (0-0.5); Granulocyte Absolute (ANC) 3.02 (1.4-6.9); Granulocytes % 53.9 % (36.0-66.0); Hematocrit 40.2 % (35-47); Hemoglobin 13.1 gm/dl (12.0-16.0); Lymphocyte (Absolute #) 1.35 (1.0-4.6); Lymphocytes % 24.1 % (24.0-44.0); Mean Cell Volume 84.3 fl (78-100); Mean Corpuscular Hemoglobin 27.5 pg (26-32); Mean Corpuscular Hgb Concent. 32.6 g/dl (32-36); Mean Platelet Volume 8.2 fl (6-9.5); Monocyte (Absolute #) 0.86 (0.0-1.3); Monocytes % 15.3 % (0.0-12.0); Platelet Count 241 K/mm3 (150-450); Red Blood Count 4.77 M/mm3 (4.1-5.4); Red Cell Distribution Width 14.8 % (11.5-14.0); White Blood Count 5.6 K/mm3 (4.0-10.5)
[2018-08-14 19:05] LABS: ALBUMIN 3.8 g/dL (3.5-5.0); ANION GAP 13.8 MEQ/L (5-15); BILIRUBIN,TOTAL 0.3 mg/dL (0.2-1.3); Calcium 9.5 mg/dL (8.4-10.2); Creatinine 1 1.08 mg/dL (0.52-1.04); Potassium 4.3 mmol/L (3.5-5.1); Total Protein 6.8 g/dL (6.3-8.2)
[2018-08-14 19:44] LABS: Appearance CLEAR (CLEAR); Bilirubin NEGATIVE (NEGATIVE); Blood SMALL Ery/ul (0-5); Glucose NEGATIVE (NEGATIVE); Ketones NEGATIVE (NEGATIVE); Leukocyte Esterase NEGATIVE (NEGATIVE); Mucus SLIGHT /HPF (NEGATIVE); Nitrite NEGATIVE (NEGATIVE); Protein,Urine Dip NEGATIVE (Negative); RBC 0-2 /HPF (0-2); Specific Gravity 1.018 (1.005-1.025); Urobilinogen NEGATIVE mg/dL (0-1)
[2018-08-14 19:59] VITALS: BP 174/85; PULSE 73; O2SAT 97
--- NOTE | 2018-08-14 22:14 | XRAY ---
Indication: Short of breath and wheezing. Tracheal deviation. Dementia. Multiple contiguous axial images obtained through the chest without contrast as ordered. Comparison: None Lungs inflated with scattered peripheral and bibasilar fibrosis/scarring. No suspicious pulmonary mass, infiltrate, or effusion. Heart is borderline enlarged. No pericardial effusion. Aorta mildly arteriosclerotic without aneurysmal dilatation. Mild tracheomalacia. Small mediastinal lymph nodes none pathologically enlarged. Small hiatal hernia. Bony thorax demonstrates osteopenia and mild degenerative changes throughout the spine. Limited upper abdomen demonstrates a few hepatic cysts, largest in the right lobe near the dome of the diaphragm measuring 1.4 cm. Impression: 1. Borderline cardiomegaly and scattered fibrosis/scarring. 2. No acute cardiopulmonary abnormalities on this noncontrast exam. 3. Incidental small hiatal hernia and hepatic cysts. Comment: Preliminary interpretation was made by [facility]. No critical discrepancy. CTDI 14.02
--- NOTE | 2018-08-14 22:16 | XRAY ---
Indication: Short of breath. Comparison: April 23, 2018. Portable chest again demonstrates chronic lung markings. No focal infiltrate, consolidation, or large effusion. Heart is borderline enlarged. Bony thorax intact again without osteopenia and degenerative changes. Impression: Borderline cardiomegaly. Negative acute pneumonic process or CHF.
--- NOTE | 2018-08-14 22:24 | ERPHSYRPT ---
- History of Present Illness Source: family Exam Limitations: clinical condition Patient Subjective Stated Complaint: pt has dementia. family staets that she has had wheezes and difficulty breathing. Triage Nursing Assessment: alert and confused due to dementia. family states she had an episode of wheezing. on arrival here no wheezing auscultated.lungs clear bilaterally denies any SOB.. no abdominal pain..family at bedside. Physician History: Pt is an 88 y/o female that has severe dementia. She was brought to the ED by her family, secondary to cough and wheeze. Pt can't give any ROS. She is severely demanted, and can't provide any history or ROS. Timing/Duration: yesterday Severity: mild Associated Symptoms: cough Allergies/Adverse Reactions: No Known Drug Allergies Allergy (Verified 08/14/18 18:38) Hx Tetanus, Diphtheria Vaccination/Date Given: No Hx Influenza Vaccination/Date Given: Yes Hx Pneumococcal Vaccination/Date Given: Yes - Review of Systems Constitutional: Other (Pt can't give any ROS, secondary to severe dementia) - Past Medical History Pertinent Past Medical History: Yes Neurological History: Dementia, Stroke ENT History: No Pertinent History Cardiac History: No Pertinent History Respiratory History: No Pertinent History Endocrine Medical History: No Pertinent History Musculoskeletal History: No Pertinent History GI Medical History: No Pertinent History History: No Pertinent History Psycho-Social History: Anxiety Female Reproductive Disorders: No Pertinent History 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 - Past Surgical History Past Surgical History: Yes Neuro Surgical History: No Pertinent History Cardiac: No Pertinent History Respiratory: No Pertinent History Gastrointestinal: Appendectomy Genitourinary: No Pertinent History Musculoskeletal: No Pertinent History Female Surgical History: No Pertinent History Other Surgical History: had uterus tied up - Social History Smoking Status: Never smoker Exposure to second hand smoke: No Drug Use: none Patient Lives Alone: No - Nursing Vital Signs Nursing Vital Signs: Initial Vital Signs Temperature 98.2 F 08/14/18 18:20 Pulse Rate 66 08/14/18 18:20 Respiratory Rate 18 08/14/18 18:20 Blood Pressure 199/100 08/14/18 18:20 O2 Sat by Pulse Oximetry 98 08/14/18 18:20 Pain Scale Pain Intensity 0 - Physical Exam General Appearance: no apparent distress Eye Exam: PERRL/EOMI, eyes nml inspection Ears, Nose, Throat Exam: normal ENT inspection, TMs normal, pharynx normal, moist mucous membranes Neck Exam: normal inspection, non-tender, supple, full range of motion Respiratory Exam: normal breath sounds, lungs clear, No respiratory distress Cardiovascular Exam: regular rate/rhythm, normal heart sounds, normal peripheral pulses Gastrointestinal/Abdomen Exam: soft, normal bowel sounds, No tenderness, No mass Extremity Exam: normal inspection, normal range of motion, pelvis stable Neurologic Exam: alert, systems lead II-XII nml as tested, other (Severe dementia.) SpO2: 97 - Course Nursing assessment & vital signs reviewed: Yes - CT Exams Chest CT Interpretation: Tele-radiologist Report (borderline cardiomegaly. Scattered fibrosis. Tracheomalacia) Ordered Tests: Active Orders 24 hr Category Date Time Status CHEST 1 VIEW (PORTABLE) Stat Exams 08/14/18 18:20 Completed CHEST WITHOUT CONTRAST [CT] Stat Exams 08/14/18 20:07 Completed CBC W DIFF Stat Lab 08/14/18 18:36 Completed CMP Stat Lab 08/14/18 18:36 Completed NT PRO BNP Stat Lab 08/14/18 18:36 Completed UA W/RFX UR CULTURE Stat Lab 08/14/18 19:23 Completed Lab/Rad Data: Laboratory Result Diagrams 08/14/18 18:36 08/14/18 18:36 Laboratory Results 08/14/18 08/14/18 08/14/18 Range/Units 19:23 18:36 18:36 WBC 5.6 (4.0-10.5) K/mm3 RBC 4.77 (4.1-5.4) M/mm3 Hgb 13.1 (12.0-16.0) gm/dl Hct 40.2 (35-47) % MCV 84.3 (78-100) fl MCH 27.5 (26-32) pg MCHC 32.6 (32-36) g/dl RDW 14.8 H (11.5-14.0) % Plt Count 241 (150-450) K/mm3 MPV 8.2 (6-9.5) fl Gran % 53.9 (36.0-66.0) % Eos # (Auto) 0.35 (0-0.5) Absolute Lymphs (auto) 1.35 (1.0-4.6) Absolute Monos (auto) 0.86 (0.0-1.3) Lymphocytes % 24.1 (24.0-44.0) % Monocytes % 15.3 H (0.0-12.0) % Eosinophils % 6.2 H (0.00-5.0) % Basophils % 0.5 (0.0-0.4) % Absolute Granulocytes 3.02 (1.4-6.9) Basophils # 0.03 (0-0.4) Sodium 142 (137-145) mmol/L Potassium 4.3 (3.5-5.1) mmol/L Chloride 106 (98-107) mmol/L Carbon Dioxide 26 (22-30) mmol/L Anion Gap 13.8 (5-15) MEQ/L BUN 23 H (7-17) mg/dL Creatinine 1.08 H (0.52-1.04) mg/dL Estimated GFR 50.8 ML/MIN Glucose 102 (74-106) mg/dL Calcium 9.5 (8.4-10.2) mg/dL Total Bilirubin 0.30 (0.2-1.3) mg/dL AST 16 (14-36) U/L ALT 12 (0-35) U/L Alkaline Phosphatase 102 (38-126) U/L NT-Pro-B Natriuret Pep 425 (0-1800) pg/mL Serum Total Protein 6.8 (6.3-8.2) g/dL Albumin 3.8 (3.5-5.0) g/dL Urine Color YELLOW (YELLOW) Urine Appearance CLEAR (CLEAR) Urine pH 6.0 (5-6) Ur Specific Oral 1.018 (1.005-1.025) Urine Protein NEGATIVE (Negative) Urine Ketones NEGATIVE (NEGATIVE) Urine Blood SMALL (0-5) Rafy/ul Urine Nitrite NEGATIVE (NEGATIVE) Urine Bilirubin NEGATIVE (NEGATIVE) Urine Urobilinogen NEGATIVE (0-1) mg/dL Ur Leukocyte Esterase NEGATIVE (NEGATIVE) Urine WBC (Auto) NONE (0-5) /HPF Urine RBC (Auto) 0-2 (0-2) /HPF U Epithel Cells (Auto) NONE (FEW) /HPF Urine Bacteria (Auto) NONE (NEGATIVE) /HPF Urine Mucus (Auto) SLIGHT (NEGATIVE) /HPF Urine Culture Reflexed NO (NO) Urine Glucose NEGATIVE (NEGATIVE) mg/dL - Progress Progress: unchanged Progress Note: 08/14/18 22:24 Pt had no wheeze or cough on exam. Lab work were normal, but as CXR showed trachea that is diviated, I ordered CT of chest, that showed tracheomalacia, but no PNA, CHF, or PTX. Pt is cleared for d/c to home. Will see patient in: office Counseled pt/family regarding: need for follow-up - Departure Departure Disposition: Home Clinical Impression: Cough Condition: Stable Critical Care Time: No Referrals: DOCTOR,NO FAMILY [Primary Care Provider] - Additional Instructions: Pt should f/u with her PCP.
== END 2018-08-14 22:42 | disposition home or self-care (01) ==
LOC: ED 17:49
DX: R05 Cough (principal); F03.90 Unspecified dementia, unspecified severity, without behavioral disturbance, psychotic disturbance, mood disturbance, and anxiety; Z86.73 Personal history of transient ischemic attack (TIA), and cerebral infarction without residual deficits; F41.9 Anxiety disorder, unspecified
CPT/HCPCS: 36415; 71045; 71250; 80053; 81001; 83880; 85025; 99284

== ENCOUNTER 2018-09-13 18:33 | Observation (INO) | payer MEDICARE, BC ==
[2018-09-13] MEDS ORDERED: PROTONIX 40 MG IV IV ONE ×2 (18:50→18:55)
[2018-09-13] MEDS ORDERED: Pepcid 20 MG VIAL IV ONE ×2 (18:50→18:55)
--- NOTE | 2018-09-13 18:50 | ERPHSYRPT ---
- History of Present Illness Time Seen by Provider: 09/13/18 18:47 Historian: patient, family Physician History: pt with dementia had choking after pill around noon , has eaten OK since and now swallowing OK but persistnet pain in this area; no prior heart dx or swallowing problems Timing/Duration: today Activities at Onset: other (eating) Quality: burning, sharpness Location: substernal Chest Pain Radiation: neck Severity of Pain-Max: moderate Severity of Pain-Current: moderate Modifying Factors: Improves With: eating Associated Symptoms: heartburn Prior Chest Pain/Cardiac Workup: no prior chest pain Nitro Today/Relief: no nitro taken today Aspirin Treatment Today: no aspirin today Allergies/Adverse Reactions: No Known Drug Allergies Allergy (Verified 09/13/18 18:50) Home Medications: Amlodipine Besylate 5 mg PO QAM 09/13/18 [History] Docusate Sodium [Dok] 100 mg PO QAM 09/13/18 [History] Famotidine 20 mg [Pepcid 20 MG] 40 mg PO QAM 09/13/18 [History] Sertraline HCl 50 mg [Zoloft 50 mg Tablet] 25 mg PO DAILY 09/13/18 [History] Hx Tetanus, Diphtheria Vaccination/Date Given: No Hx Influenza Vaccination/Date Given: Yes Hx Pneumococcal Vaccination/Date Given: Yes - Review of Systems Constitutional: No Fever, No Chills Eyes: No Symptoms Ears, Nose, & Throat: No Symptoms Respiratory: No Cough, No Dyspnea Cardiac: No Chest Pain, No Edema, No Syncope Abdominal/Gastrointestinal: No Abdominal Pain, No Nausea, No Vomiting, No Diarrhea Genitourinary Symptoms: No Dysuria Musculoskeletal: No Back Pain, No Neck Pain Skin: No Rash Neurological: No Dizziness, No Focal Weakness, No Sensory Changes Psychological: No Symptoms Endocrine: No Symptoms All Other Systems: Reviewed and Negative - Past Medical History Pertinent Past Medical History: Yes Neurological History: Dementia, Stroke ENT History: No Pertinent History Cardiac History: No Pertinent History Respiratory History: No Pertinent History Endocrine Medical History: No Pertinent History Musculoskeletal History: No Pertinent History GI Medical History: No Pertinent History History: No Pertinent History Psycho-Social History: Anxiety Female Reproductive Disorders: No Pertinent History 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 - Past Surgical History Past Surgical History: Yes Neuro Surgical History: No Pertinent History Cardiac: No Pertinent History Respiratory: No Pertinent History Gastrointestinal: Appendectomy Genitourinary: No Pertinent History Musculoskeletal: No Pertinent History Female Surgical History: No Pertinent History Other Surgical History: had uterus tied up - Social History Smoking Status: Never smoker Exposure to second hand smoke: No Drug Use: none Patient Lives Alone: No - Nursing Vital Signs Nursing Vital Signs: Initial Vital Signs Temperature 97.5 F 09/13/18 18:34 Pulse Rate 67 09/13/18 18:34 Respiratory Rate 27 H 09/13/18 18:34 Blood Pressure 163/81 09/13/18 18:34 O2 Sat by Pulse Oximetry 95 09/13/18 18:34 Pain Scale Pain Intensity 0 - Physical Exam General Appearance: no apparent distress, alert Eye Exam: PERRL/EOMI, eyes nml inspection Ears, Nose, Throat Exam: normal ENT inspection, moist mucous membranes Neck Exam: normal inspection, non-tender, supple, full range of motion Respiratory Exam: normal breath sounds, lungs clear, No respiratory distress Cardiovascular Exam: regular rate/rhythm, normal heart sounds Gastrointestinal/Abdomen Exam: soft, No tenderness, No mass Back Exam: normal inspection, No CVA tenderness, No vertebral tenderness Extremity Exam: normal inspection, normal range of motion Neurologic Exam: alert, oriented x 3, cooperative, normal mood/affect, sensation nml, No motor deficits Skin Exam: normal color, warm, dry Comments: 09/13/18 18:49 no change in mental status per family. - Course Nursing assessment & vital signs reviewed: Yes EKG Interpreted by Me: Sinus Rhythm, NORMAL AXIS, NORMAL INTERVALS, Non- specific ST Changes - CT Exams Soft Tissue Neck CT Interpretation: Tele-radiologist Report, DJD Chest CT Interpretation: Tele-radiologist Report, Other (STABLE MEDIASTINAL NODES ) Ordered Tests: Active Orders 24 hr Category Date Time Status Telehealth Nurse STAT Care 09/13/18 18:51 Active EKG-ER Only STAT Care 09/13/18 18:50 Active IV Insertion STAT Care 09/13/18 18:50 Active Pulse Oximetry (ED) STAT Care 09/13/18 18:50 Active CHEST WITHOUT CONTRAST [CT] Stat Exams 09/13/18 18:52 Taken NECK WO CONTRAST [CT] Stat Exams 09/13/18 18:53 Taken AMYLASE Stat Lab 09/13/18 19:07 Completed CBC W DIFF Stat Lab 09/13/18 19:07 Completed CMP Stat Lab 09/13/18 19:07 Completed D-DIMER QUANTITATION Stat Lab 09/13/18 19:07 Completed LIPASE Stat Lab 09/13/18 19:07 Completed Lactic Acid Stat Lab 09/13/18 19:13 Completed NT PRO BNP Stat Lab 09/13/18 19:07 Completed Occult Blood, Other Screening Stat Lab 09/13/18 18:50 Uncollected TROPONIN Q3H Lab 09/13/18 19:07 Completed TROPONIN Q3H Lab 09/13/18 22:12 Completed TROPONIN Q3H Lab 09/14/18 01:00 Ordered TROPONIN Q3H Lab 09/14/18 04:00 Ordered TROPONIN Q3H Lab 09/14/18 07:00 Ordered UA W/RFX UR CULTURE Stat Lab 09/13/18 20:23 Completed Medication Summary Generic Name Dose Route Start Last Admin Trade Name Freq PRN Reason Stop Dose Admin Sodium Chloride 1,000 mls @ 100 mls/hr 09/13/18 19:00 09/13/18 19:03 Sodium Chloride 0.9% 1000 Ml IV 10/13/18 18:59 100 mls/hr .Q10H SHANTE Administration Discontinued Medications Generic Name Dose Route Start Last Admin Trade Name Freq PRN Reason Stop Dose Admin Famotidine 20 mg 09/13/18 18:50 09/13/18 19:03 Pepcid 20 Mg Vial IV 09/13/18 18:51 20 mg STAT ONE Administration Famotidine Confirm 09/13/18 18:55 Pepcid 20 Mg Vial Administered 09/13/18 18:56 Dose 20 mg IV .STK-MED ONE Pantoprazole Sodium 40 mg 09/13/18 18:50 09/13/18 19:03 Protonix 40 Mg Iv IV 09/13/18 18:51 40 mg STAT ONE Administration Pantoprazole Sodium Confirm 09/13/18 18:55 Protonix 40 Mg Iv Administered 09/13/18 18:56 Dose 40 mg IV .STK-MED ONE Lab/Rad Data: Laboratory Result Diagrams 09/13/18 19:07 09/13/18 19:07 Laboratory Results 09/13/18 09/13/18 09/13/18 Range/Units 22:12 20:23 19:13 WBC (4.0-10.5) K/mm3 RBC (4.1-5.4) M/mm3 Hgb (12.0-16.0) gm/dl Hct (35-47) % MCV (78-100) fl MCH (26-32) pg MCHC (32-36) g/dl RDW (11.5-14.0) % Plt Count (150-450) K/mm3 MPV (6-9.5) fl Gran % (36.0-66.0) % Eos # (Auto) (0-0.5) Absolute Lymphs (auto) (1.0-4.6) Absolute Monos (auto) (0.0-1.3) Lymphocytes % (24.0-44.0) % Monocytes % (0.0-12.0) % Eosinophils % (0.00-5.0) % Basophils % (0.0-0.4) % Absolute Granulocytes (1.4-6.9) Basophils # (0-0.4) D-Dimer (215-500) ng/mL Sodium (137-145) mmol/L Potassium (3.5-5.1) mmol/L Chloride (98-107) mmol/L Carbon Dioxide (22-30) mmol/L Anion Gap (5-15) MEQ/L BUN (7-17) mg/dL Creatinine (0.52-1.04) mg/dL Estimated GFR ML/MIN Glucose (74-106) mg/dL Lactic Acid 1.2 (0.4-2.0) Calcium (8.4-10.2) mg/dL Total Bilirubin (0.2-1.3) mg/dL AST (14-36) U/L ALT (0-35) U/L Alkaline Phosphatase (38-126) U/L Troponin I < 0.012 (0.000-0.034) ng/mL NT-Pro-B Natriuret Pep (0-1800) pg/mL Serum Total Protein (6.3-8.2) g/dL Albumin (3.5-5.0) g/dL Amylase (30-110) U/L Lipase (23-300) U/L Urine Color YELLOW (YELLOW) Urine Appearance CLEAR (CLEAR) Urine pH 5.0 (5-6) Ur Specific [place] 1.029 (1.005-1.025) Urine Protein 30 (Negative) Urine Ketones NEGATIVE (NEGATIVE) Urine Blood NEGATIVE (0-5) Rafy/ul Urine Nitrite NEGATIVE (NEGATIVE) Urine Bilirubin NEGATIVE (NEGATIVE) Urine Urobilinogen NEGATIVE (0-1) mg/dL Ur Leukocyte Esterase NEGATIVE (NEGATIVE) Urine WBC (Auto) NONE (0-5) /HPF Urine RBC (Auto) 0-2 (0-2) /HPF U Epithel Cells (Auto) NONE (FEW) /HPF Urine Bacteria (Auto) NONE (NEGATIVE) /HPF Urine Mucus (Auto) SLIGHT (NEGATIVE) /HPF Urine Culture Reflexed NO (NO) Urine Glucose NEGATIVE (NEGATIVE) mg/dL 09/13/18 09/13/18 09/13/18 Range/Units 19:07 19:07 19:07 WBC (4.0-10.5) K/mm3 RBC (4.1-5.4) M/mm3 Hgb (12.0-16.0) gm/dl Hct (35-47) % MCV (78-100) fl MCH (26-32) pg MCHC (32-36) g/dl RDW (11.5-14.0) % Plt Count (150-450) K/mm3 MPV (6-9.5) fl Gran % (36.0-66.0) % Eos # (Auto) (0-0.5) Absolute Lymphs (auto) (1.0-4.6) Absolute Monos (auto) (0.0-1.3) Lymphocytes % (24.0-44.0) % Monocytes % (0.0-12.0) % Eosinophils % (0.00-5.0) % Basophils % (0.0-0.4) % Absolute Granulocytes (1.4-6.9) Basophils # (0-0.4) D-Dimer 1107 H* (215-500) ng/mL Sodium 141 (137-145) mmol/L Potassium 3.9 (3.5-5.1) mmol/L Chloride 110 H (98-107) mmol/L Carbon Dioxide 22 (22-30) mmol/L Anion Gap 13.2 (5-15) MEQ/L BUN 24 H (7-17) mg/dL Creatinine 1.05 H (0.52-1.04) mg/dL Estimated GFR 52.4 ML/MIN Glucose 108 H (74-106) mg/dL Lactic Acid (0.4-2.0) Calcium 9.1 (8.4-10.2) mg/dL Total Bilirubin 0.30 (0.2-1.3) mg/dL AST 12 L (14-36) U/L ALT 12 (0-35) U/L Alkaline Phosphatase 96 (38-126) U/L Troponin I < 0.012 (0.000-0.034) ng/mL NT-Pro-B Natriuret Pep 479 (0-1800) pg/mL Serum Total Protein 6.4 (6.3-8.2) g/dL Albumin 3.4 L (3.5-5.0) g/dL Amylase 98 (30-110) U/L Lipase 237 (23-300) U/L Urine Color (YELLOW) Urine Appearance (CLEAR) Urine pH (5-6) Ur Specific [place] (1.005-1.025) Urine Protein (Negative) Urine Ketones (NEGATIVE) Urine Blood (0-5) Rafy/ul Urine Nitrite (NEGATIVE) Urine Bilirubin (NEGATIVE) Urine Urobilinogen (0-1) mg/dL Ur Leukocyte Esterase (NEGATIVE) Urine WBC (Auto) (0-5) /HPF Urine RBC (Auto) (0-2) /HPF U Epithel Cells (Auto) (FEW) /HPF Urine Bacteria (Auto) (NEGATIVE) /HPF Urine Mucus (Auto) (NEGATIVE) /HPF Urine Culture Reflexed (NO) Urine Glucose (NEGATIVE) mg/dL 09/13/18 Range/Units 19:07 WBC 6.2 (4.0-10.5) K/mm3 RBC 4.31 (4.1-5.4) M/mm3 Hgb 12.1 (12.0-16.0) gm/dl Hct 37.1 (35-47) % MCV 86.1 (78-100) fl MCH 28.1 (26-32) pg MCHC 32.6 (32-36) g/dl RDW 15.5 H (11.5-14.0) % Plt Count 210 (150-450) K/mm3 MPV 8.3 (6-9.5) fl Gran % 54.3 (36.0-66.0) % Eos # (Auto) 0.22 (0-0.5) Absolute Lymphs (auto) 1.52 (1.0-4.6) Absolute Monos (auto) 1.05 (0.0-1.3) Lymphocytes % 24.6 (24.0-44.0) % Monocytes % 17.0 H (0.0-12.0) % Eosinophils % 3.6 (0.00-5.0) % Basophils % 0.5 (0.0-0.4) % Absolute Granulocytes 3.37 (1.4-6.9) Basophils # 0.03 (0-0.4) D-Dimer (215-500) ng/mL Sodium (137-145) mmol/L Potassium (3.5-5.1) mmol/L Chloride (98-107) mmol/L Carbon Dioxide (22-30) mmol/L Anion Gap (5-15) MEQ/L BUN (7-17) mg/dL Creatinine (0.52-1.04) mg/dL Estimated GFR ML/MIN Glucose (74-106) mg/dL Lactic Acid (0.4-2.0) Calcium (8.4-10.2) mg/dL Total Bilirubin (0.2-1.3) mg/dL AST (14-36) U/L ALT (0-35) U/L Alkaline Phosphatase (38-126) U/L Troponin I (0.000-0.034) ng/mL NT-Pro-B Natriuret Pep (0-1800) pg/mL Serum Total Protein (6.3-8.2) g/dL Albumin (3.5-5.0) g/dL Amylase (30-110) U/L Lipase (23-300) U/L Urine Color (YELLOW) Urine Appearance (CLEAR) Urine pH (5-6) Ur Specific [place] (1.005-1.025) Urine Protein (Negative) Urine Ketones (NEGATIVE) Urine Blood (0-5) Rafy/ul Urine Nitrite (NEGATIVE) Urine Bilirubin (NEGATIVE) Urine Urobilinogen (0-1) mg/dL Ur Leukocyte Esterase (NEGATIVE) Urine WBC (Auto) (0-5) /HPF Urine RBC (Auto) (0-2) /HPF U Epithel Cells (Auto) (FEW) /HPF Urine Bacteria (Auto) (NEGATIVE) /HPF Urine Mucus (Auto) (NEGATIVE) /HPF Urine Culture Reflexed (NO) Urine Glucose (NEGATIVE) mg/dL - Progress Progress: improved, re-examined Air Movement: good Progress Note: 09/13/18 20:09 discussed risk and benefit of CT angio with elevated D dimer with family and they are most comfortable to avoid this in view of borderline renal functions, and wish just obs at this time; 09/13/18 23:28 discussed risk /benefit of ac with lovenox with family and they perfer this and later VQ scan and also with Dr. jauregui and will place in on Obs and later scedule VQ scan when available; Blood Culture(s) Obtained: No Antibiotics given: No Discussed with : Flakito Will see patient in: hospital (observation) Counseled pt/family regarding: lab results, diagnosis, need for follow-up, rad results - Departure Departure Disposition: Observation Clinical Impression: Dementia, D-dimer, elevated, Chest pain Condition: Good Critical Care Time: No Referrals: DOCTOR,NO FAMILY [Primary Care Provider] -
[2018-09-13] MEDS ORDERED: Sodium Chloride 0.9% 1000 ML 1,000 ML ONE (18:55)
[2018-09-13] MEDS ORDERED: Sodium Chloride 0.9% 1000 ML 1,000 ML IV SCH (19:00)
[2018-09-13 19:04] LABS: BASOPHIL % 0.5 % (0.0-0.4); Basophil (Absolute #) 0.03 (0-0.4); Eosinophil % 3.6 % (0.00-5.0); Eosinophil (Absolute #) 0.22 (0-0.5); Granulocyte Absolute (ANC) 3.37 (1.4-6.9); Granulocytes % 54.3 % (36.0-66.0); Hematocrit 37.1 % (35-47); Hemoglobin 12.1 gm/dl (12.0-16.0); Lymphocyte (Absolute #) 1.52 (1.0-4.6); Lymphocytes % 24.6 % (24.0-44.0); Mean Cell Volume 86.1 fl (78-100); Mean Corpuscular Hemoglobin 28.1 pg (26-32); Mean Corpuscular Hgb Concent. 32.6 g/dl (32-36); Mean Platelet Volume 8.3 fl (6-9.5); Monocyte (Absolute #) 1.05 (0.0-1.3); Platelet Count 210 K/mm3 (150-450); Red Blood Count 4.31 M/mm3 (4.1-5.4); Red Cell Distribution Width 15.5 % (11.5-14.0); White Blood Count 6.2 K/mm3 (4.0-10.5)
[2018-09-13 19:23] LABS: ALBUMIN 3.4 g/dL (3.5-5.0); ANION GAP 13.2 MEQ/L (5-15); BILIRUBIN,TOTAL 0.3 mg/dL (0.2-1.3); Calcium 9.1 mg/dL (8.4-10.2); Creatinine 1 1.05 mg/dL (0.52-1.04); Potassium 3.9 mmol/L (3.5-5.1); Total Protein 6.4 g/dL (6.3-8.2)
[2018-09-13 20:30] LABS: Appearance CLEAR (CLEAR); Bilirubin NEGATIVE (NEGATIVE); Blood NEGATIVE Ery/ul (0-5); Glucose NEGATIVE (NEGATIVE); Ketones NEGATIVE (NEGATIVE); Leukocyte Esterase NEGATIVE (NEGATIVE); Mucus SLIGHT /HPF (NEGATIVE); Nitrite NEGATIVE (NEGATIVE); Protein,Urine Dip 30 (Negative); RBC 0-2 /HPF (0-2); Specific Gravity 1.029 (1.005-1.025); Urobilinogen NEGATIVE mg/dL (0-1)
[2018-09-14] MEDS ORDERED: NovoLIN R SQ PRN (00:07)
[2018-09-14] MEDS ORDERED: ENOXAPARIN SODIUM SQ SCH (00:07)
[2018-09-14] MEDS ORDERED: TYLENOL 325 MG PO PRN (00:07)
[2018-09-14] MEDS ORDERED: Sodium Chloride 0.9% 1000 ML 1,000 ML IV SCH (00:45)
[2018-09-14 04:23] LABS: Granulocytes % 62.4 % (36.0-66.0); Hematocrit 40.2 % (35-47); Mean Cell Volume 85.5 fl (78-100); Mean Corpuscular Hemoglobin 27.7 pg (26-32); Mean Corpuscular Hgb Concent. 32.3 g/dl (32-36); Mean Platelet Volume 8.2 fl (6-9.5); Monocytes % 11.8 % (0.0-12.0); Platelet Count 200 K/mm3 (150-450); Red Cell Distribution Width 15.3 % (11.5-14.0); White Blood Count 5.8 K/mm3 (4.0-10.5)
[2018-09-14 04:24] LABS: BASOPHIL % 0.5 % (0.0-0.4); Basophil (Absolute #) 0.03 (0-0.4); Eosinophil % 3.3 % (0.00-5.0); Eosinophil (Absolute #) 0.19 (0-0.5); Granulocyte Absolute (ANC) 3.64 (1.4-6.9); Lymphocyte (Absolute #) 1.28 (1.0-4.6); Monocyte (Absolute #) 0.69 (0.0-1.3)
[2018-09-14 04:44] LABS: Glucose 95 mg/dL (74-106); SGOT/AST 14 U/L (14-36)
[2018-09-14 04:45] LABS: SODIUM 141 mmol/L (137-145)
[2018-09-14 04:48] LABS: BLOOD UREA NITROGEN 19 mg/dL (7-17)
[2018-09-14 04:55] LABS: ALBUMIN 3.5 g/dL (3.5-5.0); ALKALINE PHOSPHATASE 94 U/L (38-126); CHLORIDE 109 mmol/L (98-107); Carbon Dioxide 23 mmol/L (22-30); Creatinine 1 0.88 mg/dL (0.52-1.04); Potassium 4.1 mmol/L (3.5-5.1); SGPT/ALT 12 U/L (0-35); TROPONIN 0.019 ng/mL (0.000-0.034); Total Protein 6.6 g/dL (6.3-8.2)
[2018-09-14 04:56] LABS: ANION GAP 13.1 MEQ/L (5-15)
--- NOTE | 2018-09-14 07:43 | XRAY ---
Indication: Choking with medication/pill. Throat and chest pain. Multiple contiguous axial images obtained through the neck without contrast as ordered. Comparison: None Bilateral dental amalgams produces beam artifact. Supra and infraglottic airway are widely patent. Normal epiglottis. Minimal right carotid and right brachiocephalic calcifications. Thyroid gland heterogeneous without focal solid/cystic mass. Underlying cervical spine intact with moderate multilevel degenerative spondylosis and subcentimeter C6 bone island. Base of the brain and lung apices are unremarkable. Impression: Multilevel degenerative spondylosis and C6 bone island. Remaining CT neck without contrast exam is negative. Comment: Preliminary interpretation was made by [facility]. No discrepancy. CTDI 9.98
--- NOTE | 2018-09-14 07:47 | XRAY ---
Indication: Choking with medication/pill. Throat and chest pain. Multiple contiguous axial images obtained through the chest without contrast as ordered. Comparison: August 14, 2018. Stable scattered fibrosis/scarring bilaterally. No suspicious pulmonary mass, infiltrate, or effusion. Heart is borderline enlarged. Aorta remains mildly arteriosclerotic without aneurysmal dilatation. Stable small mediastinal lymph node. No pathologic mediastinal lymphadenopathy. Esophagus is normal in course and caliber without focal abnormality or radiopaque foreign body. Stable small hiatal hernia. Bony thorax intact again with osteopenia and degenerative changes throughout the spine. Limited upper abdomen demonstrates stable hepatic cysts. Impression: 1. Stable borderline cardiomegaly, scattered fibrosis/scarring, hepatic cysts, and small hiatal hernia. 2. Esophagus normal in CT appearance without radiopaque foreign body. 3. Remaining CT chest without contrast exam is negative. Comment: Preliminary interpretation was made by [facility]. No discrepancy. CTDI 14.89
[2018-09-14] MEDS ORDERED: Pepcid 20 MG PO SCH (10:00)
[2018-09-14] MEDS ORDERED: NORVASC 5 MG PO SCH ×2 (10:00)
[2018-09-14] MEDS ORDERED: FEOSOL 325 MG PO SCH (10:00)
[2018-09-14] MEDS ORDERED: Colace 100 MG PO SCH (10:00)
[2018-09-14] MEDS ORDERED: ZOLOFT 50 MG TABLET PO SCH (10:00)
[2018-09-14] MEDS ORDERED: DOCUSATE SODIUM 100 MG PO SCH (10:00)
--- NOTE | 2018-09-14 10:54 | PCM.SSS ---
History of Present Illness - Chief Complaint Chief Complaint: Elevated D-Dimer; CP; Dementia History of Present Illness: is a 88 year old female pt of Dr. Fraga with dementia, HTN, and hx ischemia stroke who lives at home with 24 hour caregiver and was brought in to ER with chest pain. Earlier in the day, she had swallowed some water "the wrong way" and had coughing. Then she swallowed a pill and it got caught in her throat and she had some choking from that. Afterward she complained of chest pain. In the ER, her D-dimer was elevated to 1107. Troponin was neg and continued to be negative x 4. Her WBC were nl at 6.2 and are 5.8 this morning. Small decrease in renal function with BUN of 24 and Cr 10.5; this has improved to 19 and 0.88 this morning for eGFR > 60. UA negative. CT chest and neck, both done without contrast (after discussion with family about her slight decrease in renal function) were nonacute. The plan was to follow d-dimer and re-examine pt in the morning to determine whether to wait for a V-Q scan. She has been on lovenox 60mg SQ q 12h. Pt's blood pressure has been elevated. Family states this is usual for her when admitted and the bP decreases at home when the pt is more at ease. The d-dimer this morning is 1044. Pt is denying any pain. She is not short of breath. Oxygenation is good on room air. Plan is to discharge her to home today with no further testing; family is in agreement. - Review of Systems Cardiac: Chest Pain (as in HPI) All Other Systems: Unable due to dementia Medications & Allergies Home Medications: Home Medication List Ferrous Sulfate 325 mg [Feosol 325 mg] 325 mg PO BID #60 tablet 04/26/18 [ Rx Confirmed 09/13/18] Amlodipine Besylate 5 mg PO QAM 09/13/18 [History Confirmed 09/13/18] Docusate Sodium [Dok] 100 mg PO QAM 09/13/18 [History Confirmed 09/13/18] Famotidine 20 mg [Pepcid 20 MG] 40 mg PO QAM 09/13/18 [History Confirmed 09/13/18] Sertraline HCl 50 mg [Zoloft 50 mg Tablet] 25 mg PO DAILY 09/13/18 [History Confirmed 09/13/18] Allergies/Adverse Reactions: Allergies Allergy/AdvReac Type Severity Reaction Status Date / Time No Known Drug Allergies Allergy Verified 09/13/18 18:50 - Past Medical History Past Medical History: Yes Neurological History: Dementia, Stroke ENT History: No Pertinent History Cardiac History: No Pertinent History Respiratory History: No Pertinent History Endocrine Medical History: No Pertinent History Musculoskelatal History: No Pertinent History GI Medical History: No Pertinent History History: No Pertinent History Pyscho-Social History: Anxiety Reproductive Disorders: No Pertinent History 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 - Female History Are you now?: No - Past Surgical History Past Surgical History: Yes Neuro Surgical History: No Pertinent History Cardiac History: No Pertinent History Respiratory Surgery: No Pertinent History GI Surgical History: Appendectomy Genitourinary Surgical Hx: No Pertinent History Musculskeletal Surgical Hx: No Pertinent History Female Surgical History: No Pertinent History Other Surgical History: had uterus tied up - Social History Smoking Status: Never smoker Exposure to second hand smoke: No Alcohol: None Drug Use: none - Physical Exam Vital Signs: Vital Signs - 24 hr Temp Pulse Pulse Resp BP Pulse Ox 09/14/18 07:56 97.3 F 65 18 224/93 97 09/14/18 04:05 97.7 F 66 16 200/91 96 09/14/18 00:35 97.3 F 61 16 197/86 96 09/13/18 23:40 63 18 213/84 98 09/13/18 22:40 64 18 194/99 98 09/13/18 21:40 62 18 176/95 98 09/13/18 20:40 66 18 97 09/13/18 19:23 63 18 165/97 98 09/13/18 18:55 97 09/13/18 18:34 97.5 F 68 67 27 H 163/81 95 General Appearance: no apparent distress, alert Neurologic Exam: cooperative, disoriented (not oriented to place or time) Eye Exam: eyes nml inspection Ears, Nose, Throat Exam: moist mucous membranes Neck Exam: normal inspection, non-tender, No lymphadenopathy Respiratory Exam: normal breath sounds, lungs clear, No crackles/rales, No rhonchi, No wheezing Cardiovascular Exam: regular rate/rhythm, normal heart sounds, No murmur Gastrointestinal/Abdomen Exam: soft, normal bowel sounds, No tenderness, No distention, No mass, No guarding, No rebound Back Exam: normal inspection, No rash Extremity Exam: normal inspection, No pedal edema, No swelling Skin Exam: normal color, warm, dry, No rash Results - Labs Lab/Micro Results: Lab Results-Last 24 Hours 09/13/18 09/13/18 09/13/18 Range/Units 19:07 19:07 19:07 WBC 6.2 (4.0-10.5) K/mm3 RBC 4.31 (4.1-5.4) M/mm3 Hgb 12.1 (12.0-16.0) gm/dl Hct 37.1 (35-47) % MCV 86.1 (78-100) fl MCH 28.1 (26-32) pg MCHC 32.6 (32-36) g/dl RDW 15.5 H (11.5-14.0) % Plt Count 210 (150-450) K/mm3 MPV 8.3 (6-9.5) fl Gran % 54.3 (36.0-66.0) % Eos # (Auto) 0.22 (0-0.5) Absolute Lymphs (auto) 1.52 (1.0-4.6) Absolute Monos (auto) 1.05 (0.0-1.3) Lymphocytes % 24.6 (24.0-44.0) % Monocytes % 17.0 H (0.0-12.0) % Eosinophils % 3.6 (0.00-5.0) % Basophils % 0.5 (0.0-0.4) % Absolute Granulocytes 3.37 (1.4-6.9) Basophils # 0.03 (0-0.4) D-Dimer 1107 H* (215-500) ng/mL Sodium 141 (137-145) mmol/L Potassium 3.9 (3.5-5.1) mmol/L Chloride 110 H (98-107) mmol/L Carbon Dioxide 22 (22-30) mmol/L Anion Gap 13.2 (5-15) MEQ/L BUN 24 H (7-17) mg/dL Creatinine 1.05 H (0.52-1.04) mg/dL Estimated GFR 52.4 ML/MIN Glucose 108 H (74-106) mg/dL Lactic Acid (0.4-2.0) Calcium 9.1 (8.4-10.2) mg/dL Total Bilirubin 0.30 (0.2-1.3) mg/dL AST 12 L (14-36) U/L ALT 12 (0-35) U/L Alkaline Phosphatase 96 (38-126) U/L Troponin I (0.000-0.034) ng/mL NT-Pro-B Natriuret Pep 479 (0-1800) pg/mL Serum Total Protein 6.4 (6.3-8.2) g/dL Albumin 3.4 L (3.5-5.0) g/dL Prealbumin (17.6-36.0) mg/dL Amylase 98 (30-110) U/L Lipase 237 (23-300) U/L Urine Color (YELLOW) Urine Appearance (CLEAR) Urine pH (5-6) Ur Specific Greer (1.005-1.025) Urine Protein (Negative) Urine Ketones (NEGATIVE) Urine Blood (0-5) Rafy/ul Urine Nitrite (NEGATIVE) Urine Bilirubin (NEGATIVE) Urine Urobilinogen (0-1) mg/dL Ur Leukocyte Esterase (NEGATIVE) Urine WBC (Auto) (0-5) /HPF Urine RBC (Auto) (0-2) /HPF U Epithel Cells (Auto) (FEW) /HPF Urine Bacteria (Auto) (NEGATIVE) /HPF Urine Mucus (Auto) (NEGATIVE) /HPF Urine Culture Reflexed (NO) Urine Glucose (NEGATIVE) mg/dL 09/13/18 09/13/18 09/13/18 Range/Units 19:07 19:13 20:23 WBC (4.0-10.5) K/mm3 RBC (4.1-5.4) M/mm3 Hgb (12.0-16.0) gm/dl Hct (35-47) % MCV (78-100) fl MCH (26-32) pg MCHC (32-36) g/dl RDW (11.5-14.0) % Plt Count (150-450) K/mm3 MPV (6-9.5) fl Gran % (36.0-66.0) % Eos # (Auto) (0-0.5) Absolute Lymphs (auto) (1.0-4.6) Absolute Monos (auto) (0.0-1.3) Lymphocytes % (24.0-44.0) % Monocytes % (0.0-12.0) % Eosinophils % (0.00-5.0) % Basophils % (0.0-0.4) % Absolute Granulocytes (1.4-6.9) Basophils # (0-0.4) D-Dimer (215-500) ng/mL Sodium (137-145) mmol/L Potassium (3.5-5.1) mmol/L Chloride (98-107) mmol/L Carbon Dioxide (22-30) mmol/L Anion Gap (5-15) MEQ/L BUN (7-17) mg/dL Creatinine (0.52-1.04) mg/dL Estimated GFR ML/MIN Glucose (74-106) mg/dL Lactic Acid 1.2 (0.4-2.0) Calcium (8.4-10.2) mg/dL Total Bilirubin (0.2-1.3) mg/dL AST (14-36) U/L ALT (0-35) U/L Alkaline Phosphatase (38-126) U/L Troponin I < 0.012 (0.000-0.034) ng/mL NT-Pro-B Natriuret Pep (0-1800) pg/mL Serum Total Protein (6.3-8.2) g/dL Albumin (3.5-5.0) g/dL Prealbumin (17.6-36.0) mg/dL Amylase (30-110) U/L Lipase (23-300) U/L Urine Color YELLOW (YELLOW) Urine Appearance CLEAR (CLEAR) Urine pH 5.0 (5-6) Ur Specific Greer 1.029 (1.005-1.025) Urine Protein 30 (Negative) Urine Ketones NEGATIVE (NEGATIVE) Urine Blood NEGATIVE (0-5) Rafy/ul Urine Nitrite NEGATIVE (NEGATIVE) Urine Bilirubin NEGATIVE (NEGATIVE) Urine Urobilinogen NEGATIVE (0-1) mg/dL Ur Leukocyte Esterase NEGATIVE (NEGATIVE) Urine WBC (Auto) NONE (0-5) /HPF Urine RBC (Auto) 0-2 (0-2) /HPF U Epithel Cells (Auto) NONE (FEW) /HPF Urine Bacteria (Auto) NONE (NEGATIVE) /HPF Urine Mucus (Auto) SLIGHT (NEGATIVE) /HPF Urine Culture Reflexed NO (NO) Urine Glucose NEGATIVE (NEGATIVE) mg/dL 09/13/18 09/14/18 09/14/18 Range/Units 22:12 01:54 04:22 WBC 5.8 (4.0-10.5) K/mm3 RBC 4.70 (4.1-5.4) M/mm3 Hgb 13.0 (12.0-16.0) gm/dl Hct 40.2 (35-47) % MCV 85.5 (78-100) fl MCH 27.7 (26-32) pg MCHC 32.3 (32-36) g/dl RDW 15.3 H (11.5-14.0) % Plt Count 200 (150-450) K/mm3 MPV 8.2 (6-9.5) fl Gran % 62.4 (36.0-66.0) % Eos # (Auto) 0.19 (0-0.5) Absolute Lymphs (auto) 1.28 (1.0-4.6) Absolute Monos (auto) 0.69 (0.0-1.3) Lymphocytes % 22.0 L (24.0-44.0) % Monocytes % 11.8 (0.0-12.0) % Eosinophils % 3.3 (0.00-5.0) % Basophils % 0.5 (0.0-0.4) % Absolute Granulocytes 3.64 (1.4-6.9) Basophils # 0.03 (0-0.4) D-Dimer (215-500) ng/mL Sodium (137-145) mmol/L Potassium (3.5-5.1) mmol/L Chloride (98-107) mmol/L Carbon Dioxide (22-30) mmol/L Anion Gap (5-15) MEQ/L BUN (7-17) mg/dL Creatinine (0.52-1.04) mg/dL Estimated GFR ML/MIN Glucose (74-106) mg/dL Lactic Acid (0.4-2.0) Calcium (8.4-10.2) mg/dL Total Bilirubin (0.2-1.3) mg/dL AST (14-36) U/L ALT (0-35) U/L Alkaline Phosphatase (38-126) U/L Troponin I < 0.012 0.016 (0.000-0.034) ng/mL NT-Pro-B Natriuret Pep (0-1800) pg/mL Serum Total Protein (6.3-8.2) g/dL Albumin (3.5-5.0) g/dL Prealbumin (17.6-36.0) mg/dL Amylase (30-110) U/L Lipase (23-300) U/L Urine Color (YELLOW) Urine Appearance (CLEAR) Urine pH (5-6) Ur Specific Greer (1.005-1.025) Urine Protein (Negative) Urine Ketones (NEGATIVE) Urine Blood (0-5) Rafy/ul Urine Nitrite (NEGATIVE) Urine Bilirubin (NEGATIVE) Urine Urobilinogen (0-1) mg/dL Ur Leukocyte Esterase (NEGATIVE) Urine WBC (Auto) (0-5) /HPF Urine RBC (Auto) (0-2) /HPF U Epithel Cells (Auto) (FEW) /HPF Urine Bacteria (Auto) (NEGATIVE) /HPF Urine Mucus (Auto) (NEGATIVE) /HPF Urine Culture Reflexed (NO) Urine Glucose (NEGATIVE) mg/dL 09/14/18 09/14/18 09/14/18 Range/Units 04:22 04:22 07:25 WBC (4.0-10.5) K/mm3 RBC (4.1-5.4) M/mm3 Hgb (12.0-16.0) gm/dl Hct (35-47) % MCV (78-100) fl MCH (26-32) pg MCHC (32-36) g/dl RDW (11.5-14.0) % Plt Count (150-450) K/mm3 MPV (6-9.5) fl Gran % (36.0-66.0) % Eos # (Auto) (0-0.5) Absolute Lymphs (auto) (1.0-4.6) Absolute Monos (auto) (0.0-1.3) Lymphocytes % (24.0-44.0) % Monocytes % (0.0-12.0) % Eosinophils % (0.00-5.0) % Basophils % (0.0-0.4) % Absolute Granulocytes (1.4-6.9) Basophils # (0-0.4) D-Dimer 1044 H* (215-500) ng/mL Sodium 141 (137-145) mmol/L Potassium 4.1 (3.5-5.1) mmol/L Chloride 109 H (98-107) mmol/L Carbon Dioxide 23 (22-30) mmol/L Anion Gap 13.1 (5-15) MEQ/L BUN 19 H (7-17) mg/dL Creatinine 0.88 (0.52-1.04) mg/dL Estimated GFR > 60.0 ML/MIN Glucose 95 (74-106) mg/dL Lactic Acid (0.4-2.0) Calcium 9.0 (8.4-10.2) mg/dL Total Bilirubin 0.50 (0.2-1.3) mg/dL AST 14 (14-36) U/L ALT 12 (0-35) U/L Alkaline Phosphatase 94 (38-126) U/L Troponin I 0.019 0.018 (0.000-0.034) ng/mL NT-Pro-B Natriuret Pep (0-1800) pg/mL Serum Total Protein 6.6 (6.3-8.2) g/dL Albumin 3.5 (3.5-5.0) g/dL Prealbumin 19.70 (17.6-36.0) mg/dL Amylase (30-110) U/L Lipase (23-300) U/L Urine Color (YELLOW) Urine Appearance (CLEAR) Urine pH (5-6) Ur Specific Greer (1.005-1.025) Urine Protein (Negative) Urine Ketones (NEGATIVE) Urine Blood (0-5) Rafy/ul Urine Nitrite (NEGATIVE) Urine Bilirubin (NEGATIVE) Urine Urobilinogen (0-1) mg/dL Ur Leukocyte Esterase (NEGATIVE) Urine WBC (Auto) (0-5) /HPF Urine RBC (Auto) (0-2) /HPF U Epithel Cells (Auto) (FEW) /HPF Urine Bacteria (Auto) (NEGATIVE) /HPF Urine Mucus (Auto) (NEGATIVE) /HPF Urine Culture Reflexed (NO) Urine Glucose (NEGATIVE) mg/dL - Radiology Impressions Radiology Exams & Impressions: Radiology Procedures Category Date Time Status CHEST WITHOUT CONTRAST [CT] Stat Exams 09/13/18 18:52 Completed NECK WO CONTRAST [CT] Stat Exams 09/13/18 18:53 Completed Assessment/Plan (1) Chest pain Current Visit: Yes Status: Acute Code(s): R07.9 - CHEST PAIN, UNSPECIFIED (2) D-dimer, elevated Current Visit: Yes Status: Acute Code(s): R79.89 - OTHER SPECIFIED ABNORMAL FINDINGS OF BLOOD CHEMISTRY (3) Dementia Current Visit: Yes Status: Chronic Qualifiers: Code(s): F03.90 - UNSPECIFIED DEMENTIA WITHOUT BEHAVIORAL DISTURBANCE (4) Elevated blood pressure reading Current Visit: No Status: Acute Assessment & Plan: Family has stated to RN that pt gets agitated in the hospital and the blood pressure is always very elevated here compared with at home. She does complain of pain when the cuff inflates. Code(s): R03.0 - ELEVATED BLOOD-PRESSURE READING, W/O DIAGNOSIS OF HTN Hospital Summary - Hospital Course Hospital Course: Pt is 88 yo female pt of Dr. Fraga with dementia who was admitted for CP after choking on a pill. D-dimer elevated but was trending down the next morning; she was asx the next day and was decided not to do further testing. CT chest/neck without contrast negative for foreign body. Pt discharged to home with family. - Vitals & Intake/Output Vital Signs: Vital Signs Temperature 97.3 F 09/14/18 07:56 Pulse Rate 65 09/14/18 07:56 Respiratory Rate 18 09/14/18 07:56 Blood Pressure 224/93 09/14/18 07:56 O2 Sat by Pulse Oximetry 97 09/14/18 07:56 Intake & Output: Intake & Output 09/11/18 09/12/18 09/13/18 09/14/18 11:59 11:59 11:59 11:59 Intake Total 1248 Balance 1248 Weight 62.1 kg - Lab Result Diagrams: 09/14/18 04:22 09/14/18 04:22 Lab Results-Last 24 Hrs: Lab Results-Last 24 Hours 09/13/18 09/13/18 09/13/18 Range/Units 19:07 19:07 19:07 WBC 6.2 (4.0-10.5) K/mm3 RBC 4.31 (4.1-5.4) M/mm3 Hgb 12.1 (12.0-16.0) gm/dl Hct 37.1 (35-47) % MCV 86.1 (78-100) fl MCH 28.1 (26-32) pg MCHC 32.6 (32-36) g/dl RDW 15.5 H (11.5-14.0) % Plt Count 210 (150-450) K/mm3 MPV 8.3 (6-9.5) fl Gran % 54.3 (36.0-66.0) % Eos # (Auto) 0.22 (0-0.5) Absolute Lymphs (auto) 1.52 (1.0-4.6) Absolute Monos (auto) 1.05 (0.0-1.3) Lymphocytes % 24.6 (24.0-44.0) % Monocytes % 17.0 H (0.0-12.0) % Eosinophils % 3.6 (0.00-5.0) % Basophils % 0.5 (0.0-0.4) % Absolute Granulocytes 3.37 (1.4-6.9) Basophils # 0.03 (0-0.4) D-Dimer 1107 H* (215-500) ng/mL Sodium 141 (137-145) mmol/L Potassium 3.9 (3.5-5.1) mmol/L Chloride 110 H (98-107) mmol/L Carbon Dioxide 22 (22-30) mmol/L Anion Gap 13.2 (5-15) MEQ/L BUN 24 H (7-17) mg/dL Creatinine 1.05 H (0.52-1.04) mg/dL Estimated GFR 52.4 ML/MIN Glucose 108 H (74-106) mg/dL Lactic Acid (0.4-2.0) Calcium 9.1 (8.4-10.2) mg/dL Total Bilirubin 0.30 (0.2-1.3) mg/dL AST 12 L (14-36) U/L ALT 12 (0-35) U/L Alkaline Phosphatase 96 (38-126) U/L Troponin I (0.000-0.034) ng/mL NT-Pro-B Natriuret Pep 479 (0-1800) pg/mL Serum Total Protein 6.4 (6.3-8.2) g/dL Albumin 3.4 L (3.5-5.0) g/dL Prealbumin (17.6-36.0) mg/dL Amylase 98 (30-110) U/L Lipase 237 (23-300) U/L Urine Color (YELLOW) Urine Appearance (CLEAR) Urine pH (5-6) Ur Specific Greer (1.005-1.025) Urine Protein (Negative) Urine Ketones (NEGATIVE) Urine Blood (0-5) Rafy/ul Urine Nitrite (NEGATIVE) Urine Bilirubin (NEGATIVE) Urine Urobilinogen (0-1) mg/dL Ur Leukocyte Esterase (NEGATIVE) Urine WBC (Auto) (0-5) /HPF Urine RBC (Auto) (0-2) /HPF U Epithel Cells (Auto) (FEW) /HPF Urine Bacteria (Auto) (NEGATIVE) /HPF Urine Mucus (Auto) (NEGATIVE) /HPF Urine Culture Reflexed (NO) Urine Glucose (NEGATIVE) mg/dL 09/13/18 09/13/18 09/13/18 Range/Units 19:07 19:13 20:23 WBC (4.0-10.5) K/mm3 RBC (4.1-5.4) M/mm3 Hgb (12.0-16.0) gm/dl Hct (35-47) % MCV (78-100) fl MCH (26-32) pg MCHC (32-36) g/dl RDW (11.5-14.0) % Plt Count (150-450) K/mm3 MPV (6-9.5) fl Gran % (36.0-66.0) % Eos # (Auto) (0-0.5) Absolute Lymphs (auto) (1.0-4.6) Absolute Monos (auto) (0.0-1.3) Lymphocytes % (24.0-44.0) % Monocytes % (0.0-12.0) % Eosinophils % (0.00-5.0) % Basophils % (0.0-0.4) % Absolute Granulocytes (1.4-6.9) Basophils # (0-0.4) D-Dimer (215-500) ng/mL Sodium (137-145) mmol/L Potassium (3.5-5.1) mmol/L Chloride (98-107) mmol/L Carbon Dioxide (22-30) mmol/L Anion Gap (5-15) MEQ/L BUN (7-17) mg/dL Creatinine (0.52-1.04) mg/dL Estimated GFR ML/MIN Glucose (74-106) mg/dL Lactic Acid 1.2 (0.4-2.0) Calcium (8.4-10.2) mg/dL Total Bilirubin (0.2-1.3) mg/dL AST (14-36) U/L ALT (0-35) U/L Alkaline Phosphatase (38-126) U/L Troponin I < 0.012 (0.000-0.034) ng/mL NT-Pro-B Natriuret Pep (0-1800) pg/mL Serum Total Protein (6.3-8.2) g/dL Albumin (3.5-5.0) g/dL Prealbumin (17.6-36.0) mg/dL Amylase (30-110) U/L Lipase (23-300) U/L Urine Color YELLOW (YELLOW) Urine Appearance CLEAR (CLEAR) Urine pH 5.0 (5-6) Ur Specific Greer 1.029 (1.005-1.025) Urine Protein 30 (Negative) Urine Ketones NEGATIVE (NEGATIVE) Urine Blood NEGATIVE (0-5) Rafy/ul Urine Nitrite NEGATIVE (NEGATIVE) Urine Bilirubin NEGATIVE (NEGATIVE) Urine Urobilinogen NEGATIVE (0-1) mg/dL Ur Leukocyte Esterase NEGATIVE (NEGATIVE) Urine WBC (Auto) NONE (0-5) /HPF Urine RBC (Auto) 0-2 (0-2) /HPF U Epithel Cells (Auto) NONE (FEW) /HPF Urine Bacteria (Auto) NONE (NEGATIVE) /HPF Urine Mucus (Auto) SLIGHT (NEGATIVE) /HPF Urine Culture Reflexed NO (NO) Urine Glucose NEGATIVE (NEGATIVE) mg/dL 09/13/18 09/14/18 09/14/18 Range/Units 22:12 01:54 04:22 WBC 5.8 (4.0-10.5) K/mm3 RBC 4.70 (4.1-5.4) M/mm3 Hgb 13.0 (12.0-16.0) gm/dl Hct 40.2 (35-47) % MCV 85.5 (78-100) fl MCH 27.7 (26-32) pg MCHC 32.3 (32-36) g/dl RDW 15.3 H (11.5-14.0) % Plt Count 200 (150-450) K/mm3 MPV 8.2 (6-9.5) fl Gran % 62.4 (36.0-66.0) % Eos # (Auto) 0.19 (0-0.5) Absolute Lymphs (auto) 1.28 (1.0-4.6) Absolute Monos (auto) 0.69 (0.0-1.3) Lymphocytes % 22.0 L (24.0-44.0) % Monocytes % 11.8 (0.0-12.0) % Eosinophils % 3.3 (0.00-5.0) % Basophils % 0.5 (0.0-0.4) % Absolute Granulocytes 3.64 (1.4-6.9) Basophils # 0.03 (0-0.4) D-Dimer (215-500) ng/mL Sodium (137-145) mmol/L Potassium (3.5-5.1) mmol/L Chloride (98-107) mmol/L Carbon Dioxide (22-30) mmol/L Anion Gap (5-15) MEQ/L BUN (7-17) mg/dL Creatinine (0.52-1.04) mg/dL Estimated GFR ML/MIN Glucose (74-106) mg/dL Lactic Acid (0.4-2.0) Calcium (8.4-10.2) mg/dL Total Bilirubin (0.2-1.3) mg/dL AST (14-36) U/L ALT (0-35) U/L Alkaline Phosphatase (38-126) U/L Troponin I < 0.012 0.016 (0.000-0.034) ng/mL NT-Pro-B Natriuret Pep (0-1800) pg/mL Serum Total Protein (6.3-8.2) g/dL Albumin (3.5-5.0) g/dL Prealbumin (17.6-36.0) mg/dL Amylase (30-110) U/L Lipase (23-300) U/L Urine Color (YELLOW) Urine Appearance (CLEAR) Urine pH (5-6) Ur Specific Greer (1.005-1.025) Urine Protein (Negative) Urine Ketones (NEGATIVE) Urine Blood (0-5) Rafy/ul Urine Nitrite (NEGATIVE) Urine Bilirubin (NEGATIVE) Urine Urobilinogen (0-1) mg/dL Ur Leukocyte Esterase (NEGATIVE) Urine WBC (Auto) (0-5) /HPF Urine RBC (Auto) (0-2) /HPF U Epithel Cells (Auto) (FEW) /HPF Urine Bacteria (Auto) (NEGATIVE) /HPF Urine Mucus (Auto) (NEGATIVE) /HPF Urine Culture Reflexed (NO) Urine Glucose (NEGATIVE) mg/dL 09/14/18 09/14/18 09/14/18 Range/Units 04:22 04:22 07:25 WBC (4.0-10.5) K/mm3 RBC (4.1-5.4) M/mm3 Hgb (12.0-16.0) gm/dl Hct (35-47) % MCV (78-100) fl MCH (26-32) pg MCHC (32-36) g/dl RDW (11.5-14.0) % Plt Count (150-450) K/mm3 MPV (6-9.5) fl Gran % (36.0-66.0) % Eos # (Auto) (0-0.5) Absolute Lymphs (auto) (1.0-4.6) Absolute Monos (auto) (0.0-1.3) Lymphocytes % (24.0-44.0) % Monocytes % (0.0-12.0) % Eosinophils % (0.00-5.0) % Basophils % (0.0-0.4) % Absolute Granulocytes (1.4-6.9) Basophils # (0-0.4) D-Dimer 1044 H* (215-500) ng/mL Sodium 141 (137-145) mmol/L Potassium 4.1 (3.5-5.1) mmol/L Chloride 109 H (98-107) mmol/L Carbon Dioxide 23 (22-30) mmol/L Anion Gap 13.1 (5-15) MEQ/L BUN 19 H (7-17) mg/dL Creatinine 0.88 (0.52-1.04) mg/dL Estimated GFR > 60.0 ML/MIN Glucose 95 (74-106) mg/dL Lactic Acid (0.4-2.0) Calcium 9.0 (8.4-10.2) mg/dL Total Bilirubin 0.50 (0.2-1.3) mg/dL AST 14 (14-36) U/L ALT 12 (0-35) U/L Alkaline Phosphatase 94 (38-126) U/L Troponin I 0.019 0.018 (0.000-0.034) ng/mL NT-Pro-B Natriuret Pep (0-1800) pg/mL Serum Total Protein 6.6 (6.3-8.2) g/dL Albumin 3.5 (3.5-5.0) g/dL Prealbumin 19.70 (17.6-36.0) mg/dL Amylase (30-110) U/L Lipase (23-300) U/L Urine Color (YELLOW) Urine Appearance (CLEAR) Urine pH (5-6) Ur Specific Greer (1.005-1.025) Urine Protein (Negative) Urine Ketones (NEGATIVE) Urine Blood (0-5) Rafy/ul Urine Nitrite (NEGATIVE) Urine Bilirubin (NEGATIVE) Urine Urobilinogen (0-1) mg/dL Ur Leukocyte Esterase (NEGATIVE) Urine WBC (Auto) (0-5) /HPF Urine RBC (Auto) (0-2) /HPF U Epithel Cells (Auto) (FEW) /HPF Urine Bacteria (Auto) (NEGATIVE) /HPF Urine Mucus (Auto) (NEGATIVE) /HPF Urine Culture Reflexed (NO) Urine Glucose (NEGATIVE) mg/dL - Radiology Exams Ordered Rad Exams-Entire Visit: Radiology Procedures Category Date Time Status CHEST WITHOUT CONTRAST [CT] Stat Exams 09/13/18 18:52 Completed NECK WO CONTRAST [CT] Stat Exams 09/13/18 18:53 Completed - Discharge Disposition: Home, Self-Care Condition: Good Prescriptions: Continue Ferrous Sulfate 325 mg [Feosol 325 mg] 325 mg PO BID #60 tablet Famotidine 20 mg [Pepcid 20 MG] 40 mg PO QAM Sertraline HCl 50 mg [Zoloft 50 mg Tablet] 25 mg PO DAILY Amlodipine Besylate 5 mg PO QAM Docusate Sodium [Dok] 100 mg PO QAM Follow up with: ROSA MARIA FRAGA [Primary Care Provider] - 1 Week
[2018-09-14 12:18] VITALS: BP 188/86; PULSE 70; O2SAT 96
== END 2018-09-14 12:03 | disposition home or self-care (01) ==
LOC: ED 18:33 → MED SURG 09-14 00:05
PROVIDERS: ADMIT Family Medicine; ATTEND Family Medicine
DX: R07.9 Chest pain, unspecified (principal); R79.1 Abnormal coagulation profile; F03.90 Unspecified dementia, unspecified severity, without behavioral disturbance, psychotic disturbance, mood disturbance, and anxiety; R03.0 Elevated blood-pressure reading, without diagnosis of hypertension; Z86.73 Personal history of transient ischemic attack (TIA), and cerebral infarction without residual deficits; Z79.899 Other long term (current) drug therapy
CPT/HCPCS: 36000; 36415; 70490; 71250; 80053; 81001; 82150; 83605; 83690; 83880; 84134; 84484; 85025; 85379; 93005; 93041; 93268; 96374; 96375; 99285; G0378; 96360; 96361; J1650; A9270-GY

== ENCOUNTER 2018-10-26 20:08 | Emergency (ER) | payer MEDICARE, BC ==
--- NOTE | 2018-10-26 20:10 | ERPHSYRPT ---
- History of Present Illness Time Seen by Provider: 10/26/18 20:10 Source: patient, family Exam Limitations: clinical condition Physician History: 88 y/o white female with h/o dementia, stroke and anxiety lives 11/11 with caregiver. family brought pt into ED because of tender lump right post scalp. no loc. no anticoag tx. no other area of pain. Occurred: just prior to arrival Reason for Fall: slipped Injuries/Pain Location: head Loss of Consciousness: no loss of consciousness Quality: aching Severity of Pain-Max: mild Severity of Pain-Current: mild Associated Symptoms (Fall): No abdominal pain, No back pain, No dizziness, No extremity injury, No headache, No neck pain Allergies/Adverse Reactions: No Known Drug Allergies Allergy (Verified 10/26/18 20:44) Home Medications: Amlodipine Besylate 5 mg PO QAM 09/13/18 [History] Docusate Sodium [Dok] 100 mg PO QAM 09/13/18 [History] Famotidine 20 mg [Pepcid 20 MG] 40 mg PO QAM 09/13/18 [History] Sertraline HCl 50 mg [Zoloft 50 mg Tablet] 25 mg PO DAILY 09/13/18 [History] Hx Tetanus, Diphtheria Vaccination/Date Given: No Hx Influenza Vaccination/Date Given: Yes Hx Pneumococcal Vaccination/Date Given: Yes - Review of Systems Constitutional: No Symptoms Eyes: No Symptoms Ears, Nose, & Throat: No Symptoms Respiratory: No Symptoms Cardiac: No Symptoms Abdominal/Gastrointestinal: No Symptoms Genitourinary Symptoms: No Symptoms Musculoskeletal: No Symptoms Skin: No Symptoms Neurological: Headache (tenderness at right post lump) Psychological: No Symptoms Endocrine: No Symptoms Hematologic/Lymphatic: No Symptoms Immunological/Allergic: No Symptoms All Other Systems: Reviewed and Negative - Past Medical History Pertinent Past Medical History: Yes Neurological History: Dementia, Stroke ENT History: No Pertinent History Cardiac History: No Pertinent History Respiratory History: No Pertinent History Endocrine Medical History: No Pertinent History Musculoskeletal History: No Pertinent History GI Medical History: No Pertinent History History: No Pertinent History Psycho-Social History: Anxiety Female Reproductive Disorders: No Pertinent History 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 - Past Surgical History Past Surgical History: Yes Neuro Surgical History: No Pertinent History Cardiac: No Pertinent History Respiratory: No Pertinent History Gastrointestinal: Appendectomy Genitourinary: No Pertinent History Musculoskeletal: No Pertinent History Female Surgical History: No Pertinent History Other Surgical History: had uterus tied up - Social History Smoking Status: Never smoker Exposure to second hand smoke: No Drug Use: none Patient Lives Alone: No - Nursing Vital Signs Nursing Vital Signs: Initial Vital Signs Temperature 98.0 F 10/26/18 20:46 Pulse Rate 59 L 10/26/18 20:46 Respiratory Rate 18 10/26/18 20:46 Blood Pressure 153/69 10/26/18 20:46 O2 Sat by Pulse Oximetry 97 10/26/18 20:46 Pain Scale Pain Intensity 0 - Seminary Coma Score Best Eye Response (Chris): (4) open spontaneously Best Verbal Response (Seminary): (4) confused conversation Best Motor Response (Seminary): (6) obeys commands Seminary Total: 14 - Physical Exam General Appearance: alert, anxiety Head Injury: contusions, swelling Eye Exam: PERRL/EOMI, eyes nml inspection ENT Exam: airway nml Neck Exam: supple, trachea midline, full range of motion, normal alignment, normal inspection, No focal neuro deficit Respiratory/Chest Exam: No chest tenderness Gastrointestinal Exam: No tenderness Rectal Exam: not done Back Exam: normal inspection, normal range of motion, No CVA tenderness, No vertebral tenderness Extremity Exam: normal inspection, normal range of motion, pelvis stable Neurologic Exam: alert, cooperative, confusion (chronic dementia) Skin Exam: normal color, warm, dry SpO2 Interpretation: normal O2 Delivery: Room Air Ordered Tests: Active Orders 24 hr Category Date Time Status HEAD WITHOUT CONTRAST [CT] Stat Exams 10/26/18 21:05 Ordered - Progress Progress: unchanged, re-examined Progress Note: 10/26/18 21:58 ct head- no acute intracranial process. no fx. Counseled pt/family regarding: diagnosis, need for follow-up, rad results - Departure Departure Disposition: Home Clinical Impression: Head injury due to trauma Condition: Stable Critical Care Time: No Referrals: ROSA MARIA RODRIGUEZ [ACTIVE STAFF] - Additional Instructions: ice pack to area 3 times daily. tylenol for pain. follow up with primary doctor as needed.
[2018-10-26 20:53] VITALS: PULSE 59
[2018-10-26 22:05] VITALS: BP 133/60; O2SAT 95
[2018-10-26] MEDS ORDERED: NORCO 5/325 MG PO ONE (22:25)
[2018-10-26] MEDS ORDERED: NORCO 5/325 MG ONE (22:39)
--- NOTE | 2018-10-27 10:38 | XRAY ---
Exam: CT of the head without IV contrast from 10/26/2018. CTDI: 59.64 Comparison: CT of the head without IV contrast from 01/23/2018. Indication: 88-year-old female with fall/trauma to head, hematoma on back of head, history of dementia, history of prior CVA. Technique: Non-IV contrast axial images were obtained through the brain. Reconstructed coronal and sagittal images were created and reviewed. Findings: The ventricles and the cortical sulci/cisterns are again noted to be diffusely prominent consistent with age-appropriate atrophic changes. No focal mass effect or midline shift is seen. There is patchy decreased attenuation within the periventricular and subcortical white matter, likely due to chronic microvascular disease. This is unchanged. There is either a prominent perivascular space or tiny lacunar infarct within the internal capsule on the right on axial image #21. No new territorial low attenuation infarct is seen. I see no acute intracranial hemorrhage or abnormal extra-axial fluid collection. Extensive vascular calcification is seen within both distal internal carotid arteries representing no change. The calvarium of the skull reveals no fracture or other significant focal bone lesion. There is some mild increased attenuation of the scalp soft tissues posteriorly near the midline and to the right of midline. Correlate clinically. The visualized sinuses are clear except for some minimal mucosal thickening at the upper posterior margin of the right maxillary sinus representing no change from 01/23/2018. The mastoid air cells appear clear. Impression: 1. No acute intracranial bleed or other acute intracranial process is seen. 2. Age-appropriate moderate generalized atrophy with chronic white matter changes, most suggestive of chronic microvascular disease. There is either a prominent perivascular space or lacunar infarct within the internal capsule on the right on axial image #21. No new sizable territorial low attenuation infarct is seen. 3. No skull fracture is seen.
== END 2018-10-26 22:14 | disposition home or self-care (01) ==
LOC: ED 20:08
DX: S09.90XA Unspecified injury of head, initial encounter (principal); W01.0XXA Fall on same level from slipping, tripping and stumbling without subsequent striking against object, initial encounter; F03.90 Unspecified dementia, unspecified severity, without behavioral disturbance, psychotic disturbance, mood disturbance, and anxiety; Z86.73 Personal history of transient ischemic attack (TIA), and cerebral infarction without residual deficits; Z79.899 Other long term (current) drug therapy; F41.9 Anxiety disorder, unspecified
CPT/HCPCS: 70450; 99284; A9270-GY